=== PATIENT | female | born 1930 | race Caucasian/White ===

== ENCOUNTER 2017-08-17 05:43 | Inpatient (IN) | payer MEDICARE ==
[2017-08-17 06:03] LABS: BASO % 0.1 % (0.0-1.0); HEMATOCRIT 44.1 % (36.0-47.0); HEMOGLOBIN 13.4 g/dl (12.0-16.0); IMMATURE GRANULOCYTE # 0.1 10^3/uL (0-0); IMMATURE GRANULOCYTE % 0.7 % (0-0); LYMPH # 0.6 10^3/uL (1.5-4.5); LYMPH % 4.9 % (24.0-44.0); MEAN CORPUSCULAR HEMOGLOBIN 30.4 pg (27.0-33.0); MEAN CORPUSCULAR HGB CONC 30.4 g/dl (32.0-36.5); MONO # 1.1 10^3/uL (0.0-0.8); MONO % 9.1 % (0.0-5.0); NEUTROPHILS % 85.2 % (36.0-66.0); PLATELET COUNT, AUTOMATED 286 10^3/uL (150-450); RED BLOOD COUNT 4.41 10^6/uL (4.00-5.40); RED CELL DISTRIBUTION WIDTH 14.4 % (11.5-14.5); WHITE BLOOD COUNT 11.7 10^3/uL (4.0-10.0)
[2017-08-17] MEDS: IPRATROPIUM 0.5MG/ALBUTEROL 2.5MG INH SOL UD 3ML (DUONEB)(J7620) NEB ×8 (06:05→23:34)
[2017-08-17 06:11] LABS: ABG BASE EXCESS 11.3 (-2.0-2.0); ABG HCO3 42.7 MEQ/L (22.0-26.0); ABG PARTIAL PRESSURE O2 96.1 mmHg (75.0-100.0); ABG STANDARD HCO3 35.1 MEQ/L (22.0-26.0); ABG TOTAL CO2 45.7 MEQ/L (23.0-31.0); ABG pH (ARTERIAL) 7.263 UNITS (7.350-7.450)
[2017-08-17 06:15] LABS: ABG PARTIAL PRESSURE CO2 96.7 mmHg (35.0-45.0)
[2017-08-17] MEDS: DILUENT IV (06:30)
[2017-08-17] MEDS: PIPERACILLIN/TAZOBACTAM SOD 3.375 GM in APPROPRIATE DILUENT 1 EA IV (06:30)
[2017-08-17] MEDS: NS IV (06:30)
[2017-08-17 06:31] LABS: ANION GAP 5 MEQ/L (8-16); BLOOD UREA NITROGEN 26 MG/DL (7-18); CALCIUM LEVEL 9.3 MG/DL (8.8-10.2); CARBON DIOXIDE LEVEL 42 MEQ/L (21-32); CHLORIDE LEVEL 98 MEQ/L (98-107); CREATININE FOR GFR 0.81 MG/DL (0.55-1.30); GLOMERULAR FILTRATION RATE > 60.0 (>32); GLUCOSE, FASTING 146 MG/DL (70-100); POTASSIUM SERUM 4.2 MEQ/L (3.5-5.1); SODIUM LEVEL 145 MEQ/L (136-145); TROPONIN I 0.08 NG/ML (< 0.10)
[2017-08-17 06:32] LABS: CK-MB VALUE MASS 6.2 NG/ML (0.0-3.6); CPK CREATINE PHOSPHOKINASE 82 U/L (26-192); MB/CK RELATIVE INDEX 7.56 (< OR =4)
[2017-08-17] MEDS ORDERED: ISOVUE-370 76% 100ML VIAL (Q9967) As Ordered (06:41)
[2017-08-17 06:46] LABS: INFLUENZA A AMPLIFICATION NEGATIVE (NEGATIVE); INFLUENZA B AMPLIFICATION NEGATIVE (NEGATIVE)
[2017-08-17 07:22] LABS: ABG BASE EXCESS 8.1 (-2.0-2.0); ABG HCO3 38.6 MEQ/L (22.0-26.0); ABG O2 SATURATION 86.4 % (95.0-99.0); ABG PARTIAL PRESSURE O2 60.1 mmHg (75.0-100.0); ABG STANDARD HCO3 31.6 MEQ/L (22.0-26.0); ABG TOTAL CO2 41.3 MEQ/L (23.0-31.0)
[2017-08-17 07:26] LABS: ABG pH (ARTERIAL) 7.249 UNITS (7.350-7.450)
[2017-08-17 07:27] LABS: ABG PARTIAL PRESSURE CO2 90.2 mmHg (35.0-45.0)
[2017-08-17 08:25] LABS: BILIRUBIN, URINE MANUAL NEGATIVE (NEGATIVE); BLOOD URINE MANUAL RFX POSITIVE (NEGATIVE); GLUCOSE, URINE (UA) MANUAL NEGATIVE (NEGATIVE); KETONE, URINE MANUAL 1+ mg/dL (NEGATIVE); NITRITE, URINE MANUAL RFX NEGATIVE (NEGATIVE); PROTEIN, URINE MANUAL REFLEX TRACE mg/dL (NEGATIVE); UROBILINOGEN, URINE MANUAL NORMAL (NORMAL)
[2017-08-17 08:26] LABS: MICROSCOPIC INDICATED? RFX YES (NO)
[2017-08-17 08:41] LABS: BACTERIA, URINE NONE SEEN; HYALINE CAST, URINE NONE SEEN /lpf (0-1); MICROSCOPIC EXAM PERFORMED; RBC, URINE 0-1 /hpf (0-3); SQUAMOUS EPITHELIAL CELL URINE SMALL AMOUNT /hpf (SMALL AMT); WBC, URINE MAN RFX 0-1 /hpf (0-3)
[2017-08-17 08:42] LABS: LACTIC ACID SEPSIS PROTOCOL 2.1 MMOL/L (0.4-2.0)
[2017-08-17 08:45] LABS: AMPHETAMINES LEVEL URINE NEGATIVE (NEGATIVE); BARBITURATES URINE NEGATIVE (NEGATIVE); BENZODIAZEPINES URINE POSITIVE (NEGATIVE); CANNABINOIDS URINE NEGATIVE (NEGATIVE); COCAINE METABOLITE URINE NEGATIVE (NEGATIVE); METHADONE URINE NEGATIVE (NEGATIVE); OPIATES URINE NEGATIVE (NEGATIVE); PHENCYCLIDINE URINE NEGATIVE (NEGATIVE)
[2017-08-17 08:49] LABS: C REACTIVE PROTEIN QUANTITATIV 2.42 MG/DL (0.00-0.30); NT-PRO BNP 13971 PG/ML (<450)
[2017-08-17] MEDS: CHLORHEXIDINE ORAL RINSE 0.12%/15ML 120ML BOTTLE MT ×2 (09:00→21:01)
[2017-08-17 09:22] LABS: ERYTHROCYTE SEDIMENTATION RATE 24 mm/hr (0-42)
[2017-08-17] MEDS: AZITHROMYCIN INJ 500 MG, VIAL MATE ADAPTER 1 EACH in D5W 250 ML IV (09:35)
[2017-08-17] MEDS: methylPREDNISolone INJ 125 MG/2 ML VIAL (J2930) IV ×2 (09:35→16:38)
[2017-08-17] MEDS: ENOXAPARIN 40 MG/0.4 ML SYRINGE (J1650) SC (09:35)
[2017-08-17] MEDS ORDERED: CEFTRIAXONE SOD 2 GM in APPROPRIATE DILUENT 1 EA IV (10:00)
[2017-08-17 10:36] LABS: ABG BASE EXCESS 8.8 (-2.0-2.0); ABG HCO3 39.7 MEQ/L (22.0-26.0); ABG O2 SATURATION 96.5 % (95.0-99.0); ABG PARTIAL PRESSURE CO2 93.4 mmHg (35.0-45.0); ABG PARTIAL PRESSURE O2 96.5 mmHg (75.0-100.0); ABG STANDARD HCO3 32.6 MEQ/L (22.0-26.0); ABG TOTAL CO2 42.5 MEQ/L (23.0-31.0); ABG pH (ARTERIAL) 7.246 UNITS (7.350-7.450)
[2017-08-17] MEDS: CEFTRIAXONE SOD 2 GM in APPROPRIATE DILUENT 1 EA IV (10:53)
[2017-08-17] MEDS ORDERED: MIDAZOLAM INJ 2 MG/2 ML VIAL (J2250) As Ordered (11:54)
[2017-08-17] MEDS: MIDAZOLAM INJ 2 MG/2 ML VIAL (J2250) IV ×4 (11:55→19:51)
[2017-08-17] MEDS ORDERED: PROPOFOL 1,000 MG/100 ML VIAL As Ordered (11:57)
[2017-08-17] MEDS: PROPOFOL 1,000 MG in APPROPRIATE DILUENT 1 EA IV (12:05)
[2017-08-17] MEDS: PHENYLEPHRINE 0.5% NASAL SPRAY 15 ML As Ordered (12:18)
[2017-08-17 12:32] LABS: INR 1.27; PROTHROMBIN TIME 16.2 SECONDS (12.4-14.5)
[2017-08-17 12:33] LABS: PARTIAL THROMBOPLASTIN TIME 33.2 SECONDS (26.8-37.9)
[2017-08-17] MEDS ORDERED: NS 1,000 ML IV (12:45)
[2017-08-17 12:53] LABS: ABG BASE EXCESS 7.2 (-2.0-2.0); ABG HCO3 31.6 MEQ/L (22.0-26.0); ABG O2 SATURATION 99.7 % (95.0-99.0); ABG PARTIAL PRESSURE O2 354.4 mmHg (75.0-100.0); ABG STANDARD HCO3 31.1 MEQ/L (22.0-26.0); ABG TOTAL CO2 32.9 MEQ/L (23.0-31.0); ABG pH (ARTERIAL) 7.474 UNITS (7.350-7.450)
[2017-08-17 13:11] LABS: CK-MB VALUE MASS 5.5 NG/ML (0.0-3.6); CPK CREATINE PHOSPHOKINASE 50 U/L (26-192); TROPONIN I 0.07 NG/ML (< 0.10)
[2017-08-17] MEDS ORDERED: fentaNYL 100 MCG/2 ML INJECTION (J3010) As Ordered (13:20)
[2017-08-17] MEDS: LIDOCAINE W/EPINEPHRINE 1% 20ML VIAL As Ordered (13:23)
[2017-08-17] MEDS ORDERED: PHENYLephrine HCL 500 MCG/5 ML (100MCG/ML) SYRINGE (J2370) As Ordered ×2 (13:23→13:53)
[2017-08-17] MEDS ORDERED: ROCURONIUM BROMIDE 50 MG/5 ML VIAL As Ordered (13:55)
[2017-08-17] MEDS ORDERED: DEXTROSE 50% 50 ML SYRINGE IV (14:30)
[2017-08-17] MEDS ORDERED: GLUCOSE 4 GM CHEW TABLET PO (14:30)
[2017-08-17] MEDS ORDERED: GLUCAGON FOR INJ 1 MG VIAL (J1610) SC (14:30)
[2017-08-17] MEDS: PANTOPRAZOLE 40MG INJ (PROTONIX) (C9113) IV (14:36)
[2017-08-17] MEDS: D5W/0.45% SODIUM CHLORIDE 1,000 ML IV (14:38)
[2017-08-17] MEDS: HumaLOG INSULIN (NovoLOG) PER UNIT SC ×2 (14:49→18:16)
[2017-08-17 15:07] LABS: BEDSIDE GLUCOSE 137 MG/DL (83-110)
[2017-08-17 15:12] LABS: ABG BASE EXCESS 12.2 (-2.0-2.0); ABG HCO3 36.6 MEQ/L (22.0-26.0); ABG O2 SATURATION 95.4 % (95.0-99.0); ABG PARTIAL PRESSURE CO2 46.1 mmHg (35.0-45.0); ABG PARTIAL PRESSURE O2 67.8 mmHg (75.0-100.0); ABG pH (ARTERIAL) 7.518 UNITS (7.350-7.450)
[2017-08-17] MEDS: NS 500 ML IV (16:00)
[2017-08-17 17:21] LABS: ALBUMIN 2.7 GM/DL (3.2-5.2); ANION GAP 7 MEQ/L (8-16); BLOOD UREA NITROGEN 23 MG/DL (7-18); CALCIUM LEVEL 8.4 MG/DL (8.8-10.2); CARBON DIOXIDE LEVEL 38 MEQ/L (21-32); CHLORIDE LEVEL 102 MEQ/L (98-107); CK-MB VALUE MASS 3.8 NG/ML (0.0-3.6); CPK CREATINE PHOSPHOKINASE 38 U/L (26-192); CREATININE FOR GFR 1.02 MG/DL (0.55-1.30); GLOMERULAR FILTRATION RATE 54.8 (>32); GLUCOSE, FASTING 158 MG/DL (70-100); PHOSPHORUS LEVEL 2.4 MG/DL (2.5-4.9); POTASSIUM SERUM 3.3 MEQ/L (3.5-5.1); SODIUM LEVEL 147 MEQ/L (136-145); TROPONIN I 0.07 NG/ML (< 0.10)
[2017-08-17 18:02] LABS: BEDSIDE GLUCOSE 141 MG/DL (83-110)
[2017-08-17] MEDS: SODIUM CHLORIDE 0.45% 1000 ML IV (18:15)
[2017-08-17] MEDS: KCL 10MEQ/100ML SWI *ED/ICU* 10 MEQ in APPROPRIATE DILUENT 1 EA IV ×4 (18:16→21:57)
[2017-08-17] MEDS: MORPHINE 2 MG/ML 1ML SYRINGE (J2270) IV ×2 (19:00→22:33)
[2017-08-17 19:21] LABS: HEMATOCRIT 37.2 % (36.0-47.0); HEMOGLOBIN 11.2 g/dl (12.0-16.0)
[2017-08-17] MEDS: NYSTATIN 100,000 UNITS/GM TOPICAL PWD 15 GM TOP (21:01)
[2017-08-18 00:21] LABS: CPK CREATINE PHOSPHOKINASE 27 U/L (26-192); TROPONIN I 0.05 NG/ML (< 0.10)
[2017-08-18 00:22] LABS: CK-MB VALUE MASS 1.8 NG/ML (0.0-3.6); MB/CK RELATIVE INDEX 6.66 (< OR =4)
[2017-08-18] MEDS: methylPREDNISolone INJ 125 MG/2 ML VIAL (J2930) IV ×4 (00:34→23:58)
[2017-08-18] MEDS: HumaLOG INSULIN (NovoLOG) PER UNIT SC ×5 (00:34→23:58)
[2017-08-18 00:36] LABS: BEDSIDE GLUCOSE 166 MG/DL (83-110)
[2017-08-18] MEDS: IPRATROPIUM 0.5MG/ALBUTEROL 2.5MG INH SOL UD 3ML (DUONEB)(J7620) NEB ×6 (03:04→22:46)
[2017-08-18] MEDS: MIDAZOLAM INJ 2 MG/2 ML VIAL (J2250) IV (03:37)
[2017-08-18] MEDS: MORPHINE 2 MG/ML 1ML SYRINGE (J2270) IV ×4 (03:39→21:11)
[2017-08-18 05:06] LABS: HEMATOCRIT 33.7 % (36.0-47.0); HEMOGLOBIN 10.5 g/dl (12.0-16.0); IMMATURE GRANULOCYTE % 0.5 % (0-3.0); LYMPH % 1.2 % (24.0-44.0); MEAN CORPUSCULAR HEMOGLOBIN 29.9 pg (27.0-33.0); MEAN CORPUSCULAR HGB CONC 31.2 g/dl (32.0-36.5); MONO # 0.5 10^3/uL (0.0-0.8); MONO % 4.7 % (0.0-5.0); NEUTROPHILS # 9.4 10^3/uL (1.8-7.7); NEUTROPHILS % 93.6 % (36.0-66.0); PLATELET COUNT, AUTOMATED 196 10^3/uL (150-450); RED BLOOD COUNT 3.51 10^6/uL (4.00-5.40); RED CELL DISTRIBUTION WIDTH 14.6 % (11.5-14.5)
[2017-08-18 05:25] LABS: ANION GAP 5 MEQ/L (8-16); BLOOD UREA NITROGEN 22 MG/DL (7-18); CALCIUM LEVEL 8.2 MG/DL (8.8-10.2); CARBON DIOXIDE LEVEL 37 MEQ/L (21-32); CHLORIDE LEVEL 102 MEQ/L (98-107); CREATININE FOR GFR 0.66 MG/DL (0.55-1.30); GLOMERULAR FILTRATION RATE > 60.0 (>32); GLUCOSE, FASTING 175 MG/DL (70-100); POTASSIUM SERUM 3.5 MEQ/L (3.5-5.1); SODIUM LEVEL 144 MEQ/L (136-145)
[2017-08-18 05:26] LABS: ABG BASE EXCESS 5.6 (-2.0-2.0); ABG HCO3 31.1 MEQ/L (22.0-26.0); ABG PARTIAL PRESSURE CO2 49.2 mmHg (35.0-45.0); ABG PARTIAL PRESSURE O2 104.1 mmHg (75.0-100.0); ABG STANDARD HCO3 29.6 MEQ/L (22.0-26.0); ABG TOTAL CO2 32.6 MEQ/L (23.0-31.0); ABG pH (ARTERIAL) 7.418 UNITS (7.350-7.450)
[2017-08-18 06:16] LABS: LYMPH # 0.1 10^3/uL (1.5-4.5); POSITIVE DIFF POS FLAG
[2017-08-18] MEDS: PANTOPRAZOLE 40MG INJ (PROTONIX) (C9113) IV (08:00)
[2017-08-18] MEDS: ENOXAPARIN 40 MG/0.4 ML SYRINGE (J1650) SC (08:27)
[2017-08-18] MEDS: AZITHROMYCIN INJ 500 MG, VIAL MATE ADAPTER 1 EACH in D5W 250 ML IV (08:27)
[2017-08-18] MEDS: NYSTATIN 100,000 UNITS/GM TOPICAL PWD 15 GM TOP ×2 (08:28→20:53)
[2017-08-18] MEDS: CHLORHEXIDINE ORAL RINSE 0.12%/15ML 120ML BOTTLE MT ×2 (08:37→20:54)
[2017-08-18] MEDS: D5W/0.45% SODIUM CHLORIDE 1,000 ML IV (08:40)
[2017-08-18] MEDS: CEFTRIAXONE SOD 2 GM in APPROPRIATE DILUENT 1 EA IV (10:27)
[2017-08-18] MEDS ORDERED: ISOVUE-370 76% 100ML VIAL (Q9967) As Ordered (11:00)
[2017-08-18 11:35] LABS: BEDSIDE GLUCOSE 143 MG/DL (83-110)
[2017-08-18] MEDS: PROPOFOL 1,000 MG in APPROPRIATE DILUENT 1 EA IV (12:05)
[2017-08-18] MEDS: SLF 3 ML SYR IV ×2 (14:00→20:54)
[2017-08-18] MEDS ORDERED: SLF 3 ML SYR IV (14:15)
[2017-08-18 17:23] LABS: BEDSIDE GLUCOSE 175 MG/DL (83-110)
[2017-08-18] MEDS: ACETAMINOPHEN TAB 650MG DOSE (2X325MG) PO (23:58)
[2017-08-19] MEDS: MIDAZOLAM INJ 2 MG/2 ML VIAL (J2250) IV (00:17)
[2017-08-19 00:25] LABS: BEDSIDE GLUCOSE 206 MG/DL (83-110)
[2017-08-19] MEDS: IPRATROPIUM 0.5MG/ALBUTEROL 2.5MG INH SOL UD 3ML (DUONEB)(J7620) NEB ×6 (03:09→23:39)
[2017-08-19 04:19] LABS: BASO % 0.1 % (0.0-1.0); HEMATOCRIT 30.8 % (36.0-47.0); HEMOGLOBIN 9.9 g/dl (12.0-16.0); IMMATURE GRANULOCYTE % 0.7 % (0-3.0); LYMPH % 0.7 % (24.0-44.0); MEAN CORPUSCULAR HEMOGLOBIN 30.1 pg (27.0-33.0); MEAN CORPUSCULAR HGB CONC 32.1 g/dl (32.0-36.5); MEAN CORPUSCULAR VOLUME 93.6 fl (80.0-96.0); MONO # 0.7 10^3/uL (0.0-0.8); MONO % 4.4 % (0.0-5.0); NEUTROPHILS % 94.1 % (36.0-66.0); PLATELET COUNT, AUTOMATED 164 10^3/uL (150-450); RED BLOOD COUNT 3.29 10^6/uL (4.00-5.40); RED CELL DISTRIBUTION WIDTH 14.5 % (11.5-14.5); WHITE BLOOD COUNT 14.9 10^3/uL (4.0-10.0)
[2017-08-19 04:37] LABS: ANION GAP 6 MEQ/L (8-16); BLOOD UREA NITROGEN 26 MG/DL (7-18); CALCIUM LEVEL 8.3 MG/DL (8.8-10.2); CARBON DIOXIDE LEVEL 32 MEQ/L (21-32); CHLORIDE LEVEL 102 MEQ/L (98-107); CREATININE FOR GFR 0.77 MG/DL (0.55-1.30); GLOMERULAR FILTRATION RATE > 60.0 (>32); GLUCOSE, FASTING 117 MG/DL (70-100); POTASSIUM SERUM 3.7 MEQ/L (3.5-5.1); SODIUM LEVEL 140 MEQ/L (136-145)
[2017-08-19] MEDS: HumaLOG INSULIN (NovoLOG) PER UNIT SC ×3 (05:34→17:56)
[2017-08-19 05:38] LABS: BEDSIDE GLUCOSE 140 MG/DL (83-110)
[2017-08-19] MEDS: SLF 3 ML SYR IV ×3 (05:40→21:33)
[2017-08-19 05:48] LABS: LYMPH # 0.1 10^3/uL (1.5-4.5); POSITIVE DIFF POS FLAG
[2017-08-19 05:49] LABS: ADD MANUAL DIFFER NO; DIFF SLIDE NUMBER 36
[2017-08-19 06:06] LABS: ABG BASE EXCESS 8.2 (-2.0-2.0); ABG HCO3 31.3 MEQ/L (22.0-26.0); ABG O2 SATURATION 96.7 % (95.0-99.0); ABG PARTIAL PRESSURE CO2 37.7 mmHg (35.0-45.0); ABG PARTIAL PRESSURE O2 77.5 mmHg (75.0-100.0); ABG TOTAL CO2 32.5 MEQ/L (23.0-31.0); ABG pH (ARTERIAL) 7.537 UNITS (7.350-7.450)
[2017-08-19] MEDS: D5W/0.45% SODIUM CHLORIDE 1,000 ML IV (08:35)
[2017-08-19] MEDS: methylPREDNISolone INJ 125 MG/2 ML VIAL (J2930) IV ×2 (08:35→16:08)
[2017-08-19] MEDS: MORPHINE 4 MG/ML 1ML VIAL (J2270) IV (08:36)
[2017-08-19] MEDS: CHLORHEXIDINE ORAL RINSE 0.12%/15ML 120ML BOTTLE MT ×2 (09:46→21:00)
[2017-08-19] MEDS: PANTOPRAZOLE 40MG INJ (PROTONIX) (C9113) IV (09:47)
[2017-08-19] MEDS: NYSTATIN 100,000 UNITS/GM TOPICAL PWD 15 GM TOP ×2 (09:47→21:32)
[2017-08-19] MEDS: NICOTINE 14 MG/24 HR TRANSDERMAL TD (09:49)
[2017-08-19] MEDS: ENOXAPARIN 40 MG/0.4 ML SYRINGE (J1650) SC (09:49)
[2017-08-19] MEDS: AZITHROMYCIN INJ 500 MG, VIAL MATE ADAPTER 1 EACH in D5W 250 ML IV (09:49)
[2017-08-19] MEDS: ALPRAZolam 0.25 MG TAB PO (09:50)
[2017-08-19] MEDS: CEFTRIAXONE SOD 2 GM in APPROPRIATE DILUENT 1 EA IV (10:51)
[2017-08-19 12:07] LABS: BEDSIDE GLUCOSE 219 MG/DL (83-110)
[2017-08-19 17:59] LABS: BEDSIDE GLUCOSE 147 MG/DL (83-110)
[2017-08-20] MEDS: HumaLOG INSULIN (NovoLOG) PER UNIT SC ×4 (00:01→18:35)
[2017-08-20] MEDS: D5W/0.45% SODIUM CHLORIDE 1,000 ML IV ×2 (00:02→17:11)
[2017-08-20 00:06] LABS: BODY FLUID CULTURE Not Indicated (.); LEGIONELLA ANTIGEN URINE Negative (Negative); ORGANISM ID Not indicated. (.); SPECIMEN SOURCE Urine (.); URINE STREP PNEUMONIAE ANTIGEN Negative (Negative)
[2017-08-20 00:17] LABS: BEDSIDE GLUCOSE 192 MG/DL (83-110)
[2017-08-20] MEDS: IPRATROPIUM 0.5MG/ALBUTEROL 2.5MG INH SOL UD 3ML (DUONEB)(J7620) NEB ×5 (04:17→20:35)
[2017-08-20 04:25] LABS: HEMATOCRIT 31.3 % (36.0-47.0); HEMOGLOBIN 10.2 g/dl (12.0-16.0); IMMATURE GRANULOCYTE % 0.9 % (0-3.0); LYMPH % 0.9 % (24.0-44.0); MEAN CORPUSCULAR HGB CONC 32.6 g/dl (32.0-36.5); MEAN CORPUSCULAR VOLUME 92.1 fl (80.0-96.0); MONO # 0.6 10^3/uL (0.0-0.8); MONO % 4.7 % (0.0-5.0); NEUTROPHILS # 10.9 10^3/uL (1.8-7.7); NEUTROPHILS % 93.5 % (36.0-66.0); PLATELET COUNT, AUTOMATED 153 10^3/uL (150-450); RED CELL DISTRIBUTION WIDTH 14.6 % (11.5-14.5); WHITE BLOOD COUNT 11.7 10^3/uL (4.0-10.0)
[2017-08-20 04:38] LABS: LYMPH # 0.1 10^3/uL (1.5-4.5); POSITIVE DIFF POS FLAG
[2017-08-20 04:45] LABS: ANION GAP 4 MEQ/L (8-16); BLOOD UREA NITROGEN 22 MG/DL (7-18); CALCIUM LEVEL 8.5 MG/DL (8.8-10.2); CARBON DIOXIDE LEVEL 33 MEQ/L (21-32); CHLORIDE LEVEL 101 MEQ/L (98-107); CREATININE FOR GFR 0.48 MG/DL (0.55-1.30); GLOMERULAR FILTRATION RATE > 60.0 (>32); GLUCOSE, FASTING 105 MG/DL (70-100); POTASSIUM SERUM 3.8 MEQ/L (3.5-5.1); SODIUM LEVEL 138 MEQ/L (136-145)
[2017-08-20 06:01] LABS: ABG BASE EXCESS 3.5 (-2.0-2.0); ABG HCO3 27.4 MEQ/L (22.0-26.0); ABG O2 SATURATION 99.2 % (95.0-99.0); ABG PARTIAL PRESSURE CO2 38.8 mmHg (35.0-45.0); ABG STANDARD HCO3 27.6 MEQ/L (22.0-26.0); ABG TOTAL CO2 28.5 MEQ/L (23.0-31.0); ABG pH (ARTERIAL) 7.466 UNITS (7.350-7.450)
[2017-08-20 06:23] LABS: BEDSIDE GLUCOSE 156 MG/DL (83-110)
[2017-08-20] MEDS: SLF 3 ML SYR IV ×3 (06:25→21:19)
[2017-08-20] MEDS: methylPREDNISolone INJ 125 MG/2 ML VIAL (J2930) IV ×2 (07:30)
[2017-08-20] MEDS: ENOXAPARIN 40 MG/0.4 ML SYRINGE (J1650) SC (08:39)
[2017-08-20] MEDS: NYSTATIN 100,000 UNITS/GM TOPICAL PWD 15 GM TOP ×2 (08:40→21:18)
[2017-08-20] MEDS: NICOTINE 14 MG/24 HR TRANSDERMAL TD (08:40)
[2017-08-20] MEDS: PANTOPRAZOLE 40MG INJ (PROTONIX) (C9113) IV (08:40)
[2017-08-20] MEDS: AZITHROMYCIN INJ 500 MG, VIAL MATE ADAPTER 1 EACH in D5W 250 ML IV (08:40)
[2017-08-20] MEDS: CHLORHEXIDINE ORAL RINSE 0.12%/15ML 120ML BOTTLE MT ×2 (08:41→21:18)
[2017-08-20] MEDS: CEFTRIAXONE SOD 2 GM in APPROPRIATE DILUENT 1 EA IV (09:50)
[2017-08-20 11:45] LABS: BEDSIDE GLUCOSE 166 MG/DL (83-110)
[2017-08-20] MEDS: ALPRAZolam 0.25 MG TAB PO ×2 (11:57→21:18)
[2017-08-20] MEDS: ONDANSETRON 4MG/2ML VIAL (J2405) IV (11:57)
[2017-08-20 18:38] LABS: BEDSIDE GLUCOSE 139 MG/DL (83-110)
[2017-08-21] MEDS: IPRATROPIUM 0.5MG/ALBUTEROL 2.5MG INH SOL UD 3ML (DUONEB)(J7620) NEB ×7 (00:09→23:31)
[2017-08-21 00:14] LABS: BEDSIDE GLUCOSE 131 MG/DL (83-110)
[2017-08-21] MEDS: D5W/0.45% SODIUM CHLORIDE 1,000 ML IV ×2 (02:20→10:07)
[2017-08-21 04:27] LABS: HEMATOCRIT 31.4 % (36.0-47.0); HEMOGLOBIN 10.1 g/dl (12.0-16.0); IMMATURE GRANULOCYTE % 0.6 % (0-3.0); LYMPH # 0.3 10^3/uL (1.5-4.5); LYMPH % 3.9 % (24.0-44.0); MEAN CORPUSCULAR HEMOGLOBIN 30.3 pg (27.0-33.0); MEAN CORPUSCULAR HGB CONC 32.2 g/dl (32.0-36.5); MEAN CORPUSCULAR VOLUME 94.3 fl (80.0-96.0); MONO # 0.9 10^3/uL (0.0-0.8); MONO % 9.7 % (0.0-5.0); NEUTROPHILS # 7.5 10^3/uL (1.8-7.7); NEUTROPHILS % 85.8 % (36.0-66.0); PLATELET COUNT, AUTOMATED 129 10^3/uL (150-450); RED BLOOD COUNT 3.33 10^6/uL (4.00-5.40); RED CELL DISTRIBUTION WIDTH 14.6 % (11.5-14.5); WHITE BLOOD COUNT 8.8 10^3/uL (4.0-10.0)
[2017-08-21 04:48] LABS: ANION GAP 6 MEQ/L (8-16); BLOOD UREA NITROGEN 17 MG/DL (7-18); CALCIUM LEVEL 7.8 MG/DL (8.8-10.2); CARBON DIOXIDE LEVEL 33 MEQ/L (21-32); CHLORIDE LEVEL 101 MEQ/L (98-107); CREATININE FOR GFR 0.51 MG/DL (0.55-1.30); GLOMERULAR FILTRATION RATE > 60.0 (>32); GLUCOSE, FASTING 103 MG/DL (70-100); POTASSIUM SERUM 3.6 MEQ/L (3.5-5.1); SODIUM LEVEL 140 MEQ/L (136-145)
[2017-08-21] MEDS: SLF 3 ML SYR IV ×3 (06:00→21:43)
[2017-08-21] MEDS: HumaLOG INSULIN (NovoLOG) PER UNIT SC ×4 (06:00→17:23)
[2017-08-21] MEDS: methylPREDNISolone INJ 125 MG/2 ML VIAL (J2930) IV (09:56)
[2017-08-21] MEDS: PANTOPRAZOLE 40MG INJ (PROTONIX) (C9113) IV (09:56)
[2017-08-21] MEDS: CHLORHEXIDINE ORAL RINSE 0.12%/15ML 120ML BOTTLE MT ×2 (09:56→21:00)
[2017-08-21] MEDS: NYSTATIN 100,000 UNITS/GM TOPICAL PWD 15 GM TOP ×2 (09:56→21:43)
[2017-08-21] MEDS: AZITHROMYCIN INJ 500 MG, VIAL MATE ADAPTER 1 EACH in D5W 250 ML IV (09:56)
[2017-08-21] MEDS: ENOXAPARIN 40 MG/0.4 ML SYRINGE (J1650) SC (09:56)
[2017-08-21] MEDS: NICOTINE 14 MG/24 HR TRANSDERMAL TD (09:57)
[2017-08-21] MEDS: CEFTRIAXONE SOD 2 GM in APPROPRIATE DILUENT 1 EA IV (11:09)
[2017-08-21] MEDS: ALPRAZolam 0.25 MG TAB PO (11:16)
[2017-08-21 13:04] LABS: BEDSIDE GLUCOSE 108 MG/DL (83-110)
[2017-08-21 13:04] LABS: BEDSIDE GLUCOSE 185 MG/DL (83-110)
[2017-08-21] MEDS: ACETAMINOPHEN TAB 650MG DOSE (2X325MG) PO (15:23)
[2017-08-21 17:16] LABS: BEDSIDE GLUCOSE 128 MG/DL (83-110)
[2017-08-22] MEDS: HumaLOG INSULIN (NovoLOG) PER UNIT SC ×4 (00:25→18:30)
[2017-08-22] MEDS: D5W/0.45% SODIUM CHLORIDE 1,000 ML IV (01:54)
[2017-08-22] MEDS: IPRATROPIUM 0.5MG/ALBUTEROL 2.5MG INH SOL UD 3ML (DUONEB)(J7620) NEB ×5 (04:00→20:00)
[2017-08-22] MEDS: SLF 3 ML SYR IV ×3 (05:38→22:00)
[2017-08-22 06:01] LABS: BASO % 0.1 % (0.0-1.0); EOS % 0.1 % (0.0-3.0); HEMATOCRIT 34.5 % (36.0-47.0); HEMOGLOBIN 10.9 g/dl (12.0-16.0); IMMATURE GRANULOCYTE % 0.3 % (0-3.0); LYMPH # 0.4 10^3/uL (1.5-4.5); LYMPH % 4.1 % (24.0-44.0); MEAN CORPUSCULAR HEMOGLOBIN 29.9 pg (27.0-33.0); MEAN CORPUSCULAR HGB CONC 31.6 g/dl (32.0-36.5); MEAN CORPUSCULAR VOLUME 94.5 fl (80.0-96.0); MONO % 11.1 % (0.0-5.0); NEUTROPHILS # 7.4 10^3/uL (1.8-7.7); NEUTROPHILS % 84.3 % (36.0-66.0); PLATELET COUNT, AUTOMATED 147 10^3/uL (150-450); RED BLOOD COUNT 3.65 10^6/uL (4.00-5.40); RED CELL DISTRIBUTION WIDTH 14.7 % (11.5-14.5); WHITE BLOOD COUNT 8.8 10^3/uL (4.0-10.0)
[2017-08-22 06:20] LABS: ANION GAP 5 MEQ/L (8-16); BLOOD UREA NITROGEN 17 MG/DL (7-18); CALCIUM LEVEL 8.4 MG/DL (8.8-10.2); CARBON DIOXIDE LEVEL 33 MEQ/L (21-32); CHLORIDE LEVEL 102 MEQ/L (98-107); CREATININE FOR GFR 0.42 MG/DL (0.55-1.30); GLOMERULAR FILTRATION RATE > 60.0 (>32); GLUCOSE, FASTING 97 MG/DL (70-100); POTASSIUM SERUM 3.8 MEQ/L (3.5-5.1); SODIUM LEVEL 140 MEQ/L (136-145)
[2017-08-22] MEDS: AZITHROMYCIN INJ 500 MG, VIAL MATE ADAPTER 1 EACH in D5W 250 ML IV (08:38)
[2017-08-22] MEDS: methylPREDNISolone INJ 125 MG/2 ML VIAL (J2930) IV (08:39)
[2017-08-22] MEDS: PANTOPRAZOLE 40MG INJ (PROTONIX) (C9113) IV (08:39)
[2017-08-22] MEDS: ALPRAZolam 0.25 MG TAB PO ×2 (08:41→18:29)
[2017-08-22] MEDS: NICOTINE 14 MG/24 HR TRANSDERMAL TD (08:42)
[2017-08-22] MEDS: CHLORHEXIDINE ORAL RINSE 0.12%/15ML 120ML BOTTLE MT ×2 (08:42→22:19)
[2017-08-22] MEDS: NYSTATIN 100,000 UNITS/GM TOPICAL PWD 15 GM TOP ×2 (08:50→22:20)
[2017-08-22] MEDS: CEFTRIAXONE SOD 2 GM in APPROPRIATE DILUENT 1 EA IV (10:41)
[2017-08-22 12:09] LABS: BEDSIDE GLUCOSE 148 MG/DL (83-110)
[2017-08-22 12:09] LABS: BEDSIDE GLUCOSE 161 MG/DL (83-110)
[2017-08-22 21:45] LABS: BEDSIDE GLUCOSE 142 MG/DL (83-110)
[2017-08-22] MEDS: ACETAMINOPHEN TAB 650MG DOSE (2X325MG) PO (23:06)
[2017-08-23 00:03] LABS: BEDSIDE GLUCOSE 171 MG/DL (83-110)
[2017-08-23] MEDS: HumaLOG INSULIN (NovoLOG) PER UNIT SC ×4 (00:04→18:00)
[2017-08-23] MEDS: IPRATROPIUM 0.5MG/ALBUTEROL 2.5MG INH SOL UD 3ML (DUONEB)(J7620) NEB ×7 (00:06→23:43)
[2017-08-23] MEDS: SLF 3 ML SYR IV ×3 (05:50→21:21)
[2017-08-23] MEDS: D5W/0.45% SODIUM CHLORIDE 1,000 ML IV (05:59)
[2017-08-23] MEDS: methylPREDNISolone INJ 125 MG/2 ML VIAL (J2930) IV (08:44)
[2017-08-23] MEDS: PANTOPRAZOLE 40MG INJ (PROTONIX) (C9113) IV (08:44)
[2017-08-23] MEDS: CHLORHEXIDINE ORAL RINSE 0.12%/15ML 120ML BOTTLE MT ×2 (08:44→20:23)
[2017-08-23] MEDS: ALPRAZolam 0.25 MG TAB PO ×2 (08:45→20:23)
[2017-08-23] MEDS: AZITHROMYCIN INJ 500 MG, VIAL MATE ADAPTER 1 EACH in D5W 250 ML IV (08:45)
[2017-08-23] MEDS: NICOTINE 14 MG/24 HR TRANSDERMAL TD (08:45)
[2017-08-23] MEDS: NYSTATIN 100,000 UNITS/GM TOPICAL PWD 15 GM TOP ×2 (08:45→20:24)
[2017-08-23] MEDS: CEFTRIAXONE SOD 2 GM in APPROPRIATE DILUENT 1 EA IV (10:40)
[2017-08-23 11:58] LABS: BEDSIDE GLUCOSE 140 MG/DL (83-110)
[2017-08-23 18:04] LABS: BEDSIDE GLUCOSE 115 MG/DL (83-110)
[2017-08-23 18:04] LABS: BEDSIDE GLUCOSE 140 MG/DL (83-110)
[2017-08-24 00:01] LABS: BEDSIDE GLUCOSE 121 MG/DL (83-110)
[2017-08-24] MEDS: HumaLOG INSULIN (NovoLOG) PER UNIT SC ×4 (00:03→18:01)
[2017-08-24] MEDS: ACETAMINOPHEN TAB 650MG DOSE (2X325MG) PO (01:10)
[2017-08-24] MEDS: IPRATROPIUM 0.5MG/ALBUTEROL 2.5MG INH SOL UD 3ML (DUONEB)(J7620) NEB ×4 (03:34→20:00)
[2017-08-24] MEDS: SLF 3 ML SYR IV ×3 (05:52→21:50)
[2017-08-24] MEDS: D5W/0.45% SODIUM CHLORIDE 1,000 ML IV ×2 (05:52→19:11)
[2017-08-24 05:55] LABS: BEDSIDE GLUCOSE 117 MG/DL (83-110)
[2017-08-24] MEDS: CHLORHEXIDINE ORAL RINSE 0.12%/15ML 120ML BOTTLE MT ×2 (10:04→21:48)
[2017-08-24] MEDS: PANTOPRAZOLE 40MG INJ (PROTONIX) (C9113) IV (10:05)
[2017-08-24] MEDS: NYSTATIN 100,000 UNITS/GM TOPICAL PWD 15 GM TOP ×2 (10:05→21:49)
[2017-08-24] MEDS: methylPREDNISolone INJ 40 MG/1 ML VIAL (J2920) IV (10:05)
[2017-08-24] MEDS: NICOTINE 14 MG/24 HR TRANSDERMAL TD (10:05)
[2017-08-24] MEDS: ALPRAZolam 0.25 MG TAB PO ×3 (11:24→23:43)
[2017-08-24 17:36] LABS: BEDSIDE GLUCOSE 110 MG/DL (83-110)
[2017-08-24 17:37] LABS: BEDSIDE GLUCOSE 133 MG/DL (83-110)
[2017-08-25] MEDS: HumaLOG INSULIN (NovoLOG) PER UNIT SC ×4 (00:15→17:37)
[2017-08-25] MEDS: IPRATROPIUM 0.5MG/ALBUTEROL 2.5MG INH SOL UD 3ML (DUONEB)(J7620) NEB ×6 (01:31→21:53)
[2017-08-25 01:41] LABS: BEDSIDE GLUCOSE 112 MG/DL (83-110)
[2017-08-25] MEDS: ALPRAZolam 0.25 MG TAB PO ×4 (04:16→22:12)
[2017-08-25] MEDS: SLF 3 ML SYR IV ×3 (06:00→20:17)
[2017-08-25 06:45] LABS: BEDSIDE GLUCOSE 85 MG/DL (83-110)
[2017-08-25 07:31] LABS: BASO % 0.1 % (0.0-1.0); EOS # 0.1 10^3/uL (0.0-0.50); EOS % 0.7 % (0.0-3.0); HEMATOCRIT 36.9 % (36.0-47.0); HEMOGLOBIN 11.7 g/dl (12.0-16.0); IMMATURE GRANULOCYTE % 0.5 % (0-3.0); LYMPH # 0.6 10^3/uL (1.5-4.5); LYMPH % 5.6 % (24.0-44.0); MEAN CORPUSCULAR HEMOGLOBIN 30.5 pg (27.0-33.0); MEAN CORPUSCULAR HGB CONC 31.7 g/dl (32.0-36.5); MEAN CORPUSCULAR VOLUME 96.1 fl (80.0-96.0); MONO % 8.8 % (0.0-5.0); NEUTROPHILS # 9.3 10^3/uL (1.8-7.7); NEUTROPHILS % 84.3 % (36.0-66.0); PLATELET COUNT, AUTOMATED 192 10^3/uL (150-450); RED BLOOD COUNT 3.84 10^6/uL (4.00-5.40); RED CELL DISTRIBUTION WIDTH 15.1 % (11.5-14.5)
[2017-08-25 07:46] LABS: ANION GAP 6 MEQ/L (8-16); BLOOD UREA NITROGEN 11 MG/DL (7-18); CALCIUM LEVEL 8.4 MG/DL (8.8-10.2); CARBON DIOXIDE LEVEL 34 MEQ/L (21-32); CHLORIDE LEVEL 106 MEQ/L (98-107); CREATININE FOR GFR 0.43 MG/DL (0.55-1.30); GLOMERULAR FILTRATION RATE > 60.0 (>32); GLUCOSE, FASTING 109 MG/DL (70-100); POTASSIUM SERUM 3.4 MEQ/L (3.5-5.1); SODIUM LEVEL 146 MEQ/L (136-145)
[2017-08-25] MEDS: NYSTATIN 100,000 UNITS/GM TOPICAL PWD 15 GM TOP ×2 (09:00→20:16)
[2017-08-25] MEDS: D5W/0.45% SODIUM CHLORIDE 1,000 ML IV (09:05)
[2017-08-25] MEDS: NICOTINE 14 MG/24 HR TRANSDERMAL TD (09:06)
[2017-08-25] MEDS: CHLORHEXIDINE ORAL RINSE 0.12%/15ML 120ML BOTTLE MT ×2 (09:06→20:17)
[2017-08-25] MEDS: PANTOPRAZOLE 40MG INJ (PROTONIX) (C9113) IV (09:06)
[2017-08-25] MEDS: methylPREDNISolone INJ 40 MG/1 ML VIAL (J2920) IV (09:06)
[2017-08-25 11:56] LABS: BEDSIDE GLUCOSE 157 MG/DL (83-110)
[2017-08-25] MEDS: POTASSIUM CHLORIDE 10% LIQ 20 MEQ/15 ML UDC PO (12:52)
[2017-08-25 17:41] LABS: BEDSIDE GLUCOSE 149 MG/DL (83-110)
[2017-08-25] MEDS: SCOPOLAMINE 1MG TRANSDERMAL PATCH TOP (22:41)
[2017-08-26] MEDS: IPRATROPIUM 0.5MG/ALBUTEROL 2.5MG INH SOL UD 3ML (DUONEB)(J7620) NEB ×6 (00:12→20:14)
[2017-08-26 00:13] LABS: BEDSIDE GLUCOSE 115 MG/DL (83-110)
[2017-08-26] MEDS: HumaLOG INSULIN (NovoLOG) PER UNIT SC ×4 (00:25→18:00)
[2017-08-26] MEDS: ALPRAZolam 0.25 MG TAB PO ×3 (02:02→18:01)
[2017-08-26 06:06] LABS: BEDSIDE GLUCOSE 76 MG/DL (83-110)
[2017-08-26] MEDS: SLF 3 ML SYR IV ×3 (06:11→20:35)
[2017-08-26] MEDS: methylPREDNISolone INJ 40 MG/1 ML VIAL (J2920) IV (10:23)
[2017-08-26] MEDS: PANTOPRAZOLE 40MG INJ (PROTONIX) (C9113) IV (10:23)
[2017-08-26] MEDS: NICOTINE 14 MG/24 HR TRANSDERMAL TD (10:24)
[2017-08-26] MEDS: CHLORHEXIDINE ORAL RINSE 0.12%/15ML 120ML BOTTLE MT ×2 (10:27→20:35)
[2017-08-26] MEDS: NYSTATIN 100,000 UNITS/GM TOPICAL PWD 15 GM TOP ×2 (10:28→20:35)
[2017-08-26 11:50] LABS: BEDSIDE GLUCOSE 93 MG/DL (83-110)
[2017-08-26 17:06] LABS: BEDSIDE GLUCOSE 166 MG/DL (83-110)
[2017-08-27] MEDS: IPRATROPIUM 0.5MG/ALBUTEROL 2.5MG INH SOL UD 3ML (DUONEB)(J7620) NEB ×7 (00:23→23:41)
[2017-08-27] MEDS: HumaLOG INSULIN (NovoLOG) PER UNIT SC ×4 (00:52→18:25)
[2017-08-27 00:53] LABS: BEDSIDE GLUCOSE 135 MG/DL (83-110)
[2017-08-27] MEDS: ALPRAZolam 0.25 MG TAB PO ×3 (02:27→20:27)
[2017-08-27 06:11] LABS: BEDSIDE GLUCOSE 74 MG/DL (83-110)
[2017-08-27] MEDS: ACETAMINOPHEN TAB 650MG DOSE (2X325MG) PO ×2 (06:14→17:28)
[2017-08-27] MEDS: SLF 3 ML SYR IV ×3 (06:14→20:30)
[2017-08-27] MEDS: PANTOPRAZOLE 40MG INJ (PROTONIX) (C9113) IV (10:52)
[2017-08-27] MEDS: methylPREDNISolone INJ 40 MG/1 ML VIAL (J2920) IV (10:53)
[2017-08-27] MEDS: CHLORHEXIDINE ORAL RINSE 0.12%/15ML 120ML BOTTLE MT ×2 (10:54→20:28)
[2017-08-27] MEDS: NYSTATIN 100,000 UNITS/GM TOPICAL PWD 15 GM TOP ×2 (10:55→20:29)
[2017-08-27] MEDS: NICOTINE 14 MG/24 HR TRANSDERMAL TD (11:11)
[2017-08-27 12:10] LABS: BEDSIDE GLUCOSE 104 MG/DL (83-110)
[2017-08-27 18:18] LABS: BEDSIDE GLUCOSE 136 MG/DL (83-110)
[2017-08-28 00:38] LABS: BEDSIDE GLUCOSE 140 MG/DL (83-110)
[2017-08-28] MEDS: HumaLOG INSULIN (NovoLOG) PER UNIT SC ×4 (00:38→18:01)
[2017-08-28] MEDS: ALPRAZolam 0.25 MG TAB PO ×5 (02:03→22:24)
[2017-08-28] MEDS: IPRATROPIUM 0.5MG/ALBUTEROL 2.5MG INH SOL UD 3ML (DUONEB)(J7620) NEB ×5 (03:13→23:54)
[2017-08-28] MEDS: SLF 3 ML SYR IV ×3 (06:31→22:24)
[2017-08-28 06:32] LABS: BEDSIDE GLUCOSE 77 MG/DL (83-110)
[2017-08-28] MEDS: NICOTINE 14 MG/24 HR TRANSDERMAL TD (08:12)
[2017-08-28] MEDS: PANTOPRAZOLE 40MG INJ (PROTONIX) (C9113) IV (08:12)
[2017-08-28] MEDS: predniSONE 10 MG TAB PO (08:13)
[2017-08-28 08:31] LABS: EOS # 0.1 10^3/uL (0.0-0.50); EOS % 0.7 % (0.0-3.0); HEMATOCRIT 33.6 % (36.0-47.0); HEMOGLOBIN 10.7 g/dl (12.0-16.0); IMMATURE GRANULOCYTE % 0.4 % (0-3.0); LYMPH # 0.7 10^3/uL (1.5-4.5); LYMPH % 8.4 % (24.0-44.0); MEAN CORPUSCULAR HEMOGLOBIN 30.6 pg (27.0-33.0); MEAN CORPUSCULAR HGB CONC 31.8 g/dl (32.0-36.5); MONO # 0.5 10^3/uL (0.0-0.8); MONO % 6.2 % (0.0-5.0); NEUTROPHILS % 84.3 % (36.0-66.0); PLATELET COUNT, AUTOMATED 209 10^3/uL (150-450); RED CELL DISTRIBUTION WIDTH 14.8 % (11.5-14.5); WHITE BLOOD COUNT 8.3 10^3/uL (4.0-10.0)
[2017-08-28 08:47] LABS: ANION GAP 6 MEQ/L (8-16); BLOOD UREA NITROGEN 16 MG/DL (7-18); CALCIUM LEVEL 8.1 MG/DL (8.8-10.2); CARBON DIOXIDE LEVEL 36 MEQ/L (21-32); CHLORIDE LEVEL 103 MEQ/L (98-107); CREATININE FOR GFR 0.45 MG/DL (0.55-1.30); GLOMERULAR FILTRATION RATE > 60.0 (>32); GLUCOSE, FASTING 126 MG/DL (70-100); POTASSIUM SERUM 3.7 MEQ/L (3.5-5.1); SODIUM LEVEL 145 MEQ/L (136-145)
[2017-08-28] MEDS: NYSTATIN 100,000 UNITS/GM TOPICAL PWD 15 GM TOP ×2 (09:36→20:52)
[2017-08-28] MEDS: CHLORHEXIDINE ORAL RINSE 0.12%/15ML 120ML BOTTLE MT ×2 (09:36→20:52)
[2017-08-28 11:40] LABS: BEDSIDE GLUCOSE 144 MG/DL (83-110)
[2017-08-28 17:50] LABS: BEDSIDE GLUCOSE 125 MG/DL (83-110)
[2017-08-28] MEDS: ALBUTEROL SULFATE 2.5 MG/0.5 ML INH NEB SOLN NEB (21:08)
[2017-08-28] MEDS: SCOPOLAMINE 1MG TRANSDERMAL PATCH TOP (22:25)
[2017-08-29 01:21] LABS: BEDSIDE GLUCOSE 98 MG/DL (83-110)
[2017-08-29] MEDS: IPRATROPIUM 0.5MG/ALBUTEROL 2.5MG INH SOL UD 3ML (DUONEB)(J7620) NEB ×6 (02:32→23:32)
[2017-08-29] MEDS: ALPRAZolam 0.25 MG TAB PO ×3 (04:23→16:10)
[2017-08-29] MEDS: HumaLOG INSULIN (NovoLOG) PER UNIT SC ×5 (06:00→23:43)
[2017-08-29] MEDS: SLF 3 ML SYR IV ×3 (06:00→20:25)
[2017-08-29 06:05] LABS: BEDSIDE GLUCOSE 81 MG/DL (83-110)
[2017-08-29] MEDS: predniSONE 10 MG TAB PO (09:43)
[2017-08-29] MEDS: PANTOPRAZOLE 40MG INJ (PROTONIX) (C9113) IV (09:43)
[2017-08-29] MEDS: NICOTINE 14 MG/24 HR TRANSDERMAL TD (09:45)
[2017-08-29] MEDS: CHLORHEXIDINE ORAL RINSE 0.12%/15ML 120ML BOTTLE MT ×2 (09:45→20:25)
[2017-08-29] MEDS: NYSTATIN 100,000 UNITS/GM TOPICAL PWD 15 GM TOP ×2 (09:46→20:25)
[2017-08-29 11:51] LABS: BEDSIDE GLUCOSE 118 MG/DL (83-110)
[2017-08-30] MEDS: IPRATROPIUM 0.5MG/ALBUTEROL 2.5MG INH SOL UD 3ML (DUONEB)(J7620) NEB ×5 (02:43→19:36)
[2017-08-30] MEDS: HumaLOG INSULIN (NovoLOG) PER UNIT SC ×3 (06:00→17:33)
[2017-08-30] MEDS: SLF 3 ML SYR IV ×3 (06:14→20:17)
[2017-08-30] MEDS: NICOTINE 14 MG/24 HR TRANSDERMAL TD (08:55)
[2017-08-30] MEDS: PANTOPRAZOLE 40MG INJ (PROTONIX) (C9113) IV (08:56)
[2017-08-30] MEDS: NYSTATIN 100,000 UNITS/GM TOPICAL PWD 15 GM TOP ×2 (08:56→20:16)
[2017-08-30] MEDS: CHLORHEXIDINE ORAL RINSE 0.12%/15ML 120ML BOTTLE MT ×2 (08:56→20:17)
[2017-08-30] MEDS: predniSONE 10 MG TAB PO (08:56)
[2017-08-30 09:00] LABS: BEDSIDE GLUCOSE 84 MG/DL (83-110)
[2017-08-30 09:00] LABS: BEDSIDE GLUCOSE 156 MG/DL (83-110)
[2017-08-30 09:00] LABS: BEDSIDE GLUCOSE 134 MG/DL (83-110)
[2017-08-30] MEDS: ALPRAZolam 0.25 MG TAB PO ×2 (13:36→19:26)
[2017-08-30] MEDS ORDERED: PROPOFOL 200 MG/20 ML VIAL As Ordered (14:47)
[2017-08-30] MEDS ORDERED: LIDOCAINE 2% INJ 100 MG/5 ML SYRINGE As Ordered (14:47)
[2017-08-30] MEDS ORDERED: ceFAZolin 2 GM/D5W 50 ML IV BAG (J0690 PER 500MG) As Ordered (15:02)
[2017-08-30] MEDS ORDERED: fentaNYL 100 MCG/2 ML INJECTION (J3010) As Ordered (15:21)
[2017-08-30] MEDS ORDERED: GLYCOPYRROLATE INJ 0.2 MG/ML 2 ML VIAL As Ordered (15:31)
[2017-08-30 17:05] LABS: BEDSIDE GLUCOSE 96 MG/DL (83-110)
[2017-08-30 17:37] LABS: BEDSIDE GLUCOSE 95 MG/DL (83-110)
[2017-08-30] MEDS: ACETAMINOPHEN TAB 650MG DOSE (2X325MG) PO (19:26)
[2017-08-31] MEDS: HumaLOG INSULIN (NovoLOG) PER UNIT SC ×4 (00:21→17:06)
[2017-08-31] MEDS: ALPRAZolam 0.25 MG TAB PO ×2 (00:21→16:17)
[2017-08-31] MEDS: IPRATROPIUM 0.5MG/ALBUTEROL 2.5MG INH SOL UD 3ML (DUONEB)(J7620) NEB ×7 (00:39→23:59)
[2017-08-31 01:26] LABS: BEDSIDE GLUCOSE 103 MG/DL (83-110)
[2017-08-31 06:28] LABS: BEDSIDE GLUCOSE 109 MG/DL (83-110)
[2017-08-31] MEDS: NICOTINE 14 MG/24 HR TRANSDERMAL TD (09:46)
[2017-08-31] MEDS: CHLORHEXIDINE ORAL RINSE 0.12%/15ML 120ML BOTTLE MT ×2 (09:46→20:43)
[2017-08-31] MEDS: NYSTATIN 100,000 UNITS/GM TOPICAL PWD 15 GM TOP ×2 (09:47→20:43)
[2017-08-31] MEDS: predniSONE 10 MG TAB PO (09:47)
[2017-08-31 11:53] LABS: BEDSIDE GLUCOSE 118 MG/DL (83-110)
[2017-08-31] MEDS: ACETAMINOPHEN TAB 650MG DOSE (2X325MG) PO (13:31)
[2017-08-31 17:02] LABS: BEDSIDE GLUCOSE 143 MG/DL (83-110)
[2017-08-31] MEDS: ONDANSETRON 4MG/2ML VIAL (J2405) IV (20:43)
[2017-08-31] MEDS: SCOPOLAMINE 1MG TRANSDERMAL PATCH TOP (21:51)
[2017-09-01 00:23] LABS: BEDSIDE GLUCOSE 133 MG/DL (83-110)
[2017-09-01] MEDS: HumaLOG INSULIN (NovoLOG) PER UNIT SC ×4 (00:23→17:33)
[2017-09-01] MEDS: IPRATROPIUM 0.5MG/ALBUTEROL 2.5MG INH SOL UD 3ML (DUONEB)(J7620) NEB ×6 (04:40→23:26)
[2017-09-01 06:05] LABS: BEDSIDE GLUCOSE 80 MG/DL (83-110)
[2017-09-01] MEDS: predniSONE 10 MG TAB PO (10:19)
[2017-09-01] MEDS: NICOTINE 14 MG/24 HR TRANSDERMAL TD (10:20)
[2017-09-01] MEDS: CHLORHEXIDINE ORAL RINSE 0.12%/15ML 120ML BOTTLE MT ×2 (10:20→21:52)
[2017-09-01] MEDS: NYSTATIN 100,000 UNITS/GM TOPICAL PWD 15 GM TOP ×2 (10:21→21:53)
[2017-09-01 12:10] LABS: BEDSIDE GLUCOSE 129 MG/DL (83-110)
[2017-09-01] MEDS: ALPRAZolam 0.25 MG TAB PO (16:46)
[2017-09-01 17:21] LABS: BEDSIDE GLUCOSE 150 MG/DL (83-110)
[2017-09-02 00:11] LABS: BEDSIDE GLUCOSE 165 MG/DL (83-110)
[2017-09-02] MEDS: HumaLOG INSULIN (NovoLOG) PER UNIT SC ×4 (00:27→18:00)
[2017-09-02] MEDS: IPRATROPIUM 0.5MG/ALBUTEROL 2.5MG INH SOL UD 3ML (DUONEB)(J7620) NEB ×6 (03:33→23:11)
[2017-09-02 08:32] LABS: BEDSIDE GLUCOSE 81 MG/DL (83-110)
[2017-09-02] MEDS: predniSONE 10 MG TAB PO (10:17)
[2017-09-02] MEDS: NICOTINE 14 MG/24 HR TRANSDERMAL TD (10:17)
[2017-09-02] MEDS: NYSTATIN 100,000 UNITS/GM TOPICAL PWD 15 GM TOP ×2 (10:18→22:08)
[2017-09-02] MEDS: CHLORHEXIDINE ORAL RINSE 0.12%/15ML 120ML BOTTLE MT ×2 (10:19→22:07)
[2017-09-02] MEDS: ALPRAZolam 0.25 MG TAB PO ×2 (11:43→18:23)
[2017-09-02 11:48] LABS: BEDSIDE GLUCOSE 120 MG/DL (83-110)
[2017-09-02 16:58] LABS: BEDSIDE GLUCOSE 156 MG/DL (83-110)
[2017-09-02 21:09] LABS: BEDSIDE GLUCOSE 161 MG/DL (83-110)
[2017-09-03] MEDS: ACETAMINOPHEN TAB 650MG DOSE (2X325MG) PO ×3 (00:10→22:42)
[2017-09-03] MEDS: HumaLOG INSULIN (NovoLOG) PER UNIT SC ×5 (00:33→23:49)
[2017-09-03 00:36] LABS: BEDSIDE GLUCOSE 146 MG/DL (83-110)
[2017-09-03] MEDS: IPRATROPIUM 0.5MG/ALBUTEROL 2.5MG INH SOL UD 3ML (DUONEB)(J7620) NEB ×5 (04:26→20:51)
[2017-09-03] MEDS: ALPRAZolam 0.25 MG TAB PO (07:05)
[2017-09-03 07:44] LABS: BEDSIDE GLUCOSE 80 MG/DL (83-110)
[2017-09-03] MEDS: FLUMAZENIL 0.5 MG/5 ML VIAL IV (09:05)
[2017-09-03 09:42] LABS: ABG BASE EXCESS 5.9 (-2.0-2.0); ABG HCO3 30.2 MEQ/L (22.0-26.0); ABG O2 SATURATION 96.8 % (95.0-99.0); ABG PARTIAL PRESSURE CO2 42.6 mmHg (35.0-45.0); ABG PARTIAL PRESSURE O2 83.1 mmHg (75.0-100.0); ABG STANDARD HCO3 29.8 MEQ/L (22.0-26.0); ABG TOTAL CO2 31.5 MEQ/L (23.0-31.0); ABG pH (ARTERIAL) 7.468 UNITS (7.350-7.450)
[2017-09-03 10:12] LABS: BASO % 0.1 % (0.0-1.0); EOS # 0.1 10^3/uL (0.0-0.50); EOS % 1.5 % (0.0-3.0); HEMATOCRIT 32.3 % (36.0-47.0); HEMOGLOBIN 10.2 g/dl (12.0-16.0); IMMATURE GRANULOCYTE % 0.3 % (0-3.0); LYMPH # 0.8 10^3/uL (1.5-4.5); LYMPH % 11.5 % (24.0-44.0); MEAN CORPUSCULAR HEMOGLOBIN 30.3 pg (27.0-33.0); MEAN CORPUSCULAR HGB CONC 31.6 g/dl (32.0-36.5); MEAN CORPUSCULAR VOLUME 95.8 fl (80.0-96.0); MONO # 0.7 10^3/uL (0.0-0.8); MONO % 10.2 % (0.0-5.0); NEUTROPHILS # 5.2 10^3/uL (1.8-7.7); NEUTROPHILS % 76.4 % (36.0-66.0); PLATELET COUNT, AUTOMATED 179 10^3/uL (150-450); RED BLOOD COUNT 3.37 10^6/uL (4.00-5.40); WHITE BLOOD COUNT 6.8 10^3/uL (4.0-10.0)
[2017-09-03 10:20] LABS: ANION GAP 4 MEQ/L (8-16); BLOOD UREA NITROGEN 13 MG/DL (7-18); CALCIUM LEVEL 8.3 MG/DL (8.8-10.2); CARBON DIOXIDE LEVEL 37 MEQ/L (21-32); CHLORIDE LEVEL 102 MEQ/L (98-107); CREATININE FOR GFR 0.36 MG/DL (0.55-1.30); GLOMERULAR FILTRATION RATE > 60.0 (>32); GLUCOSE, FASTING 90 MG/DL (70-100); POTASSIUM SERUM 3.5 MEQ/L (3.5-5.1); SODIUM LEVEL 143 MEQ/L (136-145)
[2017-09-03 10:23] LABS: AMMONIA < 10 uMOL/L (<32)
[2017-09-03] MEDS: CHLORHEXIDINE ORAL RINSE 0.12%/15ML 120ML BOTTLE MT ×2 (10:53→22:17)
[2017-09-03] MEDS: NICOTINE 14 MG/24 HR TRANSDERMAL TD (10:54)
[2017-09-03] MEDS: NYSTATIN 100,000 UNITS/GM TOPICAL PWD 15 GM TOP ×2 (10:54→22:18)
[2017-09-03] MEDS: predniSONE 10 MG TAB PO (10:54)
[2017-09-03] MEDS: ONDANSETRON 4 MG ORAL DISINTEGRATING TAB (S0181) PEG (12:00)
[2017-09-03 13:03] LABS: BEDSIDE GLUCOSE 132 MG/DL (83-110)
[2017-09-03] MEDS: SCOPOLAMINE 1MG TRANSDERMAL PATCH TOP (22:17)
[2017-09-04] MEDS: IPRATROPIUM 0.5MG/ALBUTEROL 2.5MG INH SOL UD 3ML (DUONEB)(J7620) NEB ×7 (00:07→23:54)
[2017-09-04 03:52] LABS: BEDSIDE GLUCOSE 149 MG/DL (83-110)
[2017-09-04 03:53] LABS: BEDSIDE GLUCOSE 52 MG/DL (83-110)
[2017-09-04 03:53] LABS: BEDSIDE GLUCOSE 64 MG/DL (83-110)
[2017-09-04 04:00] LABS: BEDSIDE GLUCOSE 119 MG/DL (83-110)
[2017-09-04 05:41] LABS: BEDSIDE GLUCOSE 119 MG/DL (83-110)
[2017-09-04] MEDS: HumaLOG INSULIN (NovoLOG) PER UNIT SC ×3 (06:00→18:01)
[2017-09-04 06:28] LABS: BEDSIDE GLUCOSE 78 MG/DL (83-110)
[2017-09-04] MEDS: predniSONE 10 MG TAB PO (09:52)
[2017-09-04] MEDS: NICOTINE 14 MG/24 HR TRANSDERMAL TD (09:53)
[2017-09-04] MEDS: CHLORHEXIDINE ORAL RINSE 0.12%/15ML 120ML BOTTLE MT ×2 (09:53→20:54)
[2017-09-04] MEDS: NYSTATIN 100,000 UNITS/GM TOPICAL PWD 15 GM TOP ×2 (09:54→20:55)
[2017-09-04 11:51] LABS: BEDSIDE GLUCOSE 129 MG/DL (83-110)
[2017-09-04 17:59] LABS: BEDSIDE GLUCOSE 124 MG/DL (83-110)
[2017-09-04] MEDS: ALPRAZolam 0.25 MG TAB PO (20:54)
[2017-09-05] MEDS: HumaLOG INSULIN (NovoLOG) PER UNIT SC ×5 (00:06→23:53)
[2017-09-05 05:32] LABS: BEDSIDE GLUCOSE 93 MG/DL (83-110)
[2017-09-05 05:32] LABS: BEDSIDE GLUCOSE 155 MG/DL (83-110)
[2017-09-05 05:57] LABS: HEMATOCRIT 29.8 % (36.0-47.0); HEMOGLOBIN 9.4 g/dl (12.0-16.0); MEAN CORPUSCULAR HEMOGLOBIN 29.9 pg (27.0-33.0); MEAN CORPUSCULAR HGB CONC 31.5 g/dl (32.0-36.5); MEAN CORPUSCULAR VOLUME 94.9 fl (80.0-96.0); PLATELET COUNT, AUTOMATED 158 10^3/uL (150-450); RED BLOOD COUNT 3.14 10^6/uL (4.00-5.40); RED CELL DISTRIBUTION WIDTH 14.9 % (11.5-14.5)
[2017-09-05 06:12] LABS: ANION GAP 4 MEQ/L (8-16); BLOOD UREA NITROGEN 14 MG/DL (7-18); CALCIUM LEVEL 8.2 MG/DL (8.8-10.2); CARBON DIOXIDE LEVEL 35 MEQ/L (21-32); CHLORIDE LEVEL 102 MEQ/L (98-107); CREATININE FOR GFR 0.29 MG/DL (0.55-1.30); GLOMERULAR FILTRATION RATE > 60.0 (>32); GLUCOSE, FASTING 85 MG/DL (70-100); POTASSIUM SERUM 3.5 MEQ/L (3.5-5.1); SODIUM LEVEL 141 MEQ/L (136-145)
[2017-09-05] MEDS: IPRATROPIUM 0.5MG/ALBUTEROL 2.5MG INH SOL UD 3ML (DUONEB)(J7620) NEB ×5 (08:05→23:45)
[2017-09-05] MEDS: CHLORHEXIDINE ORAL RINSE 0.12%/15ML 120ML BOTTLE MT ×2 (10:16→22:22)
[2017-09-05] MEDS: predniSONE 10 MG TAB PO (10:16)
[2017-09-05] MEDS: NYSTATIN 100,000 UNITS/GM TOPICAL PWD 15 GM TOP ×2 (10:18→22:22)
[2017-09-05] MEDS: NICOTINE 14 MG/24 HR TRANSDERMAL TD (10:19)
[2017-09-05] MEDS: ALPRAZolam 0.25 MG TAB PO ×2 (11:21→19:20)
[2017-09-05 12:26] LABS: BEDSIDE GLUCOSE 111 MG/DL (83-110)
[2017-09-05] MEDS: ONDANSETRON 4 MG ORAL DISINTEGRATING TAB (S0181) PEG (12:40)
[2017-09-05 18:38] LABS: BEDSIDE GLUCOSE 148 MG/DL (83-110)
[2017-09-05 23:35] LABS: BEDSIDE GLUCOSE 153 MG/DL (83-110)
[2017-09-06] MEDS: ACETAMINOPHEN TAB 650MG DOSE (2X325MG) PO ×2 (01:23→09:39)
[2017-09-06] MEDS: IPRATROPIUM 0.5MG/ALBUTEROL 2.5MG INH SOL UD 3ML (DUONEB)(J7620) NEB ×4 (03:47→21:23)
[2017-09-06] MEDS: HumaLOG INSULIN (NovoLOG) PER UNIT SC ×3 (06:00→17:40)
[2017-09-06 06:04] LABS: BEDSIDE GLUCOSE 86 MG/DL (83-110)
[2017-09-06] MEDS: NICOTINE 14 MG/24 HR TRANSDERMAL TD (09:34)
[2017-09-06] MEDS: CHLORHEXIDINE ORAL RINSE 0.12%/15ML 120ML BOTTLE MT ×2 (09:35→22:13)
[2017-09-06] MEDS: predniSONE 10 MG TAB PO (09:35)
[2017-09-06] MEDS: NYSTATIN 100,000 UNITS/GM TOPICAL PWD 15 GM TOP ×2 (09:35→22:14)
[2017-09-06 12:16] LABS: BEDSIDE GLUCOSE 94 MG/DL (83-110)
[2017-09-06 17:22] LABS: BEDSIDE GLUCOSE 227 MG/DL (83-110)
[2017-09-06] MEDS: SCOPOLAMINE 1MG TRANSDERMAL PATCH TOP (22:13)
[2017-09-07] MEDS: HumaLOG INSULIN (NovoLOG) PER UNIT SC ×4 (00:10→18:47)
[2017-09-07 00:13] LABS: BEDSIDE GLUCOSE 132 MG/DL (83-110)
[2017-09-07] MEDS: IPRATROPIUM 0.5MG/ALBUTEROL 2.5MG INH SOL UD 3ML (DUONEB)(J7620) NEB ×7 (00:14→23:35)
[2017-09-07] MEDS: ALPRAZolam 0.25 MG TAB PO ×2 (02:42→13:20)
[2017-09-07] MEDS: predniSONE 10 MG TAB PO (09:11)
[2017-09-07] MEDS: NICOTINE 14 MG/24 HR TRANSDERMAL TD (09:11)
[2017-09-07] MEDS: NYSTATIN 100,000 UNITS/GM TOPICAL PWD 15 GM TOP ×2 (09:12→22:16)
[2017-09-07] MEDS: CHLORHEXIDINE ORAL RINSE 0.12%/15ML 120ML BOTTLE MT ×2 (09:12→22:16)
[2017-09-07 11:49] LABS: BEDSIDE GLUCOSE 84 MG/DL (83-110)
[2017-09-07 12:45] LABS: BEDSIDE GLUCOSE 202 MG/DL (83-110)
[2017-09-07 18:32] LABS: BEDSIDE GLUCOSE 177 MG/DL (83-110)
[2017-09-08 00:02] LABS: BEDSIDE GLUCOSE 182 MG/DL (83-110)
[2017-09-08] MEDS: HumaLOG INSULIN (NovoLOG) PER UNIT SC ×4 (00:47→18:00)
[2017-09-08] MEDS: IPRATROPIUM 0.5MG/ALBUTEROL 2.5MG INH SOL UD 3ML (DUONEB)(J7620) NEB ×6 (03:28→23:29)
[2017-09-08 05:55] LABS: BEDSIDE GLUCOSE 80 MG/DL (83-110)
[2017-09-08] MEDS: CHLORHEXIDINE ORAL RINSE 0.12%/15ML 120ML BOTTLE MT ×2 (09:47→20:01)
[2017-09-08] MEDS: predniSONE 10 MG TAB PO (09:48)
[2017-09-08] MEDS: NICOTINE 14 MG/24 HR TRANSDERMAL TD (09:48)
[2017-09-08] MEDS: NYSTATIN 100,000 UNITS/GM TOPICAL PWD 15 GM TOP ×2 (09:48→20:01)
[2017-09-08] MEDS: ALPRAZolam 0.25 MG TAB PO (10:46)
[2017-09-08 11:46] LABS: BEDSIDE GLUCOSE 163 MG/DL (83-110)
[2017-09-08] MEDS: ACETAMINOPHEN TAB 650MG DOSE (2X325MG) PO (14:40)
[2017-09-08 17:20] LABS: BEDSIDE GLUCOSE 209 MG/DL (83-110)
[2017-09-09 00:06] LABS: BEDSIDE GLUCOSE 150 MG/DL (83-110)
[2017-09-09] MEDS: HumaLOG INSULIN (NovoLOG) PER UNIT SC ×2 (00:15→05:57)
[2017-09-09] MEDS: IPRATROPIUM 0.5MG/ALBUTEROL 2.5MG INH SOL UD 3ML (DUONEB)(J7620) NEB ×5 (02:30→21:03)
[2017-09-09 06:19] LABS: BEDSIDE GLUCOSE 76 MG/DL (83-110)
[2017-09-09] MEDS: CHLORHEXIDINE ORAL RINSE 0.12%/15ML 120ML BOTTLE MT ×2 (10:03→21:36)
[2017-09-09] MEDS: ALPRAZolam 0.25 MG TAB PO (10:04)
[2017-09-09] MEDS: NICOTINE 14 MG/24 HR TRANSDERMAL TD (10:04)
[2017-09-09] MEDS: predniSONE 10 MG TAB PO (10:04)
[2017-09-09] MEDS: NYSTATIN 100,000 UNITS/GM TOPICAL PWD 15 GM TOP ×2 (10:04→21:36)
[2017-09-09 12:45] LABS: BEDSIDE GLUCOSE 127 MG/DL (83-110)
[2017-09-09 17:13] LABS: BEDSIDE GLUCOSE 190 MG/DL (83-110)
[2017-09-09] MEDS: SCOPOLAMINE 1MG TRANSDERMAL PATCH TOP (21:36)
[2017-09-10] MEDS: ALPRAZolam 0.25 MG TAB PO ×2 (00:16→11:47)
[2017-09-10 00:41] LABS: BEDSIDE GLUCOSE 99 MG/DL (83-110)
[2017-09-10] MEDS: IPRATROPIUM 0.5MG/ALBUTEROL 2.5MG INH SOL UD 3ML (DUONEB)(J7620) NEB ×7 (03:13→23:33)
[2017-09-10 05:40] LABS: BEDSIDE GLUCOSE 83 MG/DL (83-110)
[2017-09-10] MEDS: ACETAMINOPHEN TAB 650MG DOSE (2X325MG) PO (06:04)
[2017-09-10] MEDS: CHLORHEXIDINE ORAL RINSE 0.12%/15ML 120ML BOTTLE MT ×2 (09:58→20:52)
[2017-09-10] MEDS: predniSONE 10 MG TAB PO (09:58)
[2017-09-10] MEDS: NICOTINE 14 MG/24 HR TRANSDERMAL TD (09:59)
[2017-09-10] MEDS: NYSTATIN 100,000 UNITS/GM TOPICAL PWD 15 GM TOP ×2 (10:00→20:53)
[2017-09-10 19:56] LABS: BEDSIDE GLUCOSE 117 MG/DL (83-110)
[2017-09-11 00:30] LABS: BEDSIDE GLUCOSE 199 MG/DL (83-110)
[2017-09-11] MEDS: IPRATROPIUM 0.5MG/ALBUTEROL 2.5MG INH SOL UD 3ML (DUONEB)(J7620) NEB ×5 (03:33→20:37)
[2017-09-11] MEDS: ALBUTEROL SULFATE 2.5 MG/0.5 ML INH NEB SOLN NEB (05:23)
[2017-09-11] MEDS: ALPRAZolam 0.25 MG TAB PO (05:39)
[2017-09-11 06:56] LABS: BEDSIDE GLUCOSE 77 MG/DL (83-110)
[2017-09-11] MEDS: predniSONE 10 MG TAB PO (09:25)
[2017-09-11] MEDS: NICOTINE 14 MG/24 HR TRANSDERMAL TD (09:26)
[2017-09-11] MEDS: CHLORHEXIDINE ORAL RINSE 0.12%/15ML 120ML BOTTLE MT ×2 (09:26→23:31)
[2017-09-11] MEDS: NYSTATIN 100,000 UNITS/GM TOPICAL PWD 15 GM TOP ×2 (11:49→22:53)
[2017-09-11 12:03] LABS: BEDSIDE GLUCOSE 155 MG/DL (83-110)
[2017-09-12] MEDS: IPRATROPIUM 0.5MG/ALBUTEROL 2.5MG INH SOL UD 3ML (DUONEB)(J7620) NEB ×6 (01:02→21:28)
[2017-09-12 07:02] LABS: HEMATOCRIT 31.2 % (36.0-47.0); HEMOGLOBIN 9.9 g/dl (12.0-16.0); MEAN CORPUSCULAR HEMOGLOBIN 30.5 pg (27.0-33.0); MEAN CORPUSCULAR HGB CONC 31.7 g/dl (32.0-36.5); PLATELET COUNT, AUTOMATED 168 10^3/uL (150-450); RED BLOOD COUNT 3.25 10^6/uL (4.00-5.40); RED CELL DISTRIBUTION WIDTH 15.6 % (11.5-14.5); WHITE BLOOD COUNT 5.7 10^3/uL (4.0-10.0)
[2017-09-12 07:31] LABS: ANION GAP 5 MEQ/L (8-16); BLOOD UREA NITROGEN 18 MG/DL (7-18); CALCIUM LEVEL 8.7 MG/DL (8.8-10.2); CARBON DIOXIDE LEVEL 34 MEQ/L (21-32); CHLORIDE LEVEL 101 MEQ/L (98-107); CREATININE FOR GFR 0.38 MG/DL (0.55-1.30); GLOMERULAR FILTRATION RATE > 60.0 (>32); GLUCOSE, FASTING 84 MG/DL (70-100); POTASSIUM SERUM 3.7 MEQ/L (3.5-5.1); SODIUM LEVEL 140 MEQ/L (136-145)
[2017-09-12] MEDS: predniSONE 10 MG TAB PO (10:22)
[2017-09-12] MEDS: ALPRAZolam 0.25 MG TAB PO ×2 (10:22→17:50)
[2017-09-12] MEDS: NICOTINE 14 MG/24 HR TRANSDERMAL TD (10:23)
[2017-09-12] MEDS: CHLORHEXIDINE ORAL RINSE 0.12%/15ML 120ML BOTTLE MT ×2 (10:23→21:11)
[2017-09-12] MEDS: NYSTATIN 100,000 UNITS/GM TOPICAL PWD 15 GM TOP ×2 (10:24→21:11)
[2017-09-12 12:10] LABS: BEDSIDE GLUCOSE 195 MG/DL (83-110)
[2017-09-12 12:11] LABS: BEDSIDE GLUCOSE 167 MG/DL (83-110)
[2017-09-12 12:11] LABS: BEDSIDE GLUCOSE 127 MG/DL (83-110)
[2017-09-12 16:53] LABS: BEDSIDE GLUCOSE 265 MG/DL (83-110)
[2017-09-12] MEDS: ONDANSETRON 4 MG ORAL DISINTEGRATING TAB (S0181) PEG (17:22)
[2017-09-12 17:34] LABS: BEDSIDE GLUCOSE 158 MG/DL (83-110)
[2017-09-12 17:34] LABS: BEDSIDE GLUCOSE 95 MG/DL (83-110)
[2017-09-12] MEDS ORDERED: PILL CUTTER/CRUSHER XX (18:15)
[2017-09-12] MEDS: ACETAMINOPHEN TAB 650MG DOSE (2X325MG) PO (21:10)
[2017-09-12] MEDS: SCOPOLAMINE 1MG TRANSDERMAL PATCH TOP (23:03)
[2017-09-13] MEDS: ALPRAZolam 0.25 MG TAB PO ×2 (00:18→22:22)
[2017-09-13] MEDS: IPRATROPIUM 0.5MG/ALBUTEROL 2.5MG INH SOL UD 3ML (DUONEB)(J7620) NEB ×6 (02:21→21:14)
[2017-09-13] MEDS: predniSONE 10 MG TAB PO (09:07)
[2017-09-13] MEDS: NICOTINE 14 MG/24 HR TRANSDERMAL TD (09:07)
[2017-09-13] MEDS: CHLORHEXIDINE ORAL RINSE 0.12%/15ML 120ML BOTTLE MT ×2 (09:08→20:24)
[2017-09-13] MEDS: NYSTATIN 100,000 UNITS/GM TOPICAL PWD 15 GM TOP ×2 (09:09→20:24)
[2017-09-13] MEDS: ACETAMINOPHEN TAB 650MG DOSE (2X325MG) PO ×2 (15:06→22:22)
[2017-09-13 16:49] LABS: BEDSIDE GLUCOSE 131 MG/DL (83-110)
[2017-09-13 16:49] LABS: BEDSIDE GLUCOSE 204 MG/DL (83-110)
[2017-09-13 16:49] LABS: BEDSIDE GLUCOSE 77 MG/DL (83-110)
[2017-09-13 20:57] LABS: BEDSIDE GLUCOSE 193 MG/DL (83-110)
[2017-09-14] MEDS: IPRATROPIUM 0.5MG/ALBUTEROL 2.5MG INH SOL UD 3ML (DUONEB)(J7620) NEB ×6 (02:35→21:25)
[2017-09-14] MEDS: ALBUTEROL SULFATE 2.5 MG/0.5 ML INH NEB SOLN NEB (02:58)
[2017-09-14] MEDS: DOCUSATE SOD LIQ 100MG/10ML UDC GT (06:08)
[2017-09-14] MEDS: ACETAMINOPHEN TAB 650MG DOSE (2X325MG) PO ×4 (06:30→22:11)
[2017-09-14] MEDS: NYSTATIN 100,000 UNITS/GM TOPICAL PWD 15 GM TOP ×2 (08:57→22:12)
[2017-09-14] MEDS: predniSONE 10 MG TAB PO (08:57)
[2017-09-14] MEDS: NICOTINE 14 MG/24 HR TRANSDERMAL TD (08:57)
[2017-09-14] MEDS: CHLORHEXIDINE ORAL RINSE 0.12%/15ML 120ML BOTTLE MT ×2 (08:58→22:11)
[2017-09-14] MEDS: ALPRAZolam 0.25 MG TAB PO (14:18)
[2017-09-14 17:32] LABS: BEDSIDE GLUCOSE 150 MG/DL (83-110)
[2017-09-14 19:59] LABS: BEDSIDE GLUCOSE 217 MG/DL (83-110)
[2017-09-14 19:59] LABS: BEDSIDE GLUCOSE 126 MG/DL (83-110)
[2017-09-14 19:59] LABS: BEDSIDE GLUCOSE 88 MG/DL (83-110)
[2017-09-15 00:02] LABS: BEDSIDE GLUCOSE 168 MG/DL (83-110)
[2017-09-15] MEDS: IPRATROPIUM 0.5MG/ALBUTEROL 2.5MG INH SOL UD 3ML (DUONEB)(J7620) NEB ×7 (00:27→23:42)
[2017-09-15] MEDS: NICOTINE 14 MG/24 HR TRANSDERMAL TD (09:01)
[2017-09-15] MEDS: CHLORHEXIDINE ORAL RINSE 0.12%/15ML 120ML BOTTLE MT ×2 (09:02→20:30)
[2017-09-15] MEDS: NYSTATIN 100,000 UNITS/GM TOPICAL PWD 15 GM TOP ×2 (09:02→20:30)
[2017-09-15] MEDS: predniSONE 10 MG TAB PO (09:03)
[2017-09-15] MEDS: ACETAMINOPHEN TAB 650MG DOSE (2X325MG) PO ×2 (09:03→20:30)
[2017-09-15] MEDS: ALPRAZolam 0.25 MG TAB PO (09:03)
[2017-09-15] MEDS: MOM 30ML SUSPENSION UDC PEG (10:15)
[2017-09-15 12:04] LABS: BEDSIDE GLUCOSE 168 MG/DL (83-110)
[2017-09-15] MEDS: CitaloPRAM (CeleXA) 10 MG TABLET PO (16:03)
[2017-09-15 17:08] LABS: BEDSIDE GLUCOSE 215 MG/DL (83-110)
[2017-09-15 17:40] LABS: BEDSIDE GLUCOSE 96 MG/DL (83-110)
[2017-09-15] MEDS: SCOPOLAMINE 1MG TRANSDERMAL PATCH TOP (20:46)
[2017-09-15 23:56] LABS: BEDSIDE GLUCOSE 156 MG/DL (83-110)
[2017-09-16] MEDS: IPRATROPIUM 0.5MG/ALBUTEROL 2.5MG INH SOL UD 3ML (DUONEB)(J7620) NEB ×5 (03:26→23:21)
[2017-09-16 06:28] LABS: BEDSIDE GLUCOSE 104 MG/DL (83-110)
[2017-09-16] MEDS ORDERED: CitaloPRAM (CeleXA) 10 MG TABLET PO (09:00)
[2017-09-16] MEDS: CHLORHEXIDINE ORAL RINSE 0.12%/15ML 120ML BOTTLE MT ×2 (09:12→22:02)
[2017-09-16] MEDS: CitaloPRAM (CeleXA) 10 MG TABLET PEG (09:13)
[2017-09-16] MEDS: NYSTATIN 100,000 UNITS/GM TOPICAL PWD 15 GM TOP ×2 (09:13→22:02)
[2017-09-16] MEDS: ACETAMINOPHEN TAB 650MG DOSE (2X325MG) PO (09:14)
[2017-09-16] MEDS: predniSONE 10 MG TAB PO (09:14)
[2017-09-16] MEDS: NICOTINE 14 MG/24 HR TRANSDERMAL TD (09:17)
[2017-09-16] MEDS: ALBUTEROL SULFATE 2.5 MG/0.5 ML INH NEB SOLN NEB (11:08)
[2017-09-16 12:14] LABS: BEDSIDE GLUCOSE 204 MG/DL (83-110)
[2017-09-16] MEDS: ONDANSETRON 4 MG ORAL DISINTEGRATING TAB (S0181) SL (14:28)
[2017-09-16] MEDS: ALPRAZolam 0.25 MG TAB PO (15:32)
[2017-09-16 19:35] LABS: BEDSIDE GLUCOSE 108 MG/DL (83-110)
[2017-09-17 00:21] LABS: BEDSIDE GLUCOSE 142 MG/DL (83-110)
[2017-09-17] MEDS: IPRATROPIUM 0.5MG/ALBUTEROL 2.5MG INH SOL UD 3ML (DUONEB)(J7620) NEB ×6 (02:11→23:39)
[2017-09-17] MEDS: predniSONE 10 MG TAB PO (10:01)
[2017-09-17] MEDS: CitaloPRAM (CeleXA) 10 MG TABLET PEG (10:01)
[2017-09-17] MEDS: NICOTINE 14 MG/24 HR TRANSDERMAL TD (10:02)
[2017-09-17] MEDS: NYSTATIN 100,000 UNITS/GM TOPICAL PWD 15 GM TOP ×2 (10:03→20:05)
[2017-09-17] MEDS: CHLORHEXIDINE ORAL RINSE 0.12%/15ML 120ML BOTTLE MT ×2 (10:03→20:05)
[2017-09-17 15:12] LABS: BEDSIDE GLUCOSE 218 MG/DL (83-110)
[2017-09-17] MEDS: ACETAMINOPHEN TAB 650MG DOSE (2X325MG) PO (17:07)
[2017-09-17 20:04] LABS: BEDSIDE GLUCOSE 179 MG/DL (83-110)
[2017-09-17 23:50] LABS: BEDSIDE GLUCOSE 208 MG/DL (83-110)
[2017-09-18] MEDS: ACETAMINOPHEN TAB 650MG DOSE (2X325MG) PO ×2 (00:59→18:24)
[2017-09-18] MEDS: IPRATROPIUM 0.5MG/ALBUTEROL 2.5MG INH SOL UD 3ML (DUONEB)(J7620) NEB ×6 (04:47→22:46)
[2017-09-18 06:15] LABS: BEDSIDE GLUCOSE 92 MG/DL (83-110)
[2017-09-18] MEDS: predniSONE 10 MG TAB PO (09:06)
[2017-09-18] MEDS: CitaloPRAM (CeleXA) 10 MG TABLET PEG (09:07)
[2017-09-18] MEDS: NICOTINE 14 MG/24 HR TRANSDERMAL TD (09:07)
[2017-09-18] MEDS: NYSTATIN 100,000 UNITS/GM TOPICAL PWD 15 GM TOP ×2 (09:08→22:11)
[2017-09-18] MEDS: CHLORHEXIDINE ORAL RINSE 0.12%/15ML 120ML BOTTLE MT ×2 (11:22→22:12)
[2017-09-18 11:52] LABS: BEDSIDE GLUCOSE 194 MG/DL (83-110)
[2017-09-18 18:12] LABS: BEDSIDE GLUCOSE 121 MG/DL (83-110)
[2017-09-18] MEDS: ONDANSETRON 4 MG ORAL DISINTEGRATING TAB (S0181) SL (19:43)
[2017-09-18] MEDS: SCOPOLAMINE 1MG TRANSDERMAL PATCH TOP (22:11)
[2017-09-18 23:44] LABS: BEDSIDE GLUCOSE 178 MG/DL (83-110)
[2017-09-19] MEDS: IPRATROPIUM 0.5MG/ALBUTEROL 2.5MG INH SOL UD 3ML (DUONEB)(J7620) NEB ×3 (03:07→11:42)
[2017-09-19 05:58] LABS: BEDSIDE GLUCOSE 100 MG/DL (83-110)
[2017-09-19 06:15] LABS: HEMATOCRIT 32.1 % (36.0-47.0); MEAN CORPUSCULAR HEMOGLOBIN 29.6 pg (27.0-33.0); MEAN CORPUSCULAR HGB CONC 31.2 g/dl (32.0-36.5); PLATELET COUNT, AUTOMATED 269 10^3/uL (150-450); RED BLOOD COUNT 3.38 10^6/uL (4.00-5.40); RED CELL DISTRIBUTION WIDTH 15.7 % (11.5-14.5); WHITE BLOOD COUNT 10.2 10^3/uL (4.0-10.0)
[2017-09-19 06:30] LABS: ANION GAP 5 MEQ/L (8-16); BLOOD UREA NITROGEN 16 MG/DL (7-18); CALCIUM LEVEL 8.7 MG/DL (8.8-10.2); CARBON DIOXIDE LEVEL 33 MEQ/L (21-32); CHLORIDE LEVEL 100 MEQ/L (98-107); CREATININE FOR GFR 0.32 MG/DL (0.55-1.30); GLOMERULAR FILTRATION RATE > 60.0 (>32); GLUCOSE, FASTING 94 MG/DL (70-100); SODIUM LEVEL 138 MEQ/L (136-145)
[2017-09-19] MEDS: CHLORHEXIDINE ORAL RINSE 0.12%/15ML 120ML BOTTLE MT (08:58)
[2017-09-19] MEDS: NYSTATIN 100,000 UNITS/GM TOPICAL PWD 15 GM TOP (08:58)
[2017-09-19] MEDS: CitaloPRAM (CeleXA) 10 MG TABLET PEG (08:59)
[2017-09-19] MEDS: predniSONE 10 MG TAB PO (08:59)
[2017-09-19] MEDS: NICOTINE 14 MG/24 HR TRANSDERMAL TD (08:59)
[2017-09-19] MEDS: INFLUENZA VIRUS VACCINE HIGH DOSE 0.5 ML SYRINGE (90662) IM (10:24)
[2017-09-19 12:07] LABS: BEDSIDE GLUCOSE 243 MG/DL (83-110)
[2017-09-19] MEDS: ACETAMINOPHEN TAB 650MG DOSE (2X325MG) PO (13:16)
== END 2017-09-19 14:44 | disposition home health service (06) | DRG 4 ==
LOC: M MSPAV 08-21 15:37 → M ED 05:43 → M ED INP 07:36 → M ICU 09:04
PROC: 0B110F4 Bypass Trachea to Cutaneous with Tracheostomy Device, Open Approach (ICD-10-PCS; principal; 2017-08-17 12:09)
PROC: 0CBS8ZX Excision of Larynx, Via Natural or Artificial Opening Endoscopic, Diagnostic (ICD-10-PCS; 2017-08-17 12:09)
PROC: 0BH17EZ Insertion of Endotracheal Airway into Trachea, Via Natural or Artificial Opening (ICD-10-PCS; 2017-08-17 12:09)
PROC: 5A1945Z Respiratory Ventilation, 24-96 Consecutive Hours (ICD-10-PCS; 2017-08-17 13:12)
DX: J96.22 Acute and chronic respiratory failure with hypercapnia (principal); G93.41 Metabolic encephalopathy; J69.0 Pneumonitis due to inhalation of food and vomit; E87.2 Acidosis; R64 Cachexia; E46 Unspecified protein-calorie malnutrition; Z68.1 Body mass index [BMI] 19.9 or less, adult; J98.11 Atelectasis; C78.00 Secondary malignant neoplasm of unspecified lung; C32.1 Malignant neoplasm of supraglottis; J47.9 Bronchiectasis, uncomplicated; I10 Essential (primary) hypertension; F17.210 Nicotine dependence, cigarettes, uncomplicated; Z79.899 Other long term (current) drug therapy

== ENCOUNTER 2017-09-27 12:52 | Inpatient (IN) | payer MEDICARE ==
[2017-09-27 13:45] LABS: ABG pH (ARTERIAL) 7.456 UNITS (7.350-7.450)
[2017-09-27 13:47] LABS: ABG HCO3 29.4 MEQ/L (22.0-26.0); ABG O2 SATURATION 83.5 % (95.0-99.0); ABG PARTIAL PRESSURE CO2 42.7 mmHg (35.0-45.0); ABG STANDARD HCO3 28.7 MEQ/L (22.0-26.0); ABG TOTAL CO2 30.7 MEQ/L (23.0-31.0)
[2017-09-27 13:48] LABS: ABG PARTIAL PRESSURE O2 47.9 mmHg (75.0-100.0)
[2017-09-27 14:01] LABS: BASO % 0.1 % (0.0-1.0); HEMATOCRIT 35.8 % (36.0-47.0); HEMOGLOBIN 11.4 g/dl (12.0-16.0); IMMATURE GRANULOCYTE % 0.9 % (0-3.0); LYMPH % 0.7 % (24.0-44.0); MEAN CORPUSCULAR HGB CONC 31.8 g/dl (32.0-36.5); MEAN CORPUSCULAR VOLUME 97.3 fl (80.0-96.0); MONO # 0.8 10^3/uL (0.0-0.8); MONO % 4.3 % (0.0-5.0); NEUTROPHILS # 17.2 10^3/uL (1.8-7.7); PLATELET COUNT, AUTOMATED 358 10^3/uL (150-450); RED BLOOD COUNT 3.68 10^6/uL (4.00-5.40); RED CELL DISTRIBUTION WIDTH 15.6 % (11.5-14.5); WHITE BLOOD COUNT 18.3 10^3/uL (4.0-10.0)
[2017-09-27] MEDS: NS 1,000 ML IV ×2 (14:05→16:57)
[2017-09-27 14:12] LABS: KETONE, URINE AUTO RFX NEGATIVE (NEGATIVE); LEUKOCYTE ESTERASE UR AUTO RFX TRACE (NEGATIVE); NITRITE, URINE AUTO RFX POSITIVE (NEGATIVE); RBC, URINE AUTO RFX 1 /HPF (0-3); SPECIFIC GRAVITY UR AUTO RFX 1.014 (1.002-1.035); SQUAM EPITHELIAL CELL UR AURFX 9 /HPF (0-6); WBC, URINE AUTO RFX 15 /HPF (0-3)
[2017-09-27 14:28] LABS: ACETAMINOPHEN LEVEL 2.7 UG/ML (10.0-30.0); ALBUMIN 2.8 GM/DL (3.2-5.2); ALBUMIN/GLOBULIN RATIO 0.76 (1.00-1.93); ALKALINE PHOSPHATASE 56 U/L (45-117); ALT/SGPT 32 U/L (12-78); ANION GAP 9 MEQ/L (8-16); AST/SGOT 23 U/L (7-37); BILIRUBIN,DIRECT 0.1 MG/DL (0.0-0.2); BILIRUBIN,TOTAL 0.4 MG/DL (0.2-1.0); BLOOD UREA NITROGEN 26 MG/DL (7-18); CALCIUM LEVEL 8.9 MG/DL (8.8-10.2); CARBON DIOXIDE LEVEL 31 MEQ/L (21-32); CHLORIDE LEVEL 99 MEQ/L (98-107); CPK CREATINE PHOSPHOKINASE 58 U/L (26-192); CREATININE FOR GFR 0.72 MG/DL (0.55-1.30); GLOMERULAR FILTRATION RATE > 60.0 (>32); GLUCOSE, FASTING 161 MG/DL (70-100); POTASSIUM SERUM 4.1 MEQ/L (3.5-5.1); SALICYLATE LEVEL < 1.7 MG/DL (5.0-30.0); SODIUM LEVEL 139 MEQ/L (136-145); TOTAL PROTEIN 6.5 GM/DL (6.4-8.2); TROPONIN I 0.31 NG/ML (< 0.10)
[2017-09-27 14:34] LABS: CK-MB VALUE MASS 9.6 NG/ML (0.0-3.6); MB/CK RELATIVE INDEX 16.55 (< OR =4); THYROID STIMULATING HORMONE 0.657 uIU/ML (0.358-3.740)
[2017-09-27 14:40] LABS: LYMPH # 0.1 10^3/uL (1.5-4.5); POSITIVE DIFF POS FLAG
[2017-09-27 14:51] LABS: LACTIC ACID SEPSIS PROTOCOL 3.7 MMOL/L (0.4-2.0)
[2017-09-27] MEDS ORDERED: ISOVUE-370 76% 100ML VIAL (Q9967) As Ordered (15:31)
[2017-09-27] MEDS ORDERED: CEFEPIME HCL 2 GM in D5W MINI-BAG PLUS 50 ML IV (17:30)
[2017-09-27] MEDS ORDERED: VANCOMYCIN HCL 1,000 MG, VIAL MATE ADAPTER 1 EACH in D5W 250 ML IV (17:30)
[2017-09-27] MEDS ORDERED: IPRATROPIUM 0.5MG/ALBUTEROL 2.5MG INH SOL UD 3ML (DUONEB)(J7620) NEB (17:45)
[2017-09-27] MEDS ORDERED: NYSTATIN 100,000 UNITS/GM TOPICAL PWD 15 GM TOP (17:45)
[2017-09-27] MEDS ORDERED: ONDANSETRON 4 MG ORAL DISINTEGRATING TAB (S0181) PEG (17:45)
[2017-09-27] MEDS ORDERED: NORCO, ANEXSIA 5/325MG TABLET (HYDROcodone/ACETAMINOPHEN) PO (18:00)
[2017-09-27] MEDS: AZITHROMYCIN INJ 500 MG, VIAL MATE ADAPTER 1 EACH in D5W 250 ML IV (18:14)
[2017-09-27] MEDS: ENOXAPARIN 60 MG/0.6 ML SYR (J1650) SC (18:27)
[2017-09-27] MEDS: NORCO, ANEXSIA 5/325MG TABLET (HYDROcodone/ACETAMINOPHEN) PEG (18:48)
[2017-09-27] MEDS: CEFEPIME HCL 2 GM in D5W MINI-BAG PLUS 50 ML IV (20:20)
[2017-09-27] MEDS: IPRATROPIUM 0.5MG/ALBUTEROL 2.5MG INH SOL UD 3ML (DUONEB)(J7620) NEB (20:26)
[2017-09-27] MEDS ORDERED: NICOTINE 14 MG/24 HR TRANSDERMAL TD (21:00)
[2017-09-27 21:10] LABS: C REACTIVE PROTEIN QUANTITATIV 2.99 MG/DL (0.00-0.30); CK-MB VALUE MASS 6.2 NG/ML (0.0-3.6); CPK CREATINE PHOSPHOKINASE 41 U/L (26-192); MB/CK RELATIVE INDEX 15.12 (< OR =4); TROPONIN I 0.23 NG/ML (< 0.10)
[2017-09-27] MEDS: CHLORHEXIDINE ORAL RINSE 0.12%/15ML 120ML BOTTLE SSP (22:11)
[2017-09-27] MEDS: NICOTINE 14 MG/24 HR TRANSDERMAL TD (22:11)
[2017-09-27] MEDS: VANCOMYCIN HCL 750 MG, VIAL MATE ADAPTER 1 EACH in D5W 250 ML IV (22:11)
[2017-09-27] MEDS ORDERED: PILL CUTTER/CRUSHER XX (23:45)
[2017-09-28] MEDS: IPRATROPIUM 0.5MG/ALBUTEROL 2.5MG INH SOL UD 3ML (DUONEB)(J7620) NEB ×4 (01:25→20:39)
[2017-09-28 02:50] LABS: CK-MB VALUE MASS 4.4 NG/ML (0.0-3.6); CPK CREATINE PHOSPHOKINASE 34 U/L (26-192); MB/CK RELATIVE INDEX 12.94 (< OR =4); TROPONIN I 0.18 NG/ML (< 0.10)
[2017-09-28 05:45] LABS: BASO % 0.2 % (0.0-1.0); EOS % 0.1 % (0.0-3.0); HEMATOCRIT 33.9 % (36.0-47.0); HEMOGLOBIN 10.8 g/dl (12.0-16.0); IMMATURE GRANULOCYTE % 0.8 % (0-3.0); LYMPH # 0.8 10^3/uL (1.5-4.5); LYMPH % 6.3 % (24.0-44.0); MEAN CORPUSCULAR HEMOGLOBIN 30.4 pg (27.0-33.0); MEAN CORPUSCULAR HGB CONC 31.9 g/dl (32.0-36.5); MEAN CORPUSCULAR VOLUME 95.5 fl (80.0-96.0); MONO # 0.9 10^3/uL (0.0-0.8); MONO % 7.1 % (0.0-5.0); NEUTROPHILS # 10.7 10^3/uL (1.8-7.7); NEUTROPHILS % 85.5 % (36.0-66.0); PLATELET COUNT, AUTOMATED 340 10^3/uL (150-450); RED BLOOD COUNT 3.55 10^6/uL (4.00-5.40); RED CELL DISTRIBUTION WIDTH 15.8 % (11.5-14.5); WHITE BLOOD COUNT 12.5 10^3/uL (4.0-10.0)
[2017-09-28] MEDS: ENOXAPARIN 60 MG/0.6 ML SYR (J1650) SC ×2 (05:46→18:02)
[2017-09-28 06:05] LABS: ANION GAP 6 MEQ/L (8-16); BLOOD UREA NITROGEN 21 MG/DL (7-18); CALCIUM LEVEL 8.5 MG/DL (8.8-10.2); CARBON DIOXIDE LEVEL 30 MEQ/L (21-32); CHLORIDE LEVEL 102 MEQ/L (98-107); CREATININE FOR GFR 0.42 MG/DL (0.55-1.30); GLOMERULAR FILTRATION RATE > 60.0 (>32); GLUCOSE, FASTING 102 MG/DL (70-100); SODIUM LEVEL 138 MEQ/L (136-145)
[2017-09-28] MEDS: predniSONE 10 MG TAB PEG (10:17)
[2017-09-28] MEDS: CEFEPIME HCL 2 GM in D5W MINI-BAG PLUS 50 ML IV (10:17)
[2017-09-28] MEDS: CitaloPRAM (CeleXA) 10 MG TABLET PEG (10:17)
[2017-09-28] MEDS: NS 1,000 ML IV (10:18)
[2017-09-28] MEDS: CHLORHEXIDINE ORAL RINSE 0.12%/15ML 120ML BOTTLE SSP ×2 (10:18→21:00)
[2017-09-28] MEDS: VANCOMYCIN HCL 750 MG in D5W 250 ML IV (11:14)
[2017-09-28] MEDS ORDERED: SLF 3 ML SYR IV (17:15)
[2017-09-28] MEDS ORDERED: AZITHROMYCIN INJ 500 MG, VIAL MATE ADAPTER 1 EACH in D5W 250 ML IV (18:00)
[2017-09-28] MEDS: NICOTINE 14 MG/24 HR TRANSDERMAL TD (21:16)
[2017-09-28] MEDS: SLF 3 ML SYR IV (21:20)
[2017-09-29] MEDS: IPRATROPIUM 0.5MG/ALBUTEROL 2.5MG INH SOL UD 3ML (DUONEB)(J7620) NEB ×4 (02:40→20:49)
[2017-09-29 05:44] LABS: BASO % 0.2 % (0.0-1.0); EOS % 0.2 % (0.0-3.0); HEMATOCRIT 33.4 % (36.0-47.0); HEMOGLOBIN 10.9 g/dl (12.0-16.0); IMMATURE GRANULOCYTE % 0.8 % (0-3.0); LYMPH # 0.7 10^3/uL (1.5-4.5); LYMPH % 8.2 % (24.0-44.0); MEAN CORPUSCULAR HEMOGLOBIN 30.8 pg (27.0-33.0); MEAN CORPUSCULAR HGB CONC 32.6 g/dl (32.0-36.5); MEAN CORPUSCULAR VOLUME 94.4 fl (80.0-96.0); MONO # 0.6 10^3/uL (0.0-0.8); MONO % 6.9 % (0.0-5.0); NEUTROPHILS # 7.6 10^3/uL (1.8-7.7); NEUTROPHILS % 83.7 % (36.0-66.0); PLATELET COUNT, AUTOMATED 343 10^3/uL (150-450); RED BLOOD COUNT 3.54 10^6/uL (4.00-5.40); RED CELL DISTRIBUTION WIDTH 15.7 % (11.5-14.5); WHITE BLOOD COUNT 9.1 10^3/uL (4.0-10.0)
[2017-09-29 05:58] LABS: ANION GAP 6 MEQ/L (8-16); BLOOD UREA NITROGEN 15 MG/DL (7-18); CALCIUM LEVEL 8.4 MG/DL (8.8-10.2); CARBON DIOXIDE LEVEL 30 MEQ/L (21-32); CHLORIDE LEVEL 103 MEQ/L (98-107); CREATININE FOR GFR 0.39 MG/DL (0.55-1.30); GLOMERULAR FILTRATION RATE > 60.0 (>32); GLUCOSE, FASTING 96 MG/DL (70-100); MAGNESIUM LEVEL 1.8 MG/DL (1.8-2.4); POTASSIUM SERUM 3.8 MEQ/L (3.5-5.1); SODIUM LEVEL 139 MEQ/L (136-145)
[2017-09-29] MEDS: ENOXAPARIN 60 MG/0.6 ML SYR (J1650) SC ×2 (06:00→18:40)
[2017-09-29] MEDS: SLF 3 ML SYR IV ×3 (06:00→21:37)
[2017-09-29] MEDS: CitaloPRAM (CeleXA) 10 MG TABLET PEG (09:42)
[2017-09-29] MEDS: CHLORHEXIDINE ORAL RINSE 0.12%/15ML 120ML BOTTLE SSP ×2 (09:42→21:36)
[2017-09-29] MEDS: predniSONE 10 MG TAB PEG (09:42)
[2017-09-29] MEDS: NORCO, ANEXSIA 5/325MG TABLET (HYDROcodone/ACETAMINOPHEN) PEG (14:17)
[2017-09-29] MEDS: NICOTINE 14 MG/24 HR TRANSDERMAL TD (21:36)
[2017-09-30] MEDS: IPRATROPIUM 0.5MG/ALBUTEROL 2.5MG INH SOL UD 3ML (DUONEB)(J7620) NEB ×4 (02:00→19:22)
[2017-09-30] MEDS: ENOXAPARIN 60 MG/0.6 ML SYR (J1650) SC ×2 (06:00→17:50)
[2017-09-30] MEDS: SLF 3 ML SYR IV ×3 (06:00→21:30)
[2017-09-30 06:23] LABS: BASO % 0.2 % (0.0-1.0); EOS % 0.2 % (0.0-3.0); HEMATOCRIT 33.6 % (36.0-47.0); HEMOGLOBIN 10.7 g/dl (12.0-16.0); IMMATURE GRANULOCYTE % 0.7 % (0-3.0); LYMPH # 0.7 10^3/uL (1.5-4.5); LYMPH % 6.2 % (24.0-44.0); MEAN CORPUSCULAR HEMOGLOBIN 30.2 pg (27.0-33.0); MEAN CORPUSCULAR HGB CONC 31.8 g/dl (32.0-36.5); MEAN CORPUSCULAR VOLUME 94.9 fl (80.0-96.0); MONO # 0.8 10^3/uL (0.0-0.8); MONO % 6.7 % (0.0-5.0); NEUTROPHILS # 9.8 10^3/uL (1.8-7.7); PLATELET COUNT, AUTOMATED 351 10^3/uL (150-450); RED BLOOD COUNT 3.54 10^6/uL (4.00-5.40); RED CELL DISTRIBUTION WIDTH 15.8 % (11.5-14.5); WHITE BLOOD COUNT 11.4 10^3/uL (4.0-10.0)
[2017-09-30 06:38] LABS: ANION GAP 5 MEQ/L (8-16); BLOOD UREA NITROGEN 14 MG/DL (7-18); CALCIUM LEVEL 8.5 MG/DL (8.8-10.2); CARBON DIOXIDE LEVEL 33 MEQ/L (21-32); CHLORIDE LEVEL 100 MEQ/L (98-107); CREATININE FOR GFR 0.41 MG/DL (0.55-1.30); GLOMERULAR FILTRATION RATE > 60.0 (>32); GLUCOSE, FASTING 85 MG/DL (70-100); POTASSIUM SERUM 3.9 MEQ/L (3.5-5.1); SODIUM LEVEL 138 MEQ/L (136-145)
[2017-09-30] MEDS: CitaloPRAM (CeleXA) 10 MG TABLET PEG (10:43)
[2017-09-30] MEDS: NORCO, ANEXSIA 5/325MG TABLET (HYDROcodone/ACETAMINOPHEN) PEG (10:43)
[2017-09-30] MEDS: predniSONE 10 MG TAB PEG (10:43)
[2017-09-30] MEDS: CHLORHEXIDINE ORAL RINSE 0.12%/15ML 120ML BOTTLE SSP ×2 (10:44→21:25)
[2017-09-30] MEDS: guaiFENesin 200 MG TAB PO ×2 (12:11→17:51)
[2017-09-30] MEDS: ALPRAZolam 0.25 MG TAB PO (17:50)
[2017-09-30] MEDS: NICOTINE 14 MG/24 HR TRANSDERMAL TD (21:23)
[2017-10-01] MEDS ORDERED: guaiFENesin 200 MG TAB PEG (00:34)
[2017-10-01] MEDS: guaiFENesin 200 MG TAB PEG ×2 (00:43→05:57)
[2017-10-01] MEDS: IPRATROPIUM 0.5MG/ALBUTEROL 2.5MG INH SOL UD 3ML (DUONEB)(J7620) NEB ×2 (02:09→07:12)
[2017-10-01 04:07] LABS: BASO % 0.1 % (0.0-1.0); EOS % 0.4 % (0.0-3.0); HEMATOCRIT 32.7 % (36.0-47.0); HEMOGLOBIN 10.6 g/dl (12.0-16.0); IMMATURE GRANULOCYTE % 0.7 % (0-3.0); LYMPH # 0.6 10^3/uL (1.5-4.5); MEAN CORPUSCULAR HEMOGLOBIN 30.4 pg (27.0-33.0); MEAN CORPUSCULAR HGB CONC 32.4 g/dl (32.0-36.5); MEAN CORPUSCULAR VOLUME 93.7 fl (80.0-96.0); MONO # 0.6 10^3/uL (0.0-0.8); MONO % 8.7 % (0.0-5.0); NEUTROPHILS # 5.8 10^3/uL (1.8-7.7); NEUTROPHILS % 81.1 % (36.0-66.0); PLATELET COUNT, AUTOMATED 320 10^3/uL (150-450); RED BLOOD COUNT 3.49 10^6/uL (4.00-5.40); RED CELL DISTRIBUTION WIDTH 15.8 % (11.5-14.5); WHITE BLOOD COUNT 7.1 10^3/uL (4.0-10.0)
[2017-10-01 04:26] LABS: ANION GAP 6 MEQ/L (8-16); BLOOD UREA NITROGEN 14 MG/DL (7-18); CALCIUM LEVEL 8.8 MG/DL (8.8-10.2); CARBON DIOXIDE LEVEL 32 MEQ/L (21-32); CHLORIDE LEVEL 100 MEQ/L (98-107); CREATININE FOR GFR 0.36 MG/DL (0.55-1.30); GLOMERULAR FILTRATION RATE > 60.0 (>32); GLUCOSE, FASTING 94 MG/DL (70-100); MAGNESIUM LEVEL 1.9 MG/DL (1.8-2.4); POTASSIUM SERUM 3.7 MEQ/L (3.5-5.1); SODIUM LEVEL 138 MEQ/L (136-145)
[2017-10-01] MEDS: ENOXAPARIN 60 MG/0.6 ML SYR (J1650) SC (05:58)
[2017-10-01] MEDS: SLF 3 ML SYR IV (05:58)
[2017-10-01] MEDS: predniSONE 10 MG TAB PEG (08:50)
[2017-10-01] MEDS: CHLORHEXIDINE ORAL RINSE 0.12%/15ML 120ML BOTTLE SSP (08:50)
[2017-10-01] MEDS: CitaloPRAM (CeleXA) 10 MG TABLET PEG (08:50)
== END 2017-10-01 13:00 | disposition home health service (06) | DRG 176 ==
LOC: M PCU 09-28 02:06 → M ED 12:52 → M ED INP 17:08 → M PCU 23:40
DX: I26.99 Other pulmonary embolism without acute cor pulmonale (principal); E87.2 Acidosis; C78.00 Secondary malignant neoplasm of unspecified lung; I10 Essential (primary) hypertension; Z93.1 Gastrostomy status; Z93.0 Tracheostomy status; Z79.899 Other long term (current) drug therapy; Z79.52 Long term (current) use of systemic steroids; Z87.891 Personal history of nicotine dependence

== ENCOUNTER 2017-10-07 08:37 | Emergency (ER) | payer MEDICARE ==
[2017-10-07 10:25] LABS: HEMOGLOBIN 10.5 g/dl (12.0-15.5); MEAN CORPUSCULAR HEMOGLOBIN 30.1 pg (27.0-33.0); MEAN CORPUSCULAR HGB CONC 30.9 g/dl (32.0-36.5); MEAN CORPUSCULAR VOLUME 97.4 fl (80.0-96.0); PLATELET COUNT, AUTOMATED 261 10^3/uL (150-450); RED BLOOD COUNT 3.49 10^6/uL (4.00-5.40); RED CELL DISTRIBUTION WIDTH 15.9 % (11.5-14.5); WHITE BLOOD COUNT 10.5 10^3/uL (4.0-10.0)
[2017-10-07 10:36] LABS: INR 1.18; PROTHROMBIN TIME 15.2 SECONDS (12.4-14.5)
[2017-10-07 10:37] LABS: PARTIAL THROMBOPLASTIN TIME 33.4 SECONDS (26.8-37.9)
== END 2017-10-07 13:53 | disposition home or self-care (01) ==
LOC: M ED 08:37
DX: R04.2 Hemoptysis (principal); T45.515A Adverse effect of anticoagulants, initial encounter; C32.9 Malignant neoplasm of larynx, unspecified; J44.9 Chronic obstructive pulmonary disease, unspecified; Z93.0 Tracheostomy status; Z79.899 Other long term (current) drug therapy; Z79.01 Long term (current) use of anticoagulants; F17.210 Nicotine dependence, cigarettes, uncomplicated
CPT/HCPCS: 71046

== ENCOUNTER 2017-10-22 02:50 | Emergency (ER) | payer MEDICARE ==
[2017-10-22 04:05] LABS: BASO # 0.1 10^3/uL (0.0-0.2); BASO % 0.7 % (0.0-1.0); EOS # 0.4 10^3/uL (0.0-0.50); EOS % 3.9 % (0.0-3.0); HEMATOCRIT 31.7 % (36.0-47.0); HEMOGLOBIN 9.9 g/dl (12.0-15.5); IMMATURE GRANULOCYTE % 0.7 % (0-3.0); LYMPH # 0.9 10^3/uL (1.5-4.5); LYMPH % 9.7 % (24.0-44.0); MEAN CORPUSCULAR HEMOGLOBIN 29.6 pg (27.0-33.0); MEAN CORPUSCULAR HGB CONC 31.2 g/dl (32.0-36.5); MEAN CORPUSCULAR VOLUME 94.6 fl (80.0-96.0); MONO # 1.2 10^3/uL (0.0-0.8); MONO % 13.4 % (0.0-5.0); NEUTROPHILS # 6.4 10^3/uL (1.8-7.7); NEUTROPHILS % 71.6 % (36.0-66.0); PLATELET COUNT, AUTOMATED 413 10^3/uL (150-450); RED BLOOD COUNT 3.35 10^6/uL (4.00-5.40); RED CELL DISTRIBUTION WIDTH 15.4 % (11.5-14.5)
[2017-10-22 04:21] LABS: INR 1.61; PROTHROMBIN TIME 19.6 SECONDS (12.4-14.5)
[2017-10-22 04:23] LABS: PARTIAL THROMBOPLASTIN TIME 45.2 SECONDS (26.8-37.9)
[2017-10-22 04:26] LABS: ANION GAP 5 MEQ/L (8-16); BLOOD UREA NITROGEN 14 MG/DL (7-18); CALCIUM LEVEL 8.5 MG/DL (8.8-10.2); CARBON DIOXIDE LEVEL 32 MEQ/L (21-32); CHLORIDE LEVEL 102 MEQ/L (98-107); CREATININE FOR GFR 0.41 MG/DL (0.55-1.30); GLOMERULAR FILTRATION RATE > 60.0 (>32); GLUCOSE, FASTING 93 MG/DL (70-100); POTASSIUM SERUM 4.5 MEQ/L (3.5-5.1); SODIUM LEVEL 139 MEQ/L (136-145)
== END 2017-10-22 06:17 | disposition home or self-care (01) ==
LOC: M ED 02:50
DX: R04.2 Hemoptysis (principal); C15.9 Malignant neoplasm of esophagus, unspecified; Z93.0 Tracheostomy status; Z79.899 Other long term (current) drug therapy; Z79.51 Long term (current) use of inhaled steroids
CPT/HCPCS: 71045

== ENCOUNTER 2017-10-30 19:17 | Observation (INO) | payer MEDICARE ==
[2017-10-30 20:28] LABS: BASO % 0.3 % (0.0-1.0); EOS # 0.2 10^3/uL (0.0-0.50); HEMATOCRIT 27.8 % (36.0-47.0); HEMOGLOBIN 8.6 g/dl (12.0-15.5); IMMATURE GRANULOCYTE % 0.7 % (0-3.0); LYMPH # 0.6 10^3/uL (1.5-4.5); LYMPH % 5.2 % (24.0-44.0); MEAN CORPUSCULAR HEMOGLOBIN 28.6 pg (27.0-33.0); MEAN CORPUSCULAR HGB CONC 30.9 g/dl (32.0-36.5); MEAN CORPUSCULAR VOLUME 92.4 fl (80.0-96.0); MONO # 1.2 10^3/uL (0.0-0.8); MONO % 10.7 % (0.0-5.0); NEUTROPHILS % 81.1 % (36.0-66.0); PLATELET COUNT, AUTOMATED 470 10^3/uL (150-450); RED BLOOD COUNT 3.01 10^6/uL (4.00-5.40); RED CELL DISTRIBUTION WIDTH 15.9 % (11.5-14.5); WHITE BLOOD COUNT 11.1 10^3/uL (4.0-10.0)
[2017-10-30 20:50] LABS: LACTIC ACID SEPSIS PROTOCOL 1.1 MMOL/L (0.4-2.0)
[2017-10-30 20:50] LABS: ALBUMIN 2.2 GM/DL (3.2-5.2); ALBUMIN/GLOBULIN RATIO 0.61 (1.00-1.93); ALKALINE PHOSPHATASE 56 U/L (45-117); ALT/SGPT 17 U/L (12-78); ANION GAP 5 MEQ/L (8-16); AST/SGOT 19 U/L (7-37); BILIRUBIN,DIRECT 0.2 MG/DL (0.0-0.2); BILIRUBIN,TOTAL 0.3 MG/DL (0.2-1.0); BLOOD UREA NITROGEN 21 MG/DL (7-18); CALCIUM LEVEL 8.1 MG/DL (8.8-10.2); CARBON DIOXIDE LEVEL 36 MEQ/L (21-32); CHLORIDE LEVEL 95 MEQ/L (98-107); CPK CREATINE PHOSPHOKINASE 33 U/L (26-192); CREATININE FOR GFR 0.41 MG/DL (0.55-1.30); GLOMERULAR FILTRATION RATE > 60.0 (>32); GLUCOSE, FASTING 131 MG/DL (70-100); POTASSIUM SERUM 4.6 MEQ/L (3.5-5.1); SODIUM LEVEL 136 MEQ/L (136-145); THYROXINE (T4) 7.9 UG/DL (4.5-12.0); TOTAL PROTEIN 5.8 GM/DL (6.4-8.2); TROPONIN I 0.03 NG/ML (< 0.10)
[2017-10-30] MEDS: IPRATROPIUM 0.5MG/ALBUTEROL 2.5MG INH SOL UD 3ML (DUONEB)(J7620) NEB (20:53)
[2017-10-30 20:55] LABS: MB/CK RELATIVE INDEX 3.03 (< OR =4)
[2017-10-30] MEDS ORDERED: ISOVUE-370 76% 100ML VIAL (Q9967) As Ordered (22:55)
[2017-10-30] MEDS ORDERED: NORCO, ANEXSIA 5/325MG TABLET (HYDROcodone/ACETAMINOPHEN) PO (23:45)
[2017-10-30] MEDS ORDERED: IPRATROPIUM 0.5MG/ALBUTEROL 2.5MG INH SOL UD 3ML (DUONEB)(J7620) NEB (23:45)
[2017-10-31] MEDS: IPRATROPIUM 0.5MG/ALBUTEROL 2.5MG INH SOL UD 3ML (DUONEB)(J7620) NEB ×5 (00:28→20:50)
[2017-10-31] MEDS: ACETAMINOPHEN 325 MG/10.15 ML UDC PEG (00:29)
[2017-10-31 01:00] LABS: ABG BASE EXCESS 9.1 (-2.0-2.0); ABG HCO3 33.8 MEQ/L (22.0-26.0); ABG O2 SATURATION 98.9 % (95.0-99.0); ABG PARTIAL PRESSURE CO2 47.9 mmHg (35.0-45.0); ABG PARTIAL PRESSURE O2 124.9 mmHg (75.0-100.0); ABG STANDARD HCO3 32.9 MEQ/L (22.0-26.0); ABG TOTAL CO2 35.3 MEQ/L (23.0-31.0); ABG pH (ARTERIAL) 7.467 UNITS (7.350-7.450)
[2017-10-31] MEDS: NICOTINE 14 MG/24 HR TRANSDERMAL TD ×2 (02:40→21:19)
[2017-10-31] MEDS: ALPRAZolam 0.25 MG TAB PEG ×2 (04:00→09:58)
[2017-10-31] MEDS ORDERED: PILL CRUSHER/CUTTER 1 EACH XX (04:00)
[2017-10-31 06:13] LABS: ABG BASE EXCESS 10.6 (-2.0-2.0); ABG HCO3 35.4 MEQ/L (22.0-26.0); ABG O2 SATURATION 93.3 % (95.0-99.0); ABG PARTIAL PRESSURE CO2 49.1 mmHg (35.0-45.0); ABG PARTIAL PRESSURE O2 65.6 mmHg (75.0-100.0); ABG STANDARD HCO3 34.3 MEQ/L (22.0-26.0); ABG TOTAL CO2 36.9 MEQ/L (23.0-31.0); ABG pH (ARTERIAL) 7.476 UNITS (7.350-7.450)
[2017-10-31 06:47] LABS: BASO % 0.3 % (0.0-1.0); EOS # 0.3 10^3/uL (0.0-0.50); EOS % 2.5 % (0.0-3.0); HEMATOCRIT 26.8 % (36.0-47.0); HEMOGLOBIN 8.4 g/dl (12.0-15.5); IMMATURE GRANULOCYTE % 0.8 % (0-3.0); LYMPH # 0.9 10^3/uL (1.5-4.5); LYMPH % 8.9 % (24.0-44.0); MEAN CORPUSCULAR HEMOGLOBIN 28.6 pg (27.0-33.0); MEAN CORPUSCULAR HGB CONC 31.3 g/dl (32.0-36.5); MEAN CORPUSCULAR VOLUME 91.2 fl (80.0-96.0); MONO # 1.1 10^3/uL (0.0-0.8); MONO % 10.8 % (0.0-5.0); NEUTROPHILS # 7.6 10^3/uL (1.8-7.7); NEUTROPHILS % 76.7 % (36.0-66.0); PLATELET COUNT, AUTOMATED 439 10^3/uL (150-450); RED BLOOD COUNT 2.94 10^6/uL (4.00-5.40); RED CELL DISTRIBUTION WIDTH 15.8 % (11.5-14.5); WHITE BLOOD COUNT 9.9 10^3/uL (4.0-10.0)
[2017-10-31] MEDS: ACETYLCYSTEINE 20% 4 ML VIAL (200MG/ML) INH ×3 (08:00→20:50)
[2017-10-31] MEDS: CitaloPRAM (CeleXA) 10 MG TABLET PEG (08:01)
[2017-10-31] MEDS: RIVAROXABAN 20 MG TAB (XARELTO) PEG (08:01)
[2017-10-31] MEDS: DOXYCYCLINE HYCLATE 100 MG TAB PEG ×2 (08:01→21:19)
[2017-10-31] MEDS: NORCO, ANEXSIA 5/325MG TABLET (HYDROcodone/ACETAMINOPHEN) PEG ×3 (08:02→21:20)
[2017-10-31 08:04] LABS: ANION GAP 3 MEQ/L (8-16); BLOOD UREA NITROGEN 16 MG/DL (7-18); CALCIUM LEVEL 8.5 MG/DL (8.8-10.2); CARBON DIOXIDE LEVEL 34 MEQ/L (21-32); CHLORIDE LEVEL 98 MEQ/L (98-107); CREATININE FOR GFR 0.41 MG/DL (0.55-1.30); GLOMERULAR FILTRATION RATE > 60.0 (>32); GLUCOSE, FASTING 94 MG/DL (70-100); POTASSIUM SERUM 4.3 MEQ/L (3.5-5.1); SODIUM LEVEL 135 MEQ/L (136-145)
[2017-10-31] MEDS: ADVAIR HFA 230/21MCG INHALER INH ×2 (09:00→21:11)
[2017-10-31] MEDS ORDERED: RIVAROXABAN 20 MG TAB (XARELTO) PO (09:00)
[2017-10-31] MEDS ORDERED: DOXYCYCLINE HYCLATE 100 MG TAB PO (09:00)
[2017-10-31] MEDS: ONDANSETRON 4MG/2ML VIAL (J2405) IV (18:46)
[2017-11-01] MEDS: IPRATROPIUM 0.5MG/ALBUTEROL 2.5MG INH SOL UD 3ML (DUONEB)(J7620) NEB ×4 (02:39→22:43)
[2017-11-01] MEDS: ACETYLCYSTEINE 20% 4 ML VIAL (200MG/ML) INH ×2 (07:21→22:43)
[2017-11-01] MEDS: BUDESONIDE 0.5 MG/2 ML INHALATION SUSPENSION INH ×2 (08:00→22:43)
[2017-11-01] MEDS: FORMOTEROL FUMARATE 20 MCG/2 ML INHALATION SOLUTION (PERFOROMIST) NEB ×2 (08:00→22:43)
[2017-11-01] MEDS: RIVAROXABAN 20 MG TAB (XARELTO) PEG (08:36)
[2017-11-01] MEDS: CitaloPRAM (CeleXA) 10 MG TABLET PEG (08:36)
[2017-11-01] MEDS: NORCO, ANEXSIA 5/325MG TABLET (HYDROcodone/ACETAMINOPHEN) PEG ×2 (08:38→20:10)
[2017-11-01] MEDS: DOXYCYCLINE HYCLATE 100 MG TAB PEG ×2 (08:38→20:10)
[2017-11-01] MEDS ORDERED: ACETAMINOPHEN TAB 650MG DOSE (2X325MG) PO (09:45)
[2017-11-01] MEDS: SCOPOLAMINE 1MG TRANSDERMAL PATCH TOP (09:56)
[2017-11-01] MEDS: ADVAIR HFA 230/21MCG INHALER INH (11:33)
[2017-11-01] MEDS: ALPRAZolam 0.25 MG TAB PEG (17:51)
[2017-11-01] MEDS: ONDANSETRON 4MG/2ML VIAL (J2405) IV (17:51)
[2017-11-01] MEDS: NICOTINE 14 MG/24 HR TRANSDERMAL TD (20:11)
[2017-11-02] MEDS: IPRATROPIUM 0.5MG/ALBUTEROL 2.5MG INH SOL UD 3ML (DUONEB)(J7620) NEB ×3 (02:00→14:27)
[2017-11-02] MEDS: ALPRAZolam 0.25 MG TAB PEG ×2 (05:55→14:37)
[2017-11-02] MEDS: ACETYLCYSTEINE 20% 4 ML VIAL (200MG/ML) INH (07:26)
[2017-11-02 07:58] LABS: BASO # 0.1 10^3/uL (0.0-0.2); BASO % 0.5 % (0.0-1.0); EOS # 0.1 10^3/uL (0.0-0.50); EOS % 1.5 % (0.0-3.0); HEMATOCRIT 27.5 % (36.0-47.0); HEMOGLOBIN 8.5 g/dl (12.0-15.5); IMMATURE GRANULOCYTE % 0.9 % (0-3.0); LYMPH # 0.7 10^3/uL (1.5-4.5); MEAN CORPUSCULAR HEMOGLOBIN 28.3 pg (27.0-33.0); MEAN CORPUSCULAR HGB CONC 30.9 g/dl (32.0-36.5); MEAN CORPUSCULAR VOLUME 91.7 fl (80.0-96.0); MONO # 1.2 10^3/uL (0.0-0.8); MONO % 12.8 % (0.0-5.0); NEUTROPHILS # 7.3 10^3/uL (1.8-7.7); NEUTROPHILS % 77.3 % (36.0-66.0); PLATELET COUNT, AUTOMATED 463 10^3/uL (150-450); RED CELL DISTRIBUTION WIDTH 15.9 % (11.5-14.5); WHITE BLOOD COUNT 9.4 10^3/uL (4.0-10.0)
[2017-11-02 08:21] LABS: ANION GAP 3 MEQ/L (8-16); BLOOD UREA NITROGEN 15 MG/DL (7-18); CALCIUM LEVEL 8.7 MG/DL (8.8-10.2); CARBON DIOXIDE LEVEL 35 MEQ/L (21-32); CHLORIDE LEVEL 99 MEQ/L (98-107); CREATININE FOR GFR 0.43 MG/DL (0.55-1.30); GLOMERULAR FILTRATION RATE > 60.0 (>32); GLUCOSE, FASTING 100 MG/DL (70-100); MAGNESIUM LEVEL 2.1 MG/DL (1.8-2.4); POTASSIUM SERUM 4.4 MEQ/L (3.5-5.1); SODIUM LEVEL 137 MEQ/L (136-145)
[2017-11-02] MEDS: CitaloPRAM (CeleXA) 10 MG TABLET PEG (09:00)
[2017-11-02] MEDS: DOXYCYCLINE HYCLATE 100 MG TAB PEG (09:51)
[2017-11-02] MEDS: RIVAROXABAN 20 MG TAB (XARELTO) PEG (09:51)
[2017-11-02] MEDS: FORMOTEROL FUMARATE 20 MCG/2 ML INHALATION SOLUTION (PERFOROMIST) NEB (11:08)
[2017-11-02] MEDS: BUDESONIDE 0.5 MG/2 ML INHALATION SUSPENSION INH (11:08)
== END 2017-11-02 15:20 | disposition home or self-care (01) ==
LOC: M MS5PR 10-31 01:45 → M ED 19:17 → M ED INP 19:18
DX: J96.01 Acute respiratory failure with hypoxia (principal); J44.1 Chronic obstructive pulmonary disease with (acute) exacerbation; C32.9 Malignant neoplasm of larynx, unspecified; Z86.711 Personal history of pulmonary embolism; I10 Essential (primary) hypertension; D64.9 Anemia, unspecified; F41.1 Generalized anxiety disorder; Z79.01 Long term (current) use of anticoagulants; Z79.51 Long term (current) use of inhaled steroids; Z79.899 Other long term (current) drug therapy; Z87.891 Personal history of nicotine dependence
CPT/HCPCS: J2405

== ENCOUNTER 2017-11-26 00:27 | Inpatient (IN) | payer MEDICARE ==
[2017-11-26 01:44] LABS: BASO % 0.5 % (0.0-1.0); EOS # 0.1 10^3/uL (0.0-0.50); EOS % 0.9 % (0.0-3.0); HEMATOCRIT 31.4 % (36.0-47.0); HEMOGLOBIN 9.4 g/dl (12.0-15.5); IMMATURE GRANULOCYTE % 0.3 % (0-3.0); LYMPH % 13.6 % (24.0-44.0); MEAN CORPUSCULAR HEMOGLOBIN 26.6 pg (27.0-33.0); MEAN CORPUSCULAR HGB CONC 29.9 g/dl (32.0-36.5); MONO # 0.8 10^3/uL (0.0-0.8); MONO % 10.5 % (0.0-5.0); NEUTROPHILS # 5.5 10^3/uL (1.8-7.7); NEUTROPHILS % 74.2 % (36.0-66.0); PLATELET COUNT, AUTOMATED 383 10^3/uL (150-450); RED BLOOD COUNT 3.53 10^6/uL (4.00-5.40); RED CELL DISTRIBUTION WIDTH 16.9 % (11.5-14.5); WHITE BLOOD COUNT 7.5 10^3/uL (4.0-10.0)
[2017-11-26 01:47] LABS: INR 1.07
[2017-11-26 01:48] LABS: PARTIAL THROMBOPLASTIN TIME 32.1 SECONDS (26.8-37.9)
[2017-11-26 01:55] LABS: ALBUMIN 2.6 GM/DL (3.2-5.2); ALBUMIN/GLOBULIN RATIO 0.55 (1.00-1.93); ALKALINE PHOSPHATASE 50 U/L (45-117); ALT/SGPT 18 U/L (12-78); ANION GAP 4 MEQ/L (8-16); AST/SGOT 19 U/L (7-37); BILIRUBIN,DIRECT 0.1 MG/DL (0.0-0.2); BILIRUBIN,TOTAL 0.3 MG/DL (0.2-1.0); BLOOD UREA NITROGEN 14 MG/DL (7-18); CALCIUM LEVEL 9.6 MG/DL (8.8-10.2); CARBON DIOXIDE LEVEL 34 MEQ/L (21-32); CHLORIDE LEVEL 99 MEQ/L (98-107); CREATININE FOR GFR 0.37 MG/DL (0.55-1.30); GLOMERULAR FILTRATION RATE > 60.0 (>32); GLUCOSE, FASTING 90 MG/DL (70-100); SODIUM LEVEL 137 MEQ/L (136-145); TOTAL PROTEIN 7.3 GM/DL (6.4-8.2)
[2017-11-26] MEDS: PANTOPRAZOLE 40MG INJ (PROTONIX) (C9113) IV (05:30)
[2017-11-26] MEDS ORDERED: IPRATROPIUM 0.5MG/ALBUTEROL 2.5MG INH SOL UD 3ML (DUONEB)(J7620) NEB (06:00)
[2017-11-26 06:12] LABS: MAGNESIUM LEVEL 1.8 MG/DL (1.8-2.4); NT-PRO BNP 1442 PG/ML (<450)
[2017-11-26] MEDS ORDERED: ONDANSETRON 4MG/2ML VIAL (J2405) IV (06:15)
[2017-11-26 06:25] LABS: ANION GAP 8 MEQ/L (8-16); BLOOD UREA NITROGEN 12 MG/DL (7-18); CALCIUM LEVEL 9.2 MG/DL (8.8-10.2); CARBON DIOXIDE LEVEL 29 MEQ/L (21-32); CHLORIDE LEVEL 101 MEQ/L (98-107); CREATININE FOR GFR 0.38 MG/DL (0.55-1.30); GLOMERULAR FILTRATION RATE > 60.0 (>32); GLUCOSE, FASTING 105 MG/DL (70-100); SODIUM LEVEL 138 MEQ/L (136-145)
[2017-11-26 07:19] LABS: HEMATOCRIT 31.1 % (36.0-47.0); HEMOGLOBIN 9.5 g/dl (12.0-15.5); MEAN CORPUSCULAR HEMOGLOBIN 26.6 pg (27.0-33.0); MEAN CORPUSCULAR HGB CONC 30.5 g/dl (32.0-36.5); MEAN CORPUSCULAR VOLUME 87.1 fl (80.0-96.0); PLATELET COUNT, AUTOMATED 373 10^3/uL (150-450); RED BLOOD COUNT 3.57 10^6/uL (4.00-5.40); RED CELL DISTRIBUTION WIDTH 16.7 % (11.5-14.5)
[2017-11-26] MEDS: IPRATROPIUM 0.5MG/ALBUTEROL 2.5MG INH SOL UD 3ML (DUONEB)(J7620) NEB ×3 (08:00→13:26)
[2017-11-26] MEDS: SYMBICORT 160/4.5MCG INHALER 6GM INH ×2 (08:02→08:09)
[2017-11-26] MEDS: D5W/0.45% SODIUM CHLORIDE 1,000 ML IV ×2 (10:31→22:16)
[2017-11-26] MEDS: PANTOPRAZOLE SODIUM 40 MG in D5W 50 ML IV (10:32)
[2017-11-26 12:21] LABS: HEMOGLOBIN 9.5 g/dl (12.0-15.5)
[2017-11-26] MEDS: LANSOPRAZOLE SUSPENSION 30 MG/10 ML ORAL SYRINGE (FIRST-LANSOPRAZOLE) GT ×2 (12:43→22:16)
[2017-11-26] MEDS: SUCRALFATE SUSP 1GM/10ML UD GT ×3 (12:43→22:15)
[2017-11-26] MEDS: NICOTINE 14 MG/24 HR TRANSDERMAL TD (12:43)
[2017-11-26] MEDS: CitaloPRAM (CeleXA) 10 MG TABLET PEG (12:44)
[2017-11-26] MEDS: oxyCODONE 5MG TAB PEG ×3 (12:44→22:15)
[2017-11-26] MEDS: RIVAROXABAN 20 MG TAB (XARELTO) PO ×2 (15:08→22:15)
[2017-11-26 23:37] LABS: HEMATOCRIT 27.6 % (36.0-47.0); HEMOGLOBIN 8.4 g/dl (12.0-15.5); MEAN CORPUSCULAR HEMOGLOBIN 26.6 pg (27.0-33.0); MEAN CORPUSCULAR HGB CONC 30.4 g/dl (32.0-36.5); MEAN CORPUSCULAR VOLUME 87.3 fl (80.0-96.0); PLATELET COUNT, AUTOMATED 337 10^3/uL (150-450); RED BLOOD COUNT 3.16 10^6/uL (4.00-5.40); RED CELL DISTRIBUTION WIDTH 16.8 % (11.5-14.5); WHITE BLOOD COUNT 7.2 10^3/uL (4.0-10.0)
[2017-11-27 03:44] LABS: HEMATOCRIT 28.7 % (36.0-47.0); HEMOGLOBIN 8.9 g/dl (12.0-15.5); MEAN CORPUSCULAR HEMOGLOBIN 27.1 pg (27.0-33.0); MEAN CORPUSCULAR VOLUME 87.2 fl (80.0-96.0); PLATELET COUNT, AUTOMATED 376 10^3/uL (150-450); RED BLOOD COUNT 3.29 10^6/uL (4.00-5.40); RED CELL DISTRIBUTION WIDTH 16.6 % (11.5-14.5); WHITE BLOOD COUNT 7.1 10^3/uL (4.0-10.0)
[2017-11-27 04:04] LABS: ANION GAP 4 MEQ/L (8-16); BLOOD UREA NITROGEN 9 MG/DL (7-18); CARBON DIOXIDE LEVEL 32 MEQ/L (21-32); CHLORIDE LEVEL 101 MEQ/L (98-107); CREATININE FOR GFR 0.38 MG/DL (0.55-1.30); GLOMERULAR FILTRATION RATE > 60.0 (>32); GLUCOSE, FASTING 97 MG/DL (70-100); POTASSIUM SERUM 3.6 MEQ/L (3.5-5.1); SODIUM LEVEL 137 MEQ/L (136-145)
[2017-11-27] MEDS: IPRATROPIUM 0.5MG/ALBUTEROL 2.5MG INH SOL UD 3ML (DUONEB)(J7620) NEB ×5 (04:40→19:40)
[2017-11-27] MEDS: SYMBICORT 160/4.5MCG INHALER 6GM INH ×3 (04:40→19:41)
[2017-11-27 05:16] LABS: INR 1.58; PARTIAL THROMBOPLASTIN TIME 36.6 SECONDS (26.8-37.9); PROTHROMBIN TIME 19.3 SECONDS (12.4-14.5)
[2017-11-27] MEDS: NS 500 ML IV (05:30)
[2017-11-27 08:05] LABS: HEMATOCRIT 26.2 % (36.0-47.0); HEMOGLOBIN 7.9 g/dl (12.0-15.5); MEAN CORPUSCULAR HEMOGLOBIN 26.6 pg (27.0-33.0); MEAN CORPUSCULAR HGB CONC 30.2 g/dl (32.0-36.5); MEAN CORPUSCULAR VOLUME 88.2 fl (80.0-96.0); PLATELET COUNT, AUTOMATED 321 10^3/uL (150-450); RED BLOOD COUNT 2.97 10^6/uL (4.00-5.40); RED CELL DISTRIBUTION WIDTH 16.7 % (11.5-14.5); WHITE BLOOD COUNT 8.9 10^3/uL (4.0-10.0)
[2017-11-27] MEDS: NICOTINE 14 MG/24 HR TRANSDERMAL TD (08:41)
[2017-11-27] MEDS: SUCRALFATE SUSP 1GM/10ML UD GT ×4 (08:41→20:03)
[2017-11-27] MEDS: oxyCODONE 5MG TAB PEG ×3 (08:41→20:04)
[2017-11-27] MEDS: LANSOPRAZOLE SUSPENSION 30 MG/10 ML ORAL SYRINGE (FIRST-LANSOPRAZOLE) GT ×2 (08:41→20:04)
[2017-11-27 11:51] LABS: IMMEDIATE SPIN CROSSMATCH 1 1
[2017-11-27] MEDS: CitaloPRAM (CeleXA) 10 MG TABLET PEG (12:12)
[2017-11-27] MEDS: NS 1,000 ML IV (15:36)
[2017-11-27 15:37] LABS: HEMATOCRIT 26.4 % (36.0-47.0); HEMOGLOBIN 8.4 g/dl (12.0-15.5); MEAN CORPUSCULAR HEMOGLOBIN 27.3 pg (27.0-33.0); MEAN CORPUSCULAR HGB CONC 31.8 g/dl (32.0-36.5); MEAN CORPUSCULAR VOLUME 85.7 fl (80.0-96.0); PLATELET COUNT, AUTOMATED 298 10^3/uL (150-450); RED BLOOD COUNT 3.08 10^6/uL (4.00-5.40); RED CELL DISTRIBUTION WIDTH 17.1 % (11.5-14.5); WHITE BLOOD COUNT 9.3 10^3/uL (4.0-10.0)
[2017-11-27] MEDS: ALPRAZolam 0.25 MG TAB PEG (17:12)
[2017-11-28] MEDS: IPRATROPIUM 0.5MG/ALBUTEROL 2.5MG INH SOL UD 3ML (DUONEB)(J7620) NEB ×4 (01:05→20:11)
[2017-11-28 04:02] LABS: HEMATOCRIT 25.9 % (36.0-47.0); MEAN CORPUSCULAR HEMOGLOBIN 26.3 pg (27.0-33.0); MEAN CORPUSCULAR HGB CONC 30.9 g/dl (32.0-36.5); MEAN CORPUSCULAR VOLUME 85.2 fl (80.0-96.0); PLATELET COUNT, AUTOMATED 282 10^3/uL (150-450); RED BLOOD COUNT 3.04 10^6/uL (4.00-5.40); RED CELL DISTRIBUTION WIDTH 17.5 % (11.5-14.5); WHITE BLOOD COUNT 7.7 10^3/uL (4.0-10.0)
[2017-11-28 04:19] LABS: ANION GAP 6 MEQ/L (8-16); BLOOD UREA NITROGEN 9 MG/DL (7-18); CALCIUM LEVEL 8.1 MG/DL (8.8-10.2); CARBON DIOXIDE LEVEL 29 MEQ/L (21-32); CHLORIDE LEVEL 104 MEQ/L (98-107); GLOMERULAR FILTRATION RATE > 60.0 (>32); GLUCOSE, FASTING 91 MG/DL (70-100); POTASSIUM SERUM 3.1 MEQ/L (3.5-5.1); SODIUM LEVEL 139 MEQ/L (136-145)
[2017-11-28] MEDS: NS 1,000 ML IV ×2 (04:21→17:21)
[2017-11-28] MEDS: SYMBICORT 160/4.5MCG INHALER 6GM INH ×2 (07:15→21:00)
[2017-11-28] MEDS: CitaloPRAM (CeleXA) 10 MG TABLET PEG (08:12)
[2017-11-28] MEDS: SUCRALFATE SUSP 1GM/10ML UD GT ×4 (08:12→22:04)
[2017-11-28] MEDS: NICOTINE 14 MG/24 HR TRANSDERMAL TD (08:13)
[2017-11-28] MEDS: oxyCODONE 5MG TAB PEG ×3 (08:13→22:12)
[2017-11-28] MEDS: LANSOPRAZOLE SUSPENSION 30 MG/10 ML ORAL SYRINGE (FIRST-LANSOPRAZOLE) GT ×2 (08:13→22:04)
[2017-11-28] MEDS ORDERED: ISOVUE-300 61% 50ML VIAL (Q9967) As Ordered (08:59)
[2017-11-28] MEDS ORDERED: LIDOCAINE 2% MDV 20 ML VIAL As Ordered (08:59)
[2017-11-28] MEDS: KCL 10MEQ/100ML SWI (KRUN) 10 MEQ in APPROPRIATE DILUENT 1 EA IV ×2 (10:57→12:25)
[2017-11-28] MEDS: POTASSIUM CHL PWD 20 MEQ PACKET PEG (10:57)
[2017-11-28] MEDS: ALPRAZolam 0.25 MG TAB PEG (13:38)
[2017-11-29] MEDS: ALPRAZolam 0.25 MG TAB PEG ×2 (00:58→20:34)
[2017-11-29] MEDS: ACETAMINOPHEN TAB 650MG DOSE (2X325MG) PEG (02:49)
[2017-11-29] MEDS: IPRATROPIUM 0.5MG/ALBUTEROL 2.5MG INH SOL UD 3ML (DUONEB)(J7620) NEB ×4 (02:50→21:25)
[2017-11-29 04:59] LABS: HEMATOCRIT 24.4 % (36.0-47.0); HEMOGLOBIN 7.5 g/dl (12.0-15.5); MEAN CORPUSCULAR HEMOGLOBIN 26.4 pg (27.0-33.0); MEAN CORPUSCULAR HGB CONC 30.7 g/dl (32.0-36.5); MEAN CORPUSCULAR VOLUME 85.9 fl (80.0-96.0); PLATELET COUNT, AUTOMATED 272 10^3/uL (150-450); RED BLOOD COUNT 2.84 10^6/uL (4.00-5.40); RED CELL DISTRIBUTION WIDTH 16.9 % (11.5-14.5); WHITE BLOOD COUNT 10.4 10^3/uL (4.0-10.0)
[2017-11-29 05:17] LABS: ANION GAP 8 MEQ/L (8-16); BLOOD UREA NITROGEN 8 MG/DL (7-18); CALCIUM LEVEL 8.5 MG/DL (8.8-10.2); CARBON DIOXIDE LEVEL 27 MEQ/L (21-32); CHLORIDE LEVEL 103 MEQ/L (98-107); CREATININE FOR GFR 0.24 MG/DL (0.55-1.30); GLOMERULAR FILTRATION RATE > 60.0 (>32); GLUCOSE, FASTING 68 MG/DL (70-100); POTASSIUM SERUM 3.3 MEQ/L (3.5-5.1); SODIUM LEVEL 138 MEQ/L (136-145)
[2017-11-29] MEDS: SYMBICORT 160/4.5MCG INHALER 6GM INH (08:24)
[2017-11-29] MEDS: KCL 10MEQ/100ML SWI (KRUN) 10 MEQ in APPROPRIATE DILUENT 1 EA IV ×2 (09:27→11:22)
[2017-11-29] MEDS: LANSOPRAZOLE SUSPENSION 30 MG/10 ML ORAL SYRINGE (FIRST-LANSOPRAZOLE) GT ×2 (09:27→20:34)
[2017-11-29] MEDS: CitaloPRAM (CeleXA) 10 MG TABLET PEG (09:27)
[2017-11-29] MEDS: SUCRALFATE SUSP 1GM/10ML UD GT ×4 (09:27→20:34)
[2017-11-29] MEDS: oxyCODONE 5MG TAB PEG ×3 (09:28→20:34)
[2017-11-29] MEDS: NICOTINE 14 MG/24 HR TRANSDERMAL TD (09:28)
[2017-11-29] MEDS: PILL CRUSHER/CUTTER 1 EACH XX (10:11)
[2017-11-29] MEDS: KCL 20MEQ IN D5/0.45NS 1000ML 1,000 ML IV (11:22)
[2017-11-29] MEDS: FORMOTEROL FUMARATE 20 MCG/2 ML INHALATION SOLUTION (PERFOROMIST) INH ×2 (12:04→21:24)
[2017-11-29 12:10] LABS: IMMEDIATE SPIN CROSSMATCH 1 2
[2017-11-29 16:06] LABS: HEMATOCRIT 34.1 % (36.0-47.0); HEMOGLOBIN 10.9 g/dl (12.0-15.5); MEAN CORPUSCULAR HEMOGLOBIN 27.8 pg (27.0-33.0); PLATELET COUNT, AUTOMATED 268 10^3/uL (150-450); RED BLOOD COUNT 3.92 10^6/uL (4.00-5.40); RED CELL DISTRIBUTION WIDTH 16.1 % (11.5-14.5); WHITE BLOOD COUNT 12.6 10^3/uL (4.0-10.0)
[2017-11-30] MEDS: IPRATROPIUM 0.5MG/ALBUTEROL 2.5MG INH SOL UD 3ML (DUONEB)(J7620) NEB ×4 (02:02→20:00)
[2017-11-30] MEDS: KCL 20MEQ IN D5/0.45NS 1000ML 1,000 ML IV (03:50)
[2017-11-30 05:06] LABS: HEMATOCRIT 29.7 % (36.0-47.0); HEMOGLOBIN 9.5 g/dl (12.0-15.5); MEAN CORPUSCULAR HEMOGLOBIN 27.6 pg (27.0-33.0); MEAN CORPUSCULAR VOLUME 86.3 fl (80.0-96.0); PLATELET COUNT, AUTOMATED 267 10^3/uL (150-450); RED BLOOD COUNT 3.44 10^6/uL (4.00-5.40); RED CELL DISTRIBUTION WIDTH 16.1 % (11.5-14.5); WHITE BLOOD COUNT 9.1 10^3/uL (4.0-10.0)
[2017-11-30 05:24] LABS: ANION GAP 6 MEQ/L (8-16); BLOOD UREA NITROGEN 7 MG/DL (7-18); CALCIUM LEVEL 8.8 MG/DL (8.8-10.2); CARBON DIOXIDE LEVEL 28 MEQ/L (21-32); CHLORIDE LEVEL 103 MEQ/L (98-107); CREATININE FOR GFR 0.26 MG/DL (0.55-1.30); GLOMERULAR FILTRATION RATE > 60.0 (>32); GLUCOSE, FASTING 96 MG/DL (70-100); POTASSIUM SERUM 3.3 MEQ/L (3.5-5.1); SODIUM LEVEL 137 MEQ/L (136-145)
[2017-11-30] MEDS: FORMOTEROL FUMARATE 20 MCG/2 ML INHALATION SOLUTION (PERFOROMIST) INH ×2 (08:42→20:02)
[2017-11-30] MEDS: LANSOPRAZOLE SUSPENSION 30 MG/10 ML ORAL SYRINGE (FIRST-LANSOPRAZOLE) GT ×2 (08:55→21:13)
[2017-11-30] MEDS: SUCRALFATE SUSP 1GM/10ML UD GT ×4 (08:55→21:13)
[2017-11-30] MEDS: POTASSIUM CHLORIDE 10% LIQ 20 MEQ/15 ML UDC PO (08:55)
[2017-11-30] MEDS: NICOTINE 14 MG/24 HR TRANSDERMAL TD (08:57)
[2017-11-30] MEDS: CitaloPRAM (CeleXA) 10 MG TABLET PEG (08:58)
[2017-11-30] MEDS: oxyCODONE 5MG TAB PEG ×3 (08:59→21:14)
[2017-11-30] MEDS: POTASSIUM CHLORIDE 10 MEQ SR TABLET PO (09:19)
[2017-11-30 12:15] LABS: HEMATOCRIT 28.4 % (36.0-47.0); HEMOGLOBIN 9.3 g/dl (12.0-15.5)
[2017-11-30] MEDS ORDERED: hydrALAZINE INJ 20 MG/ML VIAL IV (17:00)
[2017-11-30 18:15] LABS: HEMATOCRIT 29.2 % (36.0-47.0); HEMOGLOBIN 9.4 g/dl (12.0-15.5)
[2017-11-30] MEDS: ALPRAZolam 0.25 MG TAB PEG (21:13)
[2017-11-30 23:44] LABS: HEMATOCRIT 28.5 % (36.0-47.0); HEMOGLOBIN 9.2 g/dl (12.0-15.5)
[2017-12-01] MEDS: IPRATROPIUM 0.5MG/ALBUTEROL 2.5MG INH SOL UD 3ML (DUONEB)(J7620) NEB ×4 (01:24→23:01)
[2017-12-01 06:09] LABS: HEMATOCRIT 29.5 % (36.0-47.0); HEMOGLOBIN 9.4 g/dl (12.0-15.5); MEAN CORPUSCULAR HEMOGLOBIN 27.7 pg (27.0-33.0); MEAN CORPUSCULAR HGB CONC 31.9 g/dl (32.0-36.5); PLATELET COUNT, AUTOMATED 279 10^3/uL (150-450); RED BLOOD COUNT 3.39 10^6/uL (4.00-5.40); RED CELL DISTRIBUTION WIDTH 16.2 % (11.5-14.5); WHITE BLOOD COUNT 7.9 10^3/uL (4.0-10.0)
[2017-12-01 06:39] LABS: ANION GAP 7 MEQ/L (8-16); BLOOD UREA NITROGEN 7 MG/DL (7-18); CARBON DIOXIDE LEVEL 29 MEQ/L (21-32); CHLORIDE LEVEL 102 MEQ/L (98-107); CREATININE FOR GFR 0.25 MG/DL (0.55-1.30); GLOMERULAR FILTRATION RATE > 60.0 (>32); GLUCOSE, FASTING 112 MG/DL (70-100); MAGNESIUM LEVEL 1.4 MG/DL (1.8-2.4); POTASSIUM SERUM 3.2 MEQ/L (3.5-5.1); SODIUM LEVEL 138 MEQ/L (136-145)
[2017-12-01] MEDS: FORMOTEROL FUMARATE 20 MCG/2 ML INHALATION SOLUTION (PERFOROMIST) INH ×2 (07:49→23:01)
[2017-12-01] MEDS: oxyCODONE 5MG TAB PEG ×3 (08:46→21:04)
[2017-12-01] MEDS: MAG SULF 1GM/100ML (MAG RUN) 1 GM in APPROPRIATE DILUENT 1 EA IV ×2 (09:27→09:30)
[2017-12-01] MEDS: NICOTINE 14 MG/24 HR TRANSDERMAL TD (09:27)
[2017-12-01] MEDS: ALPRAZolam 0.25 MG TAB PEG (09:28)
[2017-12-01] MEDS: SUCRALFATE SUSP 1GM/10ML UD GT ×4 (09:28→21:02)
[2017-12-01] MEDS: CitaloPRAM (CeleXA) 10 MG TABLET PEG (09:29)
[2017-12-01] MEDS: POTASSIUM CHLORIDE 10 MEQ SR TABLET PO ×2 (09:29→12:33)
[2017-12-01 12:28] LABS: HEMATOCRIT 33.1 % (36.0-47.0); HEMOGLOBIN 10.6 g/dl (12.0-15.5)
[2017-12-01 12:28] LABS: HEMOGLOBIN 10.6 g/dl (12.0-15.5)
[2017-12-01] MEDS: LANSOPRAZOLE SUSPENSION 30 MG/10 ML ORAL SYRINGE (FIRST-LANSOPRAZOLE) GT ×2 (12:32→22:36)
[2017-12-01] MEDS ORDERED: LIDOCAINE 1% MDV 20ML VIAL As Ordered (13:24)
[2017-12-01 17:58] LABS: HEMOGLOBIN 10.2 g/dl (12.0-15.5)
[2017-12-02 00:38] LABS: HEMOGLOBIN 9.8 g/dl (12.0-15.5)
[2017-12-02] MEDS: IPRATROPIUM 0.5MG/ALBUTEROL 2.5MG INH SOL UD 3ML (DUONEB)(J7620) NEB ×2 (04:16→07:59)
[2017-12-02 06:22] LABS: HEMATOCRIT 29.8 % (36.0-47.0); HEMOGLOBIN 9.4 g/dl (12.0-15.5); MEAN CORPUSCULAR HEMOGLOBIN 27.6 pg (27.0-33.0); MEAN CORPUSCULAR HGB CONC 31.5 g/dl (32.0-36.5); MEAN CORPUSCULAR VOLUME 87.4 fl (80.0-96.0); PLATELET COUNT, AUTOMATED 296 10^3/uL (150-450); RED BLOOD COUNT 3.41 10^6/uL (4.00-5.40); RED CELL DISTRIBUTION WIDTH 16.1 % (11.5-14.5)
[2017-12-02 06:37] LABS: ANION GAP 4 MEQ/L (8-16); BLOOD UREA NITROGEN 8 MG/DL (7-18); CALCIUM LEVEL 8.5 MG/DL (8.8-10.2); CARBON DIOXIDE LEVEL 34 MEQ/L (21-32); CHLORIDE LEVEL 101 MEQ/L (98-107); GLOMERULAR FILTRATION RATE > 60.0 (>32); GLUCOSE, FASTING 120 MG/DL (70-100); MAGNESIUM LEVEL 1.8 MG/DL (1.8-2.4); POTASSIUM SERUM 3.4 MEQ/L (3.5-5.1); SODIUM LEVEL 139 MEQ/L (136-145)
[2017-12-02] MEDS: FORMOTEROL FUMARATE 20 MCG/2 ML INHALATION SOLUTION (PERFOROMIST) INH (07:59)
[2017-12-02] MEDS: CitaloPRAM (CeleXA) 10 MG TABLET PEG (08:21)
[2017-12-02] MEDS: SUCRALFATE SUSP 1GM/10ML UD GT ×2 (08:21→11:35)
[2017-12-02] MEDS: ALPRAZolam 0.25 MG TAB PEG (08:22)
[2017-12-02] MEDS: POTASSIUM CHLORIDE 10 MEQ SR TABLET PO (08:22)
[2017-12-02] MEDS: LANSOPRAZOLE SUSPENSION 30 MG/10 ML ORAL SYRINGE (FIRST-LANSOPRAZOLE) GT (08:23)
[2017-12-02] MEDS: oxyCODONE 5MG TAB PEG (08:23)
[2017-12-02] MEDS: NICOTINE 14 MG/24 HR TRANSDERMAL TD (08:25)
== END 2017-12-02 11:55 | disposition home health service (06) | DRG 981 ==
LOC: M ICU 11-27 03:57 → M PCU 12-01 01:54 → M MSPAV 12-01 20:32 → M ED 00:27 → M ED INP 06:01 → M MS5PR 07:45
PROC: 30233N1 Transfusion of Nonautologous Red Blood Cells into Peripheral Vein, Percutaneous Approach (ICD-10-PCS; principal; 2017-11-27)
PROC: 06H03DZ Insertion of Intraluminal Device into Inferior Vena Cava, Percutaneous Approach (ICD-10-PCS; 2017-11-28)
DX: C32.9 Malignant neoplasm of larynx, unspecified (principal); I26.99 Other pulmonary embolism without acute cor pulmonale; D62 Acute posthemorrhagic anemia; J44.9 Chronic obstructive pulmonary disease, unspecified; I10 Essential (primary) hypertension; K29.70 Gastritis, unspecified, without bleeding; R13.10 Dysphagia, unspecified; M25.462 Effusion, left knee; F41.1 Generalized anxiety disorder; Z93.1 Gastrostomy status; Z93.0 Tracheostomy status; Z99.81 Dependence on supplemental oxygen; Z91.048 Other nonmedicinal substance allergy status; Z79.891 Long term (current) use of opiate analgesic; Z79.01 Long term (current) use of anticoagulants; Z79.899 Other long term (current) drug therapy; Z87.891 Personal history of nicotine dependence

== ENCOUNTER → 2017-12-06 | Outpatient (REF) | payer MEDICARE | LOC: M LAB REF 12:33 | DX: C32.1 Malignant neoplasm of supraglottis (principal) | CPT/HCPCS: 88300 ==

== ENCOUNTER → 2017-12-20 | Outpatient (CLI) | payer MEDICARE | LOC: M ONCR 09:09 | DX: C32.9 Malignant neoplasm of larynx, unspecified (principal); Z93.1 Gastrostomy status | CPT/HCPCS: G0463 ==

== ENCOUNTER 2018-01-31 02:38 | Inpatient (IN) | payer MEDICARE ==
[2018-01-31 03:06] LABS: HEMATOCRIT 34.9 % (36.0-47.0); HEMOGLOBIN 10.5 g/dl (12.0-15.5); MEAN CORPUSCULAR HEMOGLOBIN 26.8 pg (27.0-33.0); MEAN CORPUSCULAR HGB CONC 30.1 g/dl (32.0-36.5); PLATELET COUNT, AUTOMATED 297 10^3/uL (150-450); RED BLOOD COUNT 3.92 10^6/uL (4.00-5.40); RED CELL DISTRIBUTION WIDTH 17.3 % (11.5-14.5); WHITE BLOOD COUNT 8.6 10^3/uL (4.0-10.0)
[2018-01-31 03:25] LABS: ANION GAP 5 MEQ/L (8-16); BLOOD UREA NITROGEN 20 MG/DL (7-18); CARBON DIOXIDE LEVEL 36 MEQ/L (21-32); CHLORIDE LEVEL 100 MEQ/L (98-107); CREATININE FOR GFR 0.48 MG/DL (0.55-1.30); GLOMERULAR FILTRATION RATE > 60.0 (>32); GLUCOSE, FASTING 107 MG/DL (70-100); POTASSIUM SERUM 4.7 MEQ/L (3.5-5.1); SODIUM LEVEL 141 MEQ/L (136-145)
[2018-01-31] MEDS: NS 1,000 ML IV ×2 (05:26→18:46)
[2018-01-31 06:39] LABS: HEMATOCRIT 28.9 % (36.0-47.0); HEMOGLOBIN 8.8 g/dl (12.0-15.5); MEAN CORPUSCULAR HEMOGLOBIN 26.5 pg (27.0-33.0); MEAN CORPUSCULAR HGB CONC 30.4 g/dl (32.0-36.5); PLATELET COUNT, AUTOMATED 311 10^3/uL (150-450); RED BLOOD COUNT 3.32 10^6/uL (4.00-5.40); RED CELL DISTRIBUTION WIDTH 17.3 % (11.5-14.5); WHITE BLOOD COUNT 9.7 10^3/uL (4.0-10.0)
[2018-01-31] MEDS: IPRATROPIUM 0.5MG/ALBUTEROL 2.5MG INH SOL UD 3ML (DUONEB)(J7620) INH ×4 (08:00→20:00)
[2018-01-31] MEDS: BUDESONIDE 0.25 MG/2 ML INHALATION SUSPENSION INH ×2 (08:00→19:46)
[2018-01-31] MEDS: FORMOTEROL FUMARATE 20 MCG/2 ML INHALATION SOLUTION (PERFOROMIST) INH ×2 (08:00→19:46)
[2018-01-31] MEDS: SUCRALFATE SUSP 1GM/10ML UD PEG ×4 (09:12→20:50)
[2018-01-31] MEDS: ACETAMINOPHEN 500 MG TAB PEG ×2 (09:13→16:34)
[2018-01-31] MEDS ORDERED: PILL CRUSHER/CUTTER 1 EACH XX (09:15)
[2018-01-31] MEDS: ONDANSETRON 4 MG ORAL DISINTEGRATING TAB (Q0162 PER 1MG) PEG ×2 (10:05→18:37)
[2018-01-31 11:27] LABS: HEMATOCRIT 28.7 % (36.0-47.0); HEMOGLOBIN 8.7 g/dl (12.0-15.5); MEAN CORPUSCULAR HEMOGLOBIN 26.9 pg (27.0-33.0); MEAN CORPUSCULAR HGB CONC 30.3 g/dl (32.0-36.5); MEAN CORPUSCULAR VOLUME 88.6 fl (80.0-96.0); PLATELET COUNT, AUTOMATED 293 10^3/uL (150-450); RED BLOOD COUNT 3.24 10^6/uL (4.00-5.40); RED CELL DISTRIBUTION WIDTH 17.2 % (11.5-14.5); WHITE BLOOD COUNT 10.7 10^3/uL (4.0-10.0)
[2018-01-31] MEDS: OMEPRAZOLE 20 MG CAP PO (12:37)
[2018-01-31 18:00] LABS: HEMOGLOBIN 8.5 g/dl (12.0-15.5); MEAN CORPUSCULAR HEMOGLOBIN 27.2 pg (27.0-33.0); MEAN CORPUSCULAR HGB CONC 30.4 g/dl (32.0-36.5); MEAN CORPUSCULAR VOLUME 89.5 fl (80.0-96.0); PLATELET COUNT, AUTOMATED 309 10^3/uL (150-450); RED BLOOD COUNT 3.13 10^6/uL (4.00-5.40); RED CELL DISTRIBUTION WIDTH 17.5 % (11.5-14.5); WHITE BLOOD COUNT 12.9 10^3/uL (4.0-10.0)
[2018-01-31] MEDS: ALPRAZolam 0.25 MG TAB PEG ×2 (18:37→21:54)
[2018-01-31] MEDS: NICOTINE 14 MG/24 HR TRANSDERMAL TD (20:51)
[2018-01-31] MEDS: CitaloPRAM (CeleXA) 10 MG TABLET PEG (21:53)
[2018-02-01] MEDS: ACETAMINOPHEN 500 MG TAB PEG ×2 (00:02→08:03)
[2018-02-01 00:34] LABS: HEMATOCRIT 25.5 % (36.0-47.0); HEMOGLOBIN 7.7 g/dl (12.0-15.5); MEAN CORPUSCULAR HEMOGLOBIN 26.7 pg (27.0-33.0); MEAN CORPUSCULAR HGB CONC 30.2 g/dl (32.0-36.5); MEAN CORPUSCULAR VOLUME 88.5 fl (80.0-96.0); PLATELET COUNT, AUTOMATED 275 10^3/uL (150-450); RED BLOOD COUNT 2.88 10^6/uL (4.00-5.40); RED CELL DISTRIBUTION WIDTH 17.4 % (11.5-14.5); WHITE BLOOD COUNT 9.2 10^3/uL (4.0-10.0)
[2018-02-01 05:22] LABS: IMMEDIATE SPIN CROSSMATCH 1 2
[2018-02-01] MEDS: FORMOTEROL FUMARATE 20 MCG/2 ML INHALATION SOLUTION (PERFOROMIST) INH ×2 (07:17→20:08)
[2018-02-01] MEDS: BUDESONIDE 0.25 MG/2 ML INHALATION SUSPENSION INH ×2 (07:17→20:08)
[2018-02-01] MEDS: IPRATROPIUM 0.5MG/ALBUTEROL 2.5MG INH SOL UD 3ML (DUONEB)(J7620) INH ×4 (08:00→20:00)
[2018-02-01] MEDS: OMEPRAZOLE 20 MG CAP PO (08:02)
[2018-02-01] MEDS: SUCRALFATE SUSP 1GM/10ML UD PEG ×4 (08:02→20:00)
[2018-02-01 08:37] LABS: HEMATOCRIT 31.1 % (36.0-47.0); MEAN CORPUSCULAR HEMOGLOBIN 27.1 pg (27.0-33.0); MEAN CORPUSCULAR HGB CONC 31.5 g/dl (32.0-36.5); MEAN CORPUSCULAR VOLUME 86.1 fl (80.0-96.0); PLATELET COUNT, AUTOMATED 260 10^3/uL (150-450); RED BLOOD COUNT 3.61 10^6/uL (4.00-5.40); RED CELL DISTRIBUTION WIDTH 16.2 % (11.5-14.5); WHITE BLOOD COUNT 8.7 10^3/uL (4.0-10.0)
[2018-02-01 08:59] LABS: HEMOGLOBIN 9.8 g/dl (12.0-15.5)
[2018-02-01 09:00] LABS: BLOOD UREA NITROGEN 18 MG/DL (7-18); CARBON DIOXIDE LEVEL 32 MEQ/L (21-32); CHLORIDE LEVEL 102 MEQ/L (98-107); CREATININE FOR GFR 0.36 MG/DL (0.55-1.30); GLOMERULAR FILTRATION RATE > 60.0 (>32); GLUCOSE, FASTING 99 MG/DL (70-100); POTASSIUM SERUM 4.2 MEQ/L (3.5-5.1); SODIUM LEVEL 140 MEQ/L (136-145)
[2018-02-01 09:01] LABS: ANION GAP 6 MEQ/L (8-16)
[2018-02-01] MEDS: ALPRAZolam 0.25 MG TAB PEG ×2 (11:07→20:16)
[2018-02-01] MEDS: ONDANSETRON 4 MG ORAL DISINTEGRATING TAB (Q0162 PER 1MG) PEG (11:33)
[2018-02-01] MEDS: oxyCODONE 5MG TAB PO (16:25)
[2018-02-01 18:21] LABS: MAGNESIUM LEVEL 1.9 MG/DL (1.8-2.4)
[2018-02-01] MEDS: SCOPOLAMINE 1MG TRANSDERMAL PATCH TD (20:00)
[2018-02-01] MEDS: MAG SULF 1GM/100ML (MAG RUN) 1 GM in APPROPRIATE DILUENT 1 EA IV (20:00)
[2018-02-01] MEDS: CitaloPRAM (CeleXA) 10 MG TABLET PEG (20:01)
[2018-02-01] MEDS: NICOTINE 14 MG/24 HR TRANSDERMAL TD (20:01)
[2018-02-02] MEDS: ACETAMINOPHEN 500 MG TAB PEG ×2 (00:24→08:49)
[2018-02-02 06:49] LABS: HEMATOCRIT 31.3 % (36.0-47.0); HEMOGLOBIN 9.7 g/dl (12.0-15.5); MEAN CORPUSCULAR HEMOGLOBIN 26.9 pg (27.0-33.0); MEAN CORPUSCULAR VOLUME 86.7 fl (80.0-96.0); PLATELET COUNT, AUTOMATED 256 10^3/uL (150-450); RED BLOOD COUNT 3.61 10^6/uL (4.00-5.40); RED CELL DISTRIBUTION WIDTH 16.5 % (11.5-14.5); WHITE BLOOD COUNT 7.3 10^3/uL (4.0-10.0)
[2018-02-02 07:05] LABS: ANION GAP 4 MEQ/L (8-16); BLOOD UREA NITROGEN 16 MG/DL (7-18); CALCIUM LEVEL 9.5 MG/DL (8.8-10.2); CARBON DIOXIDE LEVEL 34 MEQ/L (21-32); CHLORIDE LEVEL 101 MEQ/L (98-107); CREATININE FOR GFR 0.38 MG/DL (0.55-1.30); GLOMERULAR FILTRATION RATE > 60.0 (>32); GLUCOSE, FASTING 80 MG/DL (70-100); POTASSIUM SERUM 4.1 MEQ/L (3.5-5.1); SODIUM LEVEL 139 MEQ/L (136-145)
[2018-02-02] MEDS: FORMOTEROL FUMARATE 20 MCG/2 ML INHALATION SOLUTION (PERFOROMIST) INH ×2 (07:11→20:57)
[2018-02-02] MEDS: BUDESONIDE 0.25 MG/2 ML INHALATION SUSPENSION INH ×2 (07:15→20:57)
[2018-02-02] MEDS: IPRATROPIUM 0.5MG/ALBUTEROL 2.5MG INH SOL UD 3ML (DUONEB)(J7620) INH ×4 (08:00→20:00)
[2018-02-02] MEDS: SUCRALFATE SUSP 1GM/10ML UD PEG ×4 (08:50→20:53)
[2018-02-02] MEDS: ONDANSETRON 4 MG ORAL DISINTEGRATING TAB (Q0162 PER 1MG) PEG ×2 (08:50→15:02)
[2018-02-02] MEDS: OMEPRAZOLE 20 MG CAP PO (08:50)
[2018-02-02] MEDS: ALPRAZolam 0.25 MG TAB PEG ×2 (11:22→20:53)
[2018-02-02] MEDS: oxyCODONE 5MG TAB PO ×2 (15:04→18:36)
[2018-02-02] MEDS: NICOTINE 14 MG/24 HR TRANSDERMAL TD (20:53)
[2018-02-02] MEDS: CitaloPRAM (CeleXA) 10 MG TABLET PEG (20:53)
[2018-02-02] MEDS: NYSTATIN 100,000 UNITS/GM TOPICAL PWD 15 GM TOP (20:54)
[2018-02-03] MEDS: oxyCODONE 5MG TAB PO (04:14)
[2018-02-03] MEDS: IPRATROPIUM 0.5MG/ALBUTEROL 2.5MG INH SOL UD 3ML (DUONEB)(J7620) NEB (04:44)
[2018-02-03] MEDS: FORMOTEROL FUMARATE 20 MCG/2 ML INHALATION SOLUTION (PERFOROMIST) INH ×2 (07:48→20:06)
[2018-02-03] MEDS: BUDESONIDE 0.25 MG/2 ML INHALATION SUSPENSION INH ×2 (07:48→20:06)
[2018-02-03] MEDS: IPRATROPIUM 0.5MG/ALBUTEROL 2.5MG INH SOL UD 3ML (DUONEB)(J7620) INH ×4 (08:00→20:00)
[2018-02-03] MEDS: OMEPRAZOLE 20 MG CAP PO (09:46)
[2018-02-03] MEDS: SUCRALFATE SUSP 1GM/10ML UD PEG ×4 (09:46→20:44)
[2018-02-03] MEDS: ACETAMINOPHEN 500 MG TAB PEG ×2 (14:38→23:18)
[2018-02-03] MEDS: NYSTATIN 100,000 UNITS/GM TOPICAL PWD 15 GM TOP (17:10)
[2018-02-03 18:46] LABS: AMORPHOUS SEDIMENT RFX SMALL (NEGATIVE); KETONE, URINE AUTO RFX NEGATIVE (NEGATIVE); NITRITE, URINE AUTO RFX NEGATIVE (NEGATIVE); RBC, URINE AUTO RFX 4 /HPF (0-3); SPECIFIC GRAVITY UR AUTO RFX 1.012 (1.002-1.035); SQUAM EPITHELIAL CELL UR AURFX 0 /HPF (0-6); WBC, URINE AUTO RFX 4 /HPF (0-3)
[2018-02-03 19:14] LABS: LEUKOCYTE ESTERASE UR AUTO RFX 3+ (NEGATIVE)
[2018-02-03] MEDS: CitaloPRAM (CeleXA) 10 MG TABLET PEG (20:45)
[2018-02-03] MEDS: NICOTINE 14 MG/24 HR TRANSDERMAL TD (20:46)
[2018-02-03] MEDS: ONDANSETRON 4 MG ORAL DISINTEGRATING TAB (Q0162 PER 1MG) PEG (23:17)
[2018-02-03 23:47] LABS: BEDSIDE GLUCOSE 80 MG/DL (83-110)
[2018-02-04] MEDS: ALPRAZolam 0.25 MG TAB PEG ×4 (01:44→20:38)
[2018-02-04] MEDS: BUDESONIDE 0.25 MG/2 ML INHALATION SUSPENSION INH ×2 (07:10→19:40)
[2018-02-04] MEDS: IPRATROPIUM 0.5MG/ALBUTEROL 2.5MG INH SOL UD 3ML (DUONEB)(J7620) INH ×4 (07:10→19:40)
[2018-02-04] MEDS: FORMOTEROL FUMARATE 20 MCG/2 ML INHALATION SOLUTION (PERFOROMIST) INH ×2 (07:10→19:40)
[2018-02-04 07:24] LABS: BASO % 0.3 % (0.0-1.0); EOS # 0.1 10^3/uL (0.0-0.50); EOS % 1.3 % (0.0-3.0); HEMATOCRIT 29.9 % (36.0-47.0); HEMOGLOBIN 9.2 g/dl (12.0-15.5); IMMATURE GRANULOCYTE % 0.5 % (0-3.0); LYMPH # 0.9 10^3/uL (1.5-4.5); LYMPH % 12.1 % (24.0-44.0); MEAN CORPUSCULAR HEMOGLOBIN 27.5 pg (27.0-33.0); MEAN CORPUSCULAR HGB CONC 30.8 g/dl (32.0-36.5); MEAN CORPUSCULAR VOLUME 89.3 fl (80.0-96.0); MONO # 0.7 10^3/uL (0.0-0.8); MONO % 9.2 % (0.0-5.0); NEUTROPHILS # 5.8 10^3/uL (1.8-7.7); NEUTROPHILS % 76.6 % (36.0-66.0); PLATELET COUNT, AUTOMATED 265 10^3/uL (150-450); RED BLOOD COUNT 3.35 10^6/uL (4.00-5.40); RED CELL DISTRIBUTION WIDTH 16.7 % (11.5-14.5); WHITE BLOOD COUNT 7.5 10^3/uL (4.0-10.0)
[2018-02-04 07:43] LABS: ERYTHROCYTE SEDIMENTATION RATE 63 mm/hr (0-42)
[2018-02-04 07:59] LABS: ANION GAP 5 MEQ/L (8-16); BLOOD UREA NITROGEN 18 MG/DL (7-18); C REACTIVE PROTEIN QUANTITATIV 8.89 MG/DL (0.00-0.30); CALCIUM LEVEL 9.7 MG/DL (8.8-10.2); CARBON DIOXIDE LEVEL 35 MEQ/L (21-32); CHLORIDE LEVEL 101 MEQ/L (98-107); CREATININE FOR GFR 0.35 MG/DL (0.55-1.30); GLOMERULAR FILTRATION RATE > 60.0 (>32); GLUCOSE, FASTING 89 MG/DL (70-100); POTASSIUM SERUM 4.3 MEQ/L (3.5-5.1); SODIUM LEVEL 141 MEQ/L (136-145)
[2018-02-04] MEDS: OMEPRAZOLE 20 MG CAP PO (08:49)
[2018-02-04] MEDS: SUCRALFATE SUSP 1GM/10ML UD PEG ×4 (08:49→20:39)
[2018-02-04] MEDS: ACETAMINOPHEN 500 MG TAB PEG (10:56)
[2018-02-04] MEDS: oxyCODONE 5MG TAB PO ×2 (15:40→20:39)
[2018-02-04] MEDS: IPRATROPIUM 0.5MG/ALBUTEROL 2.5MG INH SOL UD 3ML (DUONEB)(J7620) NEB (17:28)
[2018-02-04] MEDS: NICOTINE 14 MG/24 HR TRANSDERMAL TD (20:38)
[2018-02-04] MEDS: CitaloPRAM (CeleXA) 10 MG TABLET PEG (20:39)
[2018-02-04] MEDS: SCOPOLAMINE 1MG TRANSDERMAL PATCH TD (20:39)
[2018-02-05] MEDS: ONDANSETRON 4 MG ORAL DISINTEGRATING TAB (Q0162 PER 1MG) PEG ×3 (03:03→20:46)
[2018-02-05] MEDS: ACETAMINOPHEN 500 MG TAB PEG ×3 (03:04→17:05)
[2018-02-05] MEDS: IPRATROPIUM 0.5MG/ALBUTEROL 2.5MG INH SOL UD 3ML (DUONEB)(J7620) INH ×4 (07:07→19:31)
[2018-02-05] MEDS: FORMOTEROL FUMARATE 20 MCG/2 ML INHALATION SOLUTION (PERFOROMIST) INH ×2 (07:08→19:31)
[2018-02-05] MEDS: BUDESONIDE 0.25 MG/2 ML INHALATION SUSPENSION INH ×2 (07:08→19:31)
[2018-02-05] MEDS: OMEPRAZOLE 20 MG CAP PO (09:50)
[2018-02-05] MEDS: SUCRALFATE SUSP 1GM/10ML UD PEG ×4 (09:50→20:46)
[2018-02-05] MEDS: ALPRAZolam 0.25 MG TAB PEG ×2 (09:50→17:05)
[2018-02-05] MEDS: oxyCODONE 5MG TAB PO ×2 (12:09→21:10)
[2018-02-05] MEDS: IPRATROPIUM 0.5MG/ALBUTEROL 2.5MG INH SOL UD 3ML (DUONEB)(J7620) NEB (17:28)
[2018-02-05] MEDS: MORPHINE 4 MG/ML 1ML VIAL/SYRINGE (J2270) IV (20:24)
[2018-02-05] MEDS: CitaloPRAM (CeleXA) 10 MG TABLET PEG (20:45)
[2018-02-05] MEDS: NICOTINE 14 MG/24 HR TRANSDERMAL TD (20:47)
[2018-02-06] MEDS: ALPRAZolam 0.25 MG TAB PEG ×4 (02:00→20:42)
[2018-02-06] MEDS: ONDANSETRON 4 MG ORAL DISINTEGRATING TAB (Q0162 PER 1MG) PEG ×2 (02:00→08:34)
[2018-02-06] MEDS: ACETAMINOPHEN 500 MG TAB PEG (02:00)
[2018-02-06] MEDS: BUDESONIDE 0.25 MG/2 ML INHALATION SUSPENSION INH ×2 (07:09→21:15)
[2018-02-06] MEDS: FORMOTEROL FUMARATE 20 MCG/2 ML INHALATION SOLUTION (PERFOROMIST) INH ×2 (07:09→21:15)
[2018-02-06] MEDS: IPRATROPIUM 0.5MG/ALBUTEROL 2.5MG INH SOL UD 3ML (DUONEB)(J7620) INH ×4 (07:15→20:00)
[2018-02-06] MEDS: MORPHINE 4 MG/ML 1ML VIAL/SYRINGE (J2270) IV ×3 (08:33→17:32)
[2018-02-06] MEDS: LANSOPRAZOLE SUSPENSION 30 MG/10 ML ORAL SYRINGE (FIRST-LANSOPRAZOLE) GT (08:33)
[2018-02-06] MEDS: SUCRALFATE SUSP 1GM/10ML UD PEG ×4 (08:33→20:42)
[2018-02-06] MEDS: oxyCODONE 5MG TAB PO (08:34)
[2018-02-06] MEDS: oxyCODONE 5MG TAB PEG ×2 (11:51→16:07)
[2018-02-06] MEDS: CitaloPRAM (CeleXA) 10 MG TABLET PEG (20:42)
[2018-02-06] MEDS: NICOTINE 14 MG/24 HR TRANSDERMAL TD (20:43)
[2018-02-07] MEDS: MORPHINE 4 MG/ML 1ML VIAL/SYRINGE (J2270) IV (02:44)
[2018-02-07] MEDS: ALPRAZolam 0.25 MG TAB PEG ×4 (05:21→21:43)
[2018-02-07] MEDS: ONDANSETRON 4 MG ORAL DISINTEGRATING TAB (Q0162 PER 1MG) PEG (05:21)
[2018-02-07] MEDS: FORMOTEROL FUMARATE 20 MCG/2 ML INHALATION SOLUTION (PERFOROMIST) INH ×2 (07:22→20:14)
[2018-02-07] MEDS: IPRATROPIUM 0.5MG/ALBUTEROL 2.5MG INH SOL UD 3ML (DUONEB)(J7620) INH ×4 (07:23→20:00)
[2018-02-07] MEDS: BUDESONIDE 0.25 MG/2 ML INHALATION SUSPENSION INH ×2 (07:23→20:14)
[2018-02-07] MEDS: LANSOPRAZOLE SUSPENSION 30 MG/10 ML ORAL SYRINGE (FIRST-LANSOPRAZOLE) GT (09:26)
[2018-02-07] MEDS: oxyCODONE 5MG TAB PEG ×3 (09:26→21:43)
[2018-02-07] MEDS: SUCRALFATE SUSP 1GM/10ML UD PEG ×4 (09:26→21:42)
[2018-02-07] MEDS: SCOPOLAMINE 1MG TRANSDERMAL PATCH TD (21:42)
[2018-02-07] MEDS: CitaloPRAM (CeleXA) 10 MG TABLET PEG (21:43)
[2018-02-07] MEDS: NICOTINE 14 MG/24 HR TRANSDERMAL TD (21:43)
[2018-02-08] MEDS: ONDANSETRON 4 MG ORAL DISINTEGRATING TAB (Q0162 PER 1MG) PEG (02:31)
[2018-02-08] MEDS: ALPRAZolam 0.25 MG TAB PEG ×3 (03:36→22:50)
[2018-02-08] MEDS: MORPHINE 4 MG/ML 1ML VIAL/SYRINGE (J2270) IV (05:47)
[2018-02-08] MEDS: FORMOTEROL FUMARATE 20 MCG/2 ML INHALATION SOLUTION (PERFOROMIST) INH ×2 (07:10→20:11)
[2018-02-08] MEDS: BUDESONIDE 0.25 MG/2 ML INHALATION SUSPENSION INH ×2 (07:10→20:11)
[2018-02-08] MEDS: IPRATROPIUM 0.5MG/ALBUTEROL 2.5MG INH SOL UD 3ML (DUONEB)(J7620) INH ×4 (07:10→20:00)
[2018-02-08] MEDS: ACETAMINOPHEN 500 MG TAB PEG ×2 (07:27→22:51)
[2018-02-08] MEDS: SUCRALFATE SUSP 1GM/10ML UD PEG ×4 (09:32→20:21)
[2018-02-08] MEDS: LANSOPRAZOLE SUSPENSION 30 MG/10 ML ORAL SYRINGE (FIRST-LANSOPRAZOLE) GT (09:32)
[2018-02-08] MEDS: oxyCODONE 5MG TAB PEG (18:42)
[2018-02-08] MEDS: NICOTINE 14 MG/24 HR TRANSDERMAL TD (20:21)
[2018-02-08] MEDS: CitaloPRAM (CeleXA) 10 MG TABLET PEG (20:21)
[2018-02-09] MEDS: oxyCODONE 5MG TAB PEG ×3 (04:29→20:40)
[2018-02-09] MEDS: ALPRAZolam 0.25 MG TAB PEG ×3 (07:09→16:44)
[2018-02-09] MEDS: ACETAMINOPHEN 500 MG TAB PEG ×2 (07:09→16:45)
[2018-02-09] MEDS: IPRATROPIUM 0.5MG/ALBUTEROL 2.5MG INH SOL UD 3ML (DUONEB)(J7620) INH ×4 (07:26→19:46)
[2018-02-09] MEDS: FORMOTEROL FUMARATE 20 MCG/2 ML INHALATION SOLUTION (PERFOROMIST) INH ×2 (07:27→19:46)
[2018-02-09] MEDS: BUDESONIDE 0.25 MG/2 ML INHALATION SUSPENSION INH ×2 (07:27→19:46)
[2018-02-09] MEDS: LANSOPRAZOLE SUSPENSION 30 MG/10 ML ORAL SYRINGE (FIRST-LANSOPRAZOLE) GT (09:27)
[2018-02-09] MEDS: SUCRALFATE SUSP 1GM/10ML UD PEG ×4 (09:28→20:39)
[2018-02-09 10:32] LABS: HEMATOCRIT 31.3 % (36.0-47.0); HEMOGLOBIN 9.5 g/dl (12.0-15.5); MEAN CORPUSCULAR HEMOGLOBIN 27.5 pg (27.0-33.0); MEAN CORPUSCULAR HGB CONC 30.4 g/dl (32.0-36.5); MEAN CORPUSCULAR VOLUME 90.5 fl (80.0-96.0); PLATELET COUNT, AUTOMATED 259 10^3/uL (150-450); RED BLOOD COUNT 3.46 10^6/uL (4.00-5.40); RED CELL DISTRIBUTION WIDTH 16.3 % (11.5-14.5); WHITE BLOOD COUNT 6.8 10^3/uL (4.0-10.0)
[2018-02-09] MEDS: MORPHINE 4 MG/ML 1ML VIAL/SYRINGE (J2270) IV (15:35)
[2018-02-09] MEDS: CitaloPRAM (CeleXA) 10 MG TABLET PEG (20:39)
[2018-02-09] MEDS: NICOTINE 14 MG/24 HR TRANSDERMAL TD (20:39)
[2018-02-10] MEDS: ONDANSETRON 4 MG ORAL DISINTEGRATING TAB (Q0162 PER 1MG) PEG ×2 (00:45→11:46)
[2018-02-10] MEDS: ALPRAZolam 0.25 MG TAB PEG ×2 (00:45→11:46)
[2018-02-10] MEDS: oxyCODONE 5MG TAB PEG ×2 (03:33→11:47)
[2018-02-10] MEDS: FORMOTEROL FUMARATE 20 MCG/2 ML INHALATION SOLUTION (PERFOROMIST) INH (07:13)
[2018-02-10] MEDS: IPRATROPIUM 0.5MG/ALBUTEROL 2.5MG INH SOL UD 3ML (DUONEB)(J7620) INH ×2 (07:13→11:11)
[2018-02-10] MEDS: BUDESONIDE 0.25 MG/2 ML INHALATION SUSPENSION INH (07:13)
[2018-02-10] MEDS: SUCRALFATE SUSP 1GM/10ML UD PEG ×2 (07:30→11:46)
[2018-02-10] MEDS: LANSOPRAZOLE SUSPENSION 30 MG/10 ML ORAL SYRINGE (FIRST-LANSOPRAZOLE) GT (09:00)
[2018-02-10 11:12] LABS: HEMATOCRIT 29.1 % (36.0-47.0); MEAN CORPUSCULAR HEMOGLOBIN 27.9 pg (27.0-33.0); MEAN CORPUSCULAR HGB CONC 30.9 g/dl (32.0-36.5); MEAN CORPUSCULAR VOLUME 90.1 fl (80.0-96.0); PLATELET COUNT, AUTOMATED 302 10^3/uL (150-450); RED BLOOD COUNT 3.23 10^6/uL (4.00-5.40); RED CELL DISTRIBUTION WIDTH 16.3 % (11.5-14.5); WHITE BLOOD COUNT 9.2 10^3/uL (4.0-10.0)
[2018-02-10] MEDS ORDERED: DEXTROMETHORPHAN 5 ML SYRUP (ROBITUSSIN PEDIATRIC COUGH) PO (12:00)
[2018-02-10] MEDS ORDERED: DEXTROMETHORPHAN 60MG/10ML SUSP 90ML BTL(DELSYM) PO (13:17)
== END 2018-02-10 14:52 | disposition home health service (06) | DRG 147 ==
LOC: M MS5PR 02-01 19:05 → M ED 02:38 → M ED INP 05:26 → M PCU 08:25
PROVIDERS: Emergency Medicine Pediatric Emergency Medicine
PROC: 30233N1 Transfusion of Nonautologous Red Blood Cells into Peripheral Vein, Percutaneous Approach (ICD-10-PCS; principal; 2018-02-01)
DX: C32.9 Malignant neoplasm of larynx, unspecified (principal); J96.10 Chronic respiratory failure, unspecified whether with hypoxia or hypercapnia; C78.01 Secondary malignant neoplasm of right lung; R64 Cachexia; D62 Acute posthemorrhagic anemia; D63.0 Anemia in neoplastic disease; Z66 Do not resuscitate; R04.1 Hemorrhage from throat; F41.9 Anxiety disorder, unspecified; J44.9 Chronic obstructive pulmonary disease, unspecified; Z93.1 Gastrostomy status; Z86.711 Personal history of pulmonary embolism; Z99.81 Dependence on supplemental oxygen; Z87.891 Personal history of nicotine dependence; Z93.0 Tracheostomy status; Z79.899 Other long term (current) drug therapy

== ENCOUNTER 2018-03-25 19:37 | Inpatient (IN) | payer MEDICARE ==
[2018-03-25 20:29] LABS: BASO % 0.2 % (0.0-1.0); EOS # 0.3 10^3/uL (0.0-0.50); EOS % 3.1 % (0.0-3.0); IMMATURE GRANULOCYTE % 0.4 % (0-3.0); LYMPH # 0.8 10^3/uL (1.5-4.5); LYMPH % 8.5 % (24.0-44.0); MEAN CORPUSCULAR HEMOGLOBIN 23.5 pg (27.0-33.0); MEAN CORPUSCULAR HGB CONC 27.2 g/dl (32.0-36.5); MEAN CORPUSCULAR VOLUME 86.5 fl (80.0-96.0); MONO # 0.5 10^3/uL (0.0-0.8); MONO % 5.6 % (0.0-5.0); NEUTROPHILS # 7.8 10^3/uL (1.8-7.7); NEUTROPHILS % 82.2 % (36.0-66.0); PLATELET COUNT, AUTOMATED 396 10^3/uL (150-450); RED BLOOD COUNT 2.89 10^6/uL (4.00-5.40); RED CELL DISTRIBUTION WIDTH 18.5 % (11.5-14.5); WHITE BLOOD COUNT 9.5 10^3/uL (4.0-10.0)
[2018-03-25 20:43] LABS: HEMOGLOBIN 6.8 g/dl (12.0-15.5)
[2018-03-25 20:46] LABS: INR 1.18; PARTIAL THROMBOPLASTIN TIME 27.2 SECONDS (25.4-37.6); PROTHROMBIN TIME 15.2 SECONDS (12.1-14.4)
[2018-03-25 20:50] LABS: ANION GAP 4 MEQ/L (8-16); BLOOD UREA NITROGEN 46 MG/DL (7-18); CALCIUM LEVEL 9.5 MG/DL (8.8-10.2); CARBON DIOXIDE LEVEL 38 MEQ/L (21-32); CHLORIDE LEVEL 112 MEQ/L (98-107); CREATININE FOR GFR 0.64 MG/DL (0.55-1.30); GLOMERULAR FILTRATION RATE > 60.0 (>32); GLUCOSE, FASTING 165 MG/DL (70-100); POTASSIUM SERUM 3.6 MEQ/L (3.5-5.1); SODIUM LEVEL 154 MEQ/L (136-145)
[2018-03-25] MEDS ORDERED: ISOVUE-370 76% 100ML VIAL (Q9967) As Ordered (20:57)
[2018-03-25] MEDS: NS 500 ML IV (21:40)
[2018-03-25] MEDS: fentaNYL 100 MCG/2 ML INJECTION (J3010) IV (21:45)
[2018-03-25] MEDS: LORazepam 2 MG/ML VIAL (J2060) IV (22:52)
[2018-03-25] MEDS: FORMOTEROL FUMARATE 20 MCG/2 ML INHALATION SOLUTION (PERFOROMIST) INH (23:00)
[2018-03-25] MEDS ORDERED: NYSTATIN 100,000 UNITS/GM TOPICAL PWD 15 GM TOP (23:45)
[2018-03-25] MEDS ORDERED: oxyCODONE 5MG TAB PO (23:45)
[2018-03-25] MEDS ORDERED: IPRATROPIUM 0.5MG/ALBUTEROL 2.5MG INH SOL UD 3ML (DUONEB)(J7620) NEB (23:45)
[2018-03-25] MEDS: BUDESONIDE 0.25 MG/2 ML INHALATION SUSPENSION INH (23:54)
[2018-03-26 00:15] LABS: IMMEDIATE SPIN CROSSMATCH 1 1
[2018-03-26] MEDS: SCOPOLAMINE 1MG TRANSDERMAL PATCH TD (03:22)
[2018-03-26 03:35] LABS: IMMEDIATE SPIN CROSSMATCH 1 1
[2018-03-26] MEDS: BUDESONIDE 0.25 MG/2 ML INHALATION SUSPENSION INH ×2 (08:31→21:32)
[2018-03-26] MEDS: FORMOTEROL FUMARATE 20 MCG/2 ML INHALATION SOLUTION (PERFOROMIST) INH ×2 (08:31→21:32)
[2018-03-26 08:40] LABS: MAGNESIUM LEVEL 2.5 MG/DL (1.8-2.4)
[2018-03-26] MEDS: ALPRAZolam 0.25 MG TAB PEG ×2 (09:14→21:02)
[2018-03-26] MEDS: ONDANSETRON 4 MG ORAL DISINTEGRATING TAB (Q0162 PER 1MG) PEG ×3 (09:14→17:39)
[2018-03-26] MEDS: SUCRALFATE SUSP 1GM/10ML UD PEG ×4 (09:14→21:02)
[2018-03-26] MEDS: OMEPRAZOLE 20 MG CAP PO (09:15)
[2018-03-26 09:54] LABS: HEMATOCRIT 30.4 % (36.0-47.0); HEMOGLOBIN 9.1 g/dl (12.0-15.5); MEAN CORPUSCULAR HEMOGLOBIN 25.6 pg (27.0-33.0); MEAN CORPUSCULAR HGB CONC 29.9 g/dl (32.0-36.5); MEAN CORPUSCULAR VOLUME 85.4 fl (80.0-96.0); PLATELET COUNT, AUTOMATED 374 10^3/uL (150-450); RED BLOOD COUNT 3.56 10^6/uL (4.00-5.40); WHITE BLOOD COUNT 9.3 10^3/uL (4.0-10.0)
[2018-03-26 10:12] LABS: ANION GAP 3 MEQ/L (8-16); BLOOD UREA NITROGEN 36 MG/DL (7-18); CALCIUM LEVEL 9.5 MG/DL (8.8-10.2); CARBON DIOXIDE LEVEL 36 MEQ/L (21-32); CHLORIDE LEVEL 116 MEQ/L (98-107); CREATININE FOR GFR 0.48 MG/DL (0.55-1.30); GLOMERULAR FILTRATION RATE > 60.0 (>32); GLUCOSE, FASTING 84 MG/DL (70-100); POTASSIUM SERUM 3.1 MEQ/L (3.5-5.1); SODIUM LEVEL 155 MEQ/L (136-145)
[2018-03-26] MEDS ORDERED: LORazepam 0.5 MG TAB PO (11:00)
[2018-03-26] MEDS: POTASSIUM CHLORIDE 10% LIQ 20 MEQ/15 ML UDC PEG (12:23)
[2018-03-26] MEDS: POTASSIUM CHLORIDE INJ 40 MEQ in D5W 1,000 ML IV (12:23)
[2018-03-26 15:32] LABS: HEMOGLOBIN 9.4 g/dl (12.0-15.5)
[2018-03-26 16:00] LABS: ANION GAP 2 MEQ/L (8-16); BLOOD UREA NITROGEN 35 MG/DL (7-18); CALCIUM LEVEL 9.5 MG/DL (8.8-10.2); CARBON DIOXIDE LEVEL 35 MEQ/L (21-32); CHLORIDE LEVEL 116 MEQ/L (98-107); CREATININE FOR GFR 0.57 MG/DL (0.55-1.30); GLOMERULAR FILTRATION RATE > 60.0 (>32); GLUCOSE, FASTING 115 MG/DL (70-100); POTASSIUM SERUM 3.9 MEQ/L (3.5-5.1); SODIUM LEVEL 153 MEQ/L (136-145)
[2018-03-26 21:04] LABS: HEMOGLOBIN 8.7 g/dl (12.0-15.5)
[2018-03-26 21:27] LABS: ANION GAP 5 MEQ/L (8-16); BLOOD UREA NITROGEN 33 MG/DL (7-18); CALCIUM LEVEL 9.1 MG/DL (8.8-10.2); CARBON DIOXIDE LEVEL 33 MEQ/L (21-32); CHLORIDE LEVEL 118 MEQ/L (98-107); CREATININE FOR GFR 0.45 MG/DL (0.55-1.30); GLOMERULAR FILTRATION RATE > 60.0 (>32); GLUCOSE, FASTING 94 MG/DL (70-100); POTASSIUM SERUM 4.4 MEQ/L (3.5-5.1); SODIUM LEVEL 156 MEQ/L (136-145)
[2018-03-27] MEDS: POTASSIUM CHLORIDE INJ 40 MEQ in D5W 1,000 ML IV (04:47)
[2018-03-27 05:59] LABS: HEMATOCRIT 28.2 % (36.0-47.0); HEMOGLOBIN 8.4 g/dl (12.0-15.5); MEAN CORPUSCULAR HEMOGLOBIN 25.8 pg (27.0-33.0); MEAN CORPUSCULAR HGB CONC 29.8 g/dl (32.0-36.5); MEAN CORPUSCULAR VOLUME 86.8 fl (80.0-96.0); PLATELET COUNT, AUTOMATED 331 10^3/uL (150-450); RED BLOOD COUNT 3.25 10^6/uL (4.00-5.40); WHITE BLOOD COUNT 8.7 10^3/uL (4.0-10.0)
[2018-03-27 06:33] LABS: ANION GAP 5 MEQ/L (8-16); BLOOD UREA NITROGEN 29 MG/DL (7-18); CARBON DIOXIDE LEVEL 31 MEQ/L (21-32); CHLORIDE LEVEL 114 MEQ/L (98-107); CREATININE FOR GFR 0.41 MG/DL (0.55-1.30); GLOMERULAR FILTRATION RATE > 60.0 (>32); GLUCOSE, FASTING 80 MG/DL (70-100); POTASSIUM SERUM 4.5 MEQ/L (3.5-5.1); SODIUM LEVEL 150 MEQ/L (136-145)
[2018-03-27] MEDS: OMEPRAZOLE 20 MG CAP PO (07:35)
[2018-03-27] MEDS: SUCRALFATE SUSP 1GM/10ML UD PEG ×4 (07:35→22:01)
[2018-03-27] MEDS: ONDANSETRON 4 MG ORAL DISINTEGRATING TAB (Q0162 PER 1MG) PEG ×4 (07:35→23:16)
[2018-03-27] MEDS: BUDESONIDE 0.25 MG/2 ML INHALATION SUSPENSION INH ×2 (07:57→20:58)
[2018-03-27] MEDS: FORMOTEROL FUMARATE 20 MCG/2 ML INHALATION SOLUTION (PERFOROMIST) INH ×2 (07:57→20:58)
[2018-03-27] MEDS ORDERED: LIDOCAINE 2% INJ 100 MG/5 ML SDV (FOR ANES.) As Ordered (16:24)
[2018-03-27] MEDS ORDERED: ONDANSETRON 4MG/2ML VIAL (J2405) As Ordered (16:48)
[2018-03-27] MEDS: CETACAINE SPRAY 5GM As Ordered (16:51)
[2018-03-27] MEDS: LIDOCAINE 1% MDV 20ML VIAL As Ordered (17:01)
[2018-03-27] MEDS ORDERED: ROCURONIUM BROMIDE 50 MG/5 ML VIAL As Ordered (17:06)
[2018-03-27] MEDS ORDERED: NEOSTIGMINE 10 MG/10 ML VIAL (J2710) As Ordered (17:06)
[2018-03-27] MEDS ORDERED: GLYCOPYRROLATE INJ 0.2 MG/ML 2 ML VIAL As Ordered (17:06)
[2018-03-27] MEDS ORDERED: PHENYLephrine HCL 500 MCG/5 ML (100MCG/ML) SYRINGE (J2370) As Ordered (17:09)
[2018-03-27] MEDS ORDERED: fentaNYL 100 MCG/2 ML INJECTION (J3010) As Ordered (17:14)
[2018-03-27] MEDS ORDERED: HYDROMORPHONE HCL 0.5 MG/ 0.5 ML SYRINGE (J1170 PER 1) IV (17:45)
[2018-03-27] MEDS ORDERED: fentaNYL 100 MCG/2 ML INJECTION (J3010) IV (17:45)
[2018-03-27] MEDS ORDERED: ONDANSETRON 4MG/2ML VIAL (J2405) IV (17:45)
[2018-03-27] MEDS ORDERED: PERCOCET 5MG/325MG TAB PO (17:45)
[2018-03-27 19:27] LABS: HEMATOCRIT 30.6 % (36.0-47.0); HEMOGLOBIN 8.8 g/dl (12.0-15.5)
[2018-03-27 19:57] LABS: ANION GAP 8 MEQ/L (8-16); BLOOD UREA NITROGEN 23 MG/DL (7-18); CALCIUM LEVEL 8.9 MG/DL (8.8-10.2); CARBON DIOXIDE LEVEL 28 MEQ/L (21-32); CHLORIDE LEVEL 113 MEQ/L (98-107); GLOMERULAR FILTRATION RATE > 60.0 (>32); GLUCOSE, FASTING 73 MG/DL (70-100); POTASSIUM SERUM 4.4 MEQ/L (3.5-5.1); SODIUM LEVEL 149 MEQ/L (136-145)
[2018-03-27 21:09] LABS: HEMATOCRIT 30.2 % (36.0-47.0); HEMOGLOBIN 8.8 g/dl (12.0-15.5)
[2018-03-27] MEDS: guaiFENesin/CODEINE SYRUP 5 ML UDC PO (22:01)
[2018-03-28 02:50] LABS: HEMATOCRIT 26.9 % (36.0-47.0); HEMOGLOBIN 7.9 g/dl (12.0-15.5)
[2018-03-28 06:07] LABS: HEMATOCRIT 26.1 % (36.0-47.0); HEMOGLOBIN 7.7 g/dl (12.0-15.5); MEAN CORPUSCULAR HEMOGLOBIN 25.2 pg (27.0-33.0); MEAN CORPUSCULAR HGB CONC 29.5 g/dl (32.0-36.5); MEAN CORPUSCULAR VOLUME 85.6 fl (80.0-96.0); PLATELET COUNT, AUTOMATED 301 10^3/uL (150-450); RED BLOOD COUNT 3.05 10^6/uL (4.00-5.40); RED CELL DISTRIBUTION WIDTH 19.2 % (11.5-14.5); WHITE BLOOD COUNT 8.6 10^3/uL (4.0-10.0)
[2018-03-28 06:21] LABS: ANION GAP 3 MEQ/L (8-16); BLOOD UREA NITROGEN 27 MG/DL (7-18); CALCIUM LEVEL 8.1 MG/DL (8.8-10.2); CARBON DIOXIDE LEVEL 32 MEQ/L (21-32); CHLORIDE LEVEL 108 MEQ/L (98-107); CREATININE FOR GFR 0.47 MG/DL (0.55-1.30); GLOMERULAR FILTRATION RATE > 60.0 (>32); GLUCOSE, FASTING 110 MG/DL (70-100); POTASSIUM SERUM 4.5 MEQ/L (3.5-5.1); SODIUM LEVEL 143 MEQ/L (136-145)
[2018-03-28] MEDS: FORMOTEROL FUMARATE 20 MCG/2 ML INHALATION SOLUTION (PERFOROMIST) INH ×2 (08:04→20:55)
[2018-03-28] MEDS: BUDESONIDE 0.25 MG/2 ML INHALATION SUSPENSION INH ×2 (08:04→20:55)
[2018-03-28] MEDS: OMEPRAZOLE 20 MG CAP PO (09:32)
[2018-03-28] MEDS: SUCRALFATE SUSP 1GM/10ML UD PEG ×4 (09:32→21:09)
[2018-03-28 12:13] LABS: SODIUM LEVEL 144 MEQ/L (136-145)
[2018-03-28] MEDS: ONDANSETRON 4 MG ORAL DISINTEGRATING TAB (Q0162 PER 1MG) PEG ×3 (12:30→23:10)
[2018-03-28 14:59] LABS: IMMEDIATE SPIN CROSSMATCH 1 1
[2018-03-28] MEDS: ACETAMINOPHEN 325 MG/10.15 ML UDC PEG (21:10)
[2018-03-28] MEDS: SCOPOLAMINE 1MG TRANSDERMAL PATCH TD (21:12)
[2018-03-29] MEDS ORDERED: MIRALAX *UNIT DOSE* 17GM PACKET PEG
[2018-03-29 06:43] LABS: HEMATOCRIT 31.6 % (36.0-47.0); HEMOGLOBIN 9.3 g/dl (12.0-15.5); MEAN CORPUSCULAR HEMOGLOBIN 25.5 pg (27.0-33.0); MEAN CORPUSCULAR HGB CONC 29.4 g/dl (32.0-36.5); MEAN CORPUSCULAR VOLUME 86.8 fl (80.0-96.0); PLATELET COUNT, AUTOMATED 277 10^3/uL (150-450); RED BLOOD COUNT 3.64 10^6/uL (4.00-5.40); RED CELL DISTRIBUTION WIDTH 18.7 % (11.5-14.5); WHITE BLOOD COUNT 7.7 10^3/uL (4.0-10.0)
[2018-03-29 07:15] LABS: ANION GAP 5 MEQ/L (8-16); BLOOD UREA NITROGEN 22 MG/DL (7-18); CALCIUM LEVEL 9.1 MG/DL (8.8-10.2); CARBON DIOXIDE LEVEL 31 MEQ/L (21-32); CHLORIDE LEVEL 107 MEQ/L (98-107); CREATININE FOR GFR 0.37 MG/DL (0.55-1.30); GLOMERULAR FILTRATION RATE > 60.0 (>32); GLUCOSE, FASTING 71 MG/DL (70-100); POTASSIUM SERUM 3.9 MEQ/L (3.5-5.1); SODIUM LEVEL 143 MEQ/L (136-145)
[2018-03-29] MEDS: BUDESONIDE 0.25 MG/2 ML INHALATION SUSPENSION INH (07:47)
[2018-03-29] MEDS: FORMOTEROL FUMARATE 20 MCG/2 ML INHALATION SOLUTION (PERFOROMIST) INH (07:47)
[2018-03-29] MEDS: OMEPRAZOLE 20 MG CAP PO (08:31)
[2018-03-29] MEDS: SUCRALFATE SUSP 1GM/10ML UD PEG (08:31)
[2018-03-29] MEDS: ONDANSETRON 4 MG ORAL DISINTEGRATING TAB (Q0162 PER 1MG) PEG (08:32)
[2018-03-29] MEDS ORDERED: ONDANSETRON 4 MG ORAL DISINTEGRATING TAB (Q0162 PER 1MG) PEG (09:00)
== END 2018-03-29 12:20 | disposition home health service (06) | DRG 147 ==
LOC: M MSPAV 03-26 01:45 → M ED 19:37 → M ED INP 23:30
PROC: 0BJL8ZZ Inspection of Left Lung, Via Natural or Artificial Opening Endoscopic (ICD-10-PCS; 2018-03-27 13:00)
PROC: 30233N1 Transfusion of Nonautologous Red Blood Cells into Peripheral Vein, Percutaneous Approach (ICD-10-PCS; principal; 2018-03-27 16:33)
DX: C32.9 Malignant neoplasm of larynx, unspecified (principal); D62 Acute posthemorrhagic anemia; J98.11 Atelectasis; E87.0 Hyperosmolality and hypernatremia; J96.10 Chronic respiratory failure, unspecified whether with hypoxia or hypercapnia; R64 Cachexia; C78.00 Secondary malignant neoplasm of unspecified lung; Z68.1 Body mass index [BMI] 19.9 or less, adult; Z66 Do not resuscitate; J44.9 Chronic obstructive pulmonary disease, unspecified; F41.9 Anxiety disorder, unspecified; K21.9 Gastro-esophageal reflux disease without esophagitis; Z86.711 Personal history of pulmonary embolism; J98.09 Other diseases of bronchus, not elsewhere classified; Z93.0 Tracheostomy status; Z99.81 Dependence on supplemental oxygen; Z93.1 Gastrostomy status; Z79.899 Other long term (current) drug therapy; Z87.891 Personal history of nicotine dependence

== ENCOUNTER 2018-03-29 19:19 | Emergency (ER) | payer MEDICARE | END 2018-03-29 20:10 | disposition home or self-care (01) | LOC: M ED 19:19 | DX: K94.29 Other complications of gastrostomy (principal); I10 Essential (primary) hypertension; I25.10 Atherosclerotic heart disease of native coronary artery without angina pectoris; Z79.899 Other long term (current) drug therapy; Z87.891 Personal history of nicotine dependence | CPT/HCPCS: 99283 ==

== ENCOUNTER 2018-04-03 18:30 | Emergency (ER) | payer MEDICARE ==
[2018-04-03] MEDS: IBUPROFEN 100 MG/5 ML SUSP UDC DYE FREE PO (19:38)
[2018-04-03] MEDS: CEFPROZIL 125 MG/5 ML GT (20:58)
== END 2018-04-03 21:45 | disposition home or self-care (01) ==
LOC: M ED 18:30
DX: L03.113 Cellulitis of right upper limb (principal)
CPT/HCPCS: 99284